=== PATIENT | female | born 1945 | race Caucasian/White ===

== ENCOUNTER → 2018-02-06 14:24 | Outpatient (CLI) | payer MEDICARE, OTHER, SELFPAY ==
[2018-02-06 15:19] LABS: Free T4, Direct Thyroxine 1.22 ng/dL (0.78-2.19)
[2018-02-06 15:33] LABS: Thyroid Stimulating Hormone 1.15 uIU/mL (0.47-4.68)
== END ==
PROVIDERS: Family Provider Family Medicine; PCP Family Medicine; Visit Provider Nurse Practitioner
DX: E03.8 Other specified hypothyroidism (principal); E06.3 Autoimmune thyroiditis
CPT/HCPCS: 36415; 84439; 84443

== ENCOUNTER 2018-03-21 10:25 | Inpatient (IN) | payer MEDICARE, OTHER, SELFPAY ==
[2018-03-21] VITALS (12 sets, daily range): BP systolic 121–146; BP diastolic 63–79; PULSE 63–72; RESP 12–17; TEMP 36.1–36.7; O2SAT 69–98; BMI 27.7
--- NOTE | 2018-03-21 10:39 | DI.RAD.S_ITS ---
PROCEDURE: XR ANKLE RT MIN 3V INDICATIONS: injury TECHNIQUE: 3 views of the ankle were acquired. COMPARISON: None. FINDINGS: Bones: Comminuted and impacted intra-articular fractures of the distal tibia and fibula. Medial malleolar fracture. Plantar and posterior calcaneal spurring. Soft tissues: No tibiotalar joint effusion. Achilles tendon appears normal. IMPRESSION: Comminuted intra-articular fractures of the distal tibia and fibula as well as the medial malleolus. Chronic plantar and posterior calcaneal spurring. Dictated by: Maurisio Wylie M.D. on 03/21/2018 at 11:20 Approved by: Maurisio Wylie M.D. on 03/21/2018 at 11:22
--- NOTE | 2018-03-21 11:13 | ED_ITS ---
HPI - Extremity Injury (Lower) General Chief Complaint: Extremity Injury, Lower Stated Complaint: TWISTED RIGHT ANKLE Time Seen by Provider: 03/21/18 10:44 Source: patient Mode of arrival: wheelchair Limitations: no limitations History of Present Illness HPI Narrative: Patient is a 72-year-old female here for evaluation of right ankle injury. Patient states that prior to arrival she was walking outside in her yard in some wet grass when she slipped and fell. Patient states that she had immediate pain and right ankle. Has deformity. Is unable to ambulate. Did not hit her head. No loss consciousness. No other injuries reported from the event Related Data Home Medications Medication Instructions Recorded Confirmed [CoQ10] 300 mg #0 05/03/16 cholecalciferol (vitamin D3) 5,000 unit PO #0 05/03/16 [Vitamin D3] [krill oil] 1,000 mg PO QDAY #0 03/04/17 cyanocobalamin (vitamin B-12) 5,000 mcg PO #0 03/04/17 magnesium oxide 400 mg PO PRN #0 04/14/17 [SPIROLINA] 1,000 mg PO DAILY #0 05/26/17 [calcium citrate] 1,000 mg PO QDAY #0 11/21/17 levothyroxine 50 mcg PO QAM #0 11/21/17 Previous Rx's Medication Instructions Recorded estradiol 0 PO SEE INSTRUCTIONS #45 tab 09/11/17 progesterone micronized 0 PO SEE INSTRUCTIONS 90 Days #45 09/11/17 [Prometrium] tab hydrocodone-acetaminophen 1 tab PO Q4H PRN #20 tab 03/21/18 Allergies Allergy/AdvReac Type Severity Reaction Status Date / Time No Known Drug Allergies Allergy Verified 03/21/18 11:36 Review of Systems Constitutional Denies fatigue and Denies fever(s) ENT Ears, Nose, Mouth, and Throat: Denies vertigo and Denies dizziness Cardiovascular Denies chest pain, Denies syncope, Denies palpitations and Denies dyspnea Respiratory Denies dyspnea Gastrointestinal Gastrointestinal: Denies abdominal pain, Denies diarrhea, Denies nausea and Denies vomiting Genitourinary Denies dysuria Musculoskeletal Comments: Right ankle pain and deformity Integumentary/Breasts Denies lesions and Denies rash Neurologic Denies confusion, Denies vertigo, Denies dizziness and Denies syncope Comments: No numbness or tingling right lower extremity Psychiatric Denies confusion Endocrine Denies fatigue and Denies palpitations Hematologic/Lymphatic Denies easy bleeding and Denies easy bruising PFSH Family History Father Diabetes mellitus Heart disease Hypertension Grandmother Throat cancer Mother Cancer Mental health problem Grandfather Diabetes mellitus Heart disease Hypertension Social History household members: none Smoking Status: Never smoker Exam Initial Vital Signs Initial Vital Signs: Vital Signs Temperature 96.9 F L 03/21/18 10:35 Pulse Rate 67 03/21/18 10:35 Respiratory Rate 12 03/21/18 10:35 Blood Pressure 132/77 H 03/21/18 10:35 Pulse Oximetry 98 03/21/18 10:35 Const General: cooperative, healthy appearing, well developed and well groomed Orientation: alert, awake and oriented x3 HENMT Head: normal to inspection, normocephalic and atraumatic Ears: hearing grossly normal bilaterally Nose: external nose normal Face and sinus: normal facial exam Resp Effort & Inspection: normal respiratory effort Auscultation: clear to auscultation bilaterally Cardio Rate: regular rate Rhythm: regular rhythm Pulses: radial pulses present bilaterally and dorsalis pedis present on the right GI Inspection: non-distended Palpation: soft and No firm Skin Lesions: no lesions Rashes: no rashes Other: Skin intact around the right ankle Neuro General: alert, awake and oriented x3 Cognition: normal cognition Speech: speech normal Other: Sensation intact to light touch right lower extremity Extrem General: capillary refill normal Other: Right knee unremarkable Patient with obvious deformity and tenderness to palpation about the right ankle. Psych Appearance: grossly normal, well kempt and not disheveled Procedures Orthopedic Splinting/Casting Injury #1: Lower Extremity Injury Location: ankle Lower Extremity Immobilizer: posterior splint and stirrup splint Other Orthopedic Equipment: crutches Course Orders Ordered: ED Orders 03/21/18 10:39 XR ankle RT min 3V Stat 03/21/18 13:53 CT LE RT wo con Stat 03/21/18 15:54 XR ankle RT min 3V Stat 03/21/18 16:54 Consult to Orthopedic Surgery Routine 03/21/18 16:55 Consult to [place] Stat Diazepam (Valium) 5 mg PO Q4HR PRN PRN Reason: spasms Hydromorphone HCl (Dilaudid) 0.5 mg IV Q1H PRN PRN Reason: Pain, Severe (7-10) Morphine Sulfate (Morphine) 2 mg IV Q4HR PRN PRN Reason: Pain, Moderate (4-6) Ondansetron HCl (Zofran) 4 mg IV Q4HR PRN PRN Reason: Nausea And Vomiting Oxycodone HCl (Percolone) 5 mg PO Q3HR PRN PRN Reason: Pain, Moderate (4-6) Discontinued Medications Hydrocodone Bitart/Acetaminophen ([place] 5/325) 1 tab PO NOW ONE Stop: 03/21/18 12:06 Last Admin: 03/21/18 12:18 Dose: 1 tab Diazepam (Valium) 5 mg PO NOW ONE Stop: 03/21/18 15:20 Last Admin: 03/21/18 15:26 Dose: 5 mg Diazepam (Valium) 5 mg PO Q4HR LORENZO Hydromorphone HCl (Dilaudid) 0.5 mg IM NOW ONE Stop: 03/21/18 11:30 Last Admin: 03/21/18 11:36 Dose: 0.5 mg Hydromorphone HCl (Dilaudid) 1 mg IV NOW ONE Stop: 03/21/18 15:20 Last Admin: 03/21/18 15:58 Dose: 1 mg Oxycodone HCl (Oxycodone) 5 mg PO Q3HR PRN PRN Reason: Pain, Moderate (4-6) Vital Signs - 8 hr 03/21/18 11:33 03/21/18 12:19 03/21/18 12:53 Temperature Pulse Rate 72 68 Respiratory Rate 16 Blood Pressure Blood Pressure [Right Arm] 136/63 H 142/76 H 137/64 H Pulse Oximetry 96 98 03/21/18 13:16 03/21/18 14:14 03/21/18 15:24 Temperature Pulse Rate 70 72 Respiratory Rate 16 14 Blood Pressure Blood Pressure [Right Arm] 146/73 H 140/63 H 124/72 H Pulse Oximetry 98 69 L 03/21/18 16:15 03/21/18 17:20 03/21/18 17:30 Temperature 97.5 F L Pulse Rate 68 70 Respiratory Rate 16 17 Blood Pressure 131/69 H Blood Pressure [Right Arm] 121/67 H 127/69 H Pulse Oximetry 97 97 93 MDM - Extremity Injury (Lower) Imaging Data Ankle x-ray: Radiologist's impression: PROCEDURE: XR ANKLE RT MIN 3V INDICATIONS: injury TECHNIQUE: 3 views of the ankle were acquired. COMPARISON: None. FINDINGS: Bones: Comminuted and impacted intra-articular fractures of the distal tibia and fibula. Medial malleolar fracture. Plantar and posterior calcaneal spurring. Soft tissues: No tibiotalar joint effusion. Achilles tendon appears normal. IMPRESSION: Comminuted intra-articular fractures of the distal tibia and fibula as well as the medial malleolus. Chronic plantar and posterior calcaneal spurring. Dictated by: Maurisio Wylie M.D. on 03/21/2018 at 11:20 CT scan ankle: Radiologist's impression: PROCEDURE: CT LE RT WO CON INDICATIONS: Right distal tibia fracture requested by Orthopedics TECHNIQUE: Noncontrast 1-1.5 mm axial sections acquired from above the tibiotalar joint to the bottom of the calcaneus, with coronal and sagittal reformats. COMPARISON: [facility], , XR ANKLE RT MIN 3V, 03/21/2018, 10:24. FINDINGS: Image quality: Excellent. Bones: Severely displaced medial and posterior malleolar fracture. There are punctate loose bodies seen within the tibiotalar joint space. Comminuted displaced fracture of the lateral malleolus at above the level of the tibiofibular syndesmosis there is gross distal tibial articular surface irregularity. The talus appears intact. There is anterior subluxation of the distal tibia relative to the talus Soft tissues: Associated, diffuse circumferential subcutaneous edema IMPRESSION: Comminuted complex trimalleolar fracture subluxation as above. Dictated by: Maurisio Wylie M.D. on 03/21/2018 at 14:47 Approved by: Maurisio Wylie M.D. on 03/21/2018 at 14:50 [facility] Narrative Medical decision making narrative: Patient is neurovascularly intact. Does have a distal tibia/right ankle fracture. I discussed the case with Dr. Franco with Orthopedics who stated that the patient could be placed in a posterior splint and a stirrup and sent home with pain medication and crutches. Splint was placed as above. Just prior to the patient being discharged doctor Franco called back and stated that after he evaluated the x-rays he recommended a CT scan of the ankle. This was obtained. He evaluated the CT scan along with the foot and ankle specialist who recommended further reduction of the ankle. He did come into the emergency department to perform this and removed the splint that I placed and placed a new splint. Afterwards the patient expressed concerns about being able to take care for self at home. She lives alone at home. Dr. Franco will admit for pain control. I discussed the course with the patient. She expressed understanding and agreement. Discharge Plan Departure Patient Disposition: Admitted as Observation Clinical Impression: Closed right ankle fracture Discharge Date/Time: 03/21/18 17:39 Interventions: ED Discharge Assessment Last Done: 03/21/18 17:32 Admit Date/Time: 03/21/18 17:14 Admit Provider: Prieto Franco
[2018-03-21] MEDS: HYDROMORPHONE 2 MG INJ 0.5 MG IM (11:36)
[2018-03-21] MEDS: HYDROCODONE/ACET 5/325 TABLET 1 TAB PO (12:18)
--- NOTE | 2018-03-21 13:53 | DI.CT.S_ITS ---
PROCEDURE: CT LE RT WO CON INDICATIONS: Right distal tibia fracture requested by Orthopedics TECHNIQUE: Noncontrast 1-1.5 mm axial sections acquired from above the tibiotalar joint to the bottom of the calcaneus, with coronal and sagittal reformats. COMPARISON: [facility], CR, XR ANKLE RT MIN 3V, 03/21/2018, 10:24. FINDINGS: Image quality: Excellent. Bones: Severely displaced medial and posterior malleolar fracture. There are punctate loose bodies seen within the tibiotalar joint space. Comminuted displaced fracture of the lateral malleolus at above the level of the tibiofibular syndesmosis there is gross distal tibial articular surface irregularity. The talus appears intact. There is anterior subluxation of the distal tibia relative to the talus Soft tissues: Associated, diffuse circumferential subcutaneous edema IMPRESSION: Comminuted complex trimalleolar fracture subluxation as above. Dictated by: Maurisio Wylie M.D. on 03/21/2018 at 14:47 Approved by: Maurisio Wylie M.D. on 03/21/2018 at 14:50
[2018-03-21] MEDS: diazePAM 5 MG TABLET PO ×2 (15:26→20:53)
--- NOTE | 2018-03-21 15:54 | DI.RAD.S_ITS ---
PROCEDURE: XR ANKLE RT MIN 3V INDICATIONS: repeat post splint right ankle TECHNIQUE: 3 views of the ankle were acquired. COMPARISON: [facility], CR, XR ANKLE RT MIN 3V, 03/21/2018, 10:24. FINDINGS: Bones: There is slightly improved alignment of the medial, posterior and lateral malleolar fractures, status post reduction and placement of cast. IMPRESSION: Improved alignment as above, status post reduction and placement of cast. Dictated by: Maurisio Wylie M.D. on 03/21/2018 at 16:35 Approved by: Maurisio Wylie M.D. on 03/21/2018 at 16:37
[2018-03-21] MEDS: HYDROMORPHONE 1 MG INJ IV (15:58)
--- NOTE | 2018-03-21 16:25 | P.CONS_ITS ---
History of Present Illness Date Patient Seen: 03/21/18 Time Patient Seen: 15:14 Chief complaint: TWISTED RIGHT ANKLE Reason for consult: Right ankle fracture subluxation Requesting provider: Singh Fox Narrative: Ms. Willis is a 72 yo F with a fall from standing and sustained a closed fracture today. She has a trimalleolar fracture with subluxation. She was splinted by Dr. Fox and a CT was ordered under my instruction. CT shows lateral and posterior subluxation of her ankle joint with large posterior malleolus fracture piece. Orthopaedic service was consulted for additional evaluation and treatment. [facility] Family History Father Diabetes mellitus Heart disease Hypertension Grandmother Throat cancer Mother Cancer Mental health problem Grandfather Diabetes mellitus Heart disease Hypertension Social History Smoking Status: Never smoker Meds Home Medications Medication Instructions Recorded Confirmed Type [CoQ10] 300 mg #0 05/03/16 History cholecalciferol (vitamin D3) 5,000 unit PO #0 05/03/16 History [Vitamin D3] [krill oil] 1,000 mg PO QDAY #0 03/04/17 History cyanocobalamin (vitamin B-12) 5,000 mcg PO #0 03/04/17 History magnesium oxide 400 mg PO PRN #0 04/14/17 History [SPIROLINA] 1,000 mg PO DAILY #0 05/26/17 History estradiol 0 PO SEE INSTRUCTIONS #45 tab 09/11/17 Rx progesterone micronized 0 PO SEE INSTRUCTIONS 90 Days #45 09/11/17 Rx [Prometrium] tab [calcium citrate] 1,000 mg PO QDAY #0 11/21/17 History levothyroxine 50 mcg PO QAM #0 11/21/17 History hydrocodone-acetaminophen 1 tab PO Q4H PRN #20 tab 03/21/18 Rx Allergies Allergy/AdvReac Type Severity Reaction Status Date / Time No Known Drug Allergies Allergy Verified 03/21/18 11:36 Review of Systems Review of Systems All systems reviewed & are unremarkable except as noted in HPI and below Exam Vital Signs (past 8 hours): - 03/21/18 10:35 03/21/18 11:33 03/21/18 12:19 Temperature 96.9 F L Pulse Rate 67 72 68 Respiratory Rate 12 16 Blood Pressure 132/77 H Blood Pressure [Right Arm] 136/63 H 142/76 H Pulse Oximetry 98 96 98 03/21/18 12:53 03/21/18 13:16 03/21/18 14:14 Temperature Pulse Rate 70 Respiratory Rate 16 Blood Pressure Blood Pressure [Right Arm] 137/64 H 146/73 H 140/63 H Pulse Oximetry 98 03/21/18 15:24 Temperature Pulse Rate 72 Respiratory Rate 14 Blood Pressure Blood Pressure [Right Arm] 124/72 H Pulse Oximetry 69 L Oxygen Delivery Method Room Air Extrem Other: Right LE: well perfused, compartments soft, able to move toes and normal sensation. Significant welling over ankle region. No skin lesions. Objective Imaging x-ray ankle:: My impression: Right ankle with trimalleolar fx and lateral and posterior subluxation. Assessment & Plan Plan: Assessment/Plan Narrative: 72 yo F with closed right ankle fracture and subluxation. I removed her splint in the ED. I performed close reduction manuver in the ED with IV pain medicine and oral muscle relaxant. Verbal consent was obtained. Patient tolerated the procedure well. A new splint with stirup was applied. Repeat x-ray was evaluated and found to have improved but still mildly posteriorly subluxed ankle, most likely due to gross instability. I discussed the case and my findings with Dr. Ortiz, a foot and ankle orthopedic surgeon. She will plan to perform ORIF of right ankle fx after strict ice and elevation to decrease soft tissue swelling Patient knows Dr. Ortiz and requested her to resume future care of her ankle. I discussed patient's care plan with Dr. Fox. My office will arrange surgery for Ms. Willis for next week once her soft tissue is less swollen. Risk for wound dehiscience for performing surgery in a significant swollen ankle was discussed with the patient. She understands and will perform strict ice and elevation until surgery time. Time Spent With Patient Time with patient: Greater than 35 minutes
--- NOTE | 2018-03-21 18:02 | PC.NURSE ---
Patient arrived via stretcher from ED. Patient was able to move self off of gerny and to room bed w/ minimal assistance of supporting affected RT LE. Cast was placed in ED by provider, see Dr. Franco's note for details. CMS intact, PP in Left foot is ++ unable to obtain from affected ext due to cast placement. Brisk cap refill to bilat. LE. Amnanet reports pain is 3-4/10 and is comfortable at this time. Patient does reports freq. muscle spasms to affected LE
[2018-03-21] MEDS: OXYCODONE IR 5 MG TABLET PO (20:53)
[2018-03-21] MEDS: SODIUM CHLORIDE 0.9% FLUSH 10 ML IV (21:47)
[2018-03-21] MEDS: MORPHINE 2 MG/ML INJ IV (23:02)
[2018-03-22] MEDS: OXYCODONE IR 5 MG TABLET PO ×4 (00:33→16:19)
[2018-03-22 04:22] VITALS: BP 111/71; PULSE 63; RESP 16; TEMP 36.6; O2SAT 96
[2018-03-22] MEDS: diazePAM 5 MG TABLET PO ×4 (06:36→21:02)
[2018-03-22 07:40] VITALS: BP 125/57; PULSE 61; RESP 16; TEMP 36.8; O2SAT 94
[2018-03-22] MEDS: SODIUM CHLORIDE 0.9% FLUSH 10 ML IV ×2 (09:06→20:58)
--- NOTE | 2018-03-22 10:10 | CM.DANOTE ---
Addendum entered by JAYASHREE Engle 03/22/18 13:33: ADD: Per MD, pt medically stable to d/c home today pending PT. Per PT, pt was able to get up and shower but currently refusing PT due to pain and pt has concerns about going home today. PT will try to work with pt this afternoon to determine if she is safe for d/c home yet today. Plan: SW to follow closely after PT to determine if pt can safely d/c home today or tomorrow. JAYASHREE Engle Original Note: Patient is a 72 year old female who was admitted on 03/21/18 for Twisted Right Ankle. Pt has [employer] insurance and her PCP is Dr. Johnson. EMR was reviewed. Per , likely plan of surgical procedure as outpt after discharge. SW met bedside with pt and 2 supportive friends and explained role and pt confirmed that she lives in [place] alone but her 2 next door neighbors are her good supportive friends. Pt is typically Independent at baseline and she drives and denies any hx of HH or SNF. Pt's DPOA is her son who lives in [place] but is flying in this evening to stay with the pt for assist. Pt preference is to d/c home with her son to stay and friends to assist as well if needed. Pt does not anticipate any SW needs. Plan: SW to follow for likely pt d/c home with son to stay and friends to assist when medically stable, possibly even today. 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 Is this patient on Medicare? Yes Is the admit diagnosis the same? No Comment fracture Prior Living Arrangements House Household Members none Type of transporation used prior to Drives own vehicle admit Independent with ADL's Yes Is patient alert and oriented? Yes Caregiver for Another No Comment I at baseline and no other supportive services at baseline. Referrals Initiated None needed Comment Pt has very supportive 2 neighbor/friends bedside who can assist at d/c Discharge Plan Home Transportation Arrangement Friends can provide transport Additional Comment Son flying in today and will stay with pt annika. Review Status In Process Next Review Type Discharge Review
--- NOTE | 2018-03-22 11:00 | PT.IPTN ---
Physical Therapy Treatment Note M3 PT-IP Subjective Start: 03/22/18 12:57 Freq: Status: Active Protocol: Document 03/22/18 11:00 [facility] (Rec: 03/22/18 12:59 [facility] [id number]) Subjective Physical Therapy Visit Type Type Patient Refusal Notes Pt refused to get OOB at this time. 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 Her son will not be here until tonight, she does not think she can go home today. She has 3 SE without rails. Crutch training ordered , but due to pt's age may not be able to use crutches. She may require use of FWW and likely at least 2-3 assist to get into home. Will confirm once pt agreeable to PT.
--- NOTE | 2018-03-22 11:00 | PM.PN.1 ---
Exam Vital Signs (past 8 hours): - 03/22/18 04:22 03/22/18 07:40 Temperature 97.8 F 98.2 F Pulse Rate 63 61 Respiratory Rate 16 16 Blood Pressure 111/71 125/57 H Pulse Oximetry 96 94 Oxygen Delivery Method Room Air Oxygen Flow Rate 0 Assessment & Plan Plan: Assessment/Plan Narrative: Ms. Willis was admitted for pain control and mobility training after a trimalleolar fracture. Her pain is well controlled with oral medication. On exam, her right ankle is neurovascularly intact with no s/s of compartment syndrome or DVT. Will discharge to home today. Instructions given for strict ice and elevate once home. Quality VTE Deep Vein Thrombosis/Pulmonary Embolism Present on Admission: No
--- NOTE | 2018-03-22 11:02 | PM.PN.1 ---
Exam Vital Signs (past 8 hours): - 03/22/18 04:22 03/22/18 07:40 Temperature 97.8 F 98.2 F Pulse Rate 63 61 Respiratory Rate 16 16 Blood Pressure 111/71 125/57 H Pulse Oximetry 96 94 Oxygen Delivery Method Room Air Oxygen Flow Rate 0 Quality VTE Deep Vein Thrombosis/Pulmonary Embolism Present on Admission: No
[2018-03-22 11:25] LABS: Hemoglobin 14.4 g/dL (12.0-16.0); Mean Corpuscular HGB Conc 34.2 % (30-36); Mean Corpuscular Hemoglobin 30.6 PG (26-34); Mean Corpuscular Volume 89.6 fL (80-100); Platelet Count 204 X10^3/uL (150-400); Red Blood Cell Count 4.69 X10^6/uL (4.0-5.2); Red Cell Distribution Width 13.1 % (11.6-14.8); White Blood Cell Count 4.9 X10^3/uL (4.5-11.0)
[2018-03-22] MEDS: MORPHINE 2 MG/ML INJ IV (11:33)
[2018-03-22 11:46] LABS: BUN Creatinine Ratio 17.5 (6-22); Blood Urea Nitrogen 14 mg/dL (7-17); Calcium 9.4 mg/dL (8.4-10.2); Carbon Dioxide 29 mmol/L (22-32); Chloride 102 mmol/L (98-107); Estimated Glomerular Filt Rate > 60.0 mL/min (>60); Glucose 93 mg/dL (80-110); HEMOLYSIS < 15 (0-50); Potassium 4.2 mmol/L (3.4-5.1); Sodium 139 mmol/L (137-145)
[2018-03-22 12:35] VITALS: BP 120/69; PULSE 65; RESP 16; TEMP 36.5; O2SAT 97
[2018-03-22] MEDS: HYDROMORPHONE 0.5 MG INJ IV ×2 (12:43→19:50)
--- NOTE | 2018-03-22 14:00 | PT.IPTN ---
Physical Therapy Treatment Note M3 PT-IP Subjective Start: 03/22/18 12:57 Freq: Status: Active Protocol: Document 03/22/18 14:00 [facility] (Rec: 03/22/18 15:01 [facility] [id number]) Subjective Physical Therapy Visit Type Type Patient Refusal Notes Pt again refusing physical therapy after multiple attempts. She does not think she can go home today, her pain is too high and she is fearful of making it worse. Pt alerted of the importance of mobility, extensive discussion about pre and post surgery which she participated in conversation, but adament about not getting up.
--- NOTE | 2018-03-22 14:26 | PC.NURSE ---
Day shift: Called Dr Franco to let him know that Pt will be staying at hospital tonight. She has been unwilling and unable to get OOB w/ PT. She also has no help at home currently. Son arriving this late brinda from out of state. Pt aware of this at this time.
[2018-03-22 15:15] VITALS: BP 121/66; PULSE 59; RESP 17; TEMP 37.1; O2SAT 98
--- NOTE | 2018-03-22 15:26 | PC.NURSE ---
Patient is A&O x3, pleasant and cooperative w/ staff and is able to make needs known when nec. Patient is resting in bed at this time. Cast to RT LE intact, PP unable to palpate under cast, but CMS intact, toes wiggle, brisk cap refill to all toes and foot feels cool to the touch. Patient states pain in manageable at this time and reports comfort. Plan for surg. w/ Josy this coming week. Patient states she is eager to get into surg. and on the way to recovery. VSS. Call light w/ in reach, bed in low pos. alarm active. Patient states understanding to use call light w/ needs.
[2018-03-22 19:30] VITALS: BP 120/62; PULSE 64; RESP 16; TEMP 36.8; O2SAT 95
[2018-03-23 01:14] VITALS: BP 114/71; PULSE 64; RESP 18; TEMP 37.2; O2SAT 96
[2018-03-23] MEDS: OXYCODONE IR 5 MG TABLET PO ×3 (01:36→10:35)
[2018-03-23] MEDS: diazePAM 5 MG TABLET PO ×4 (01:36→20:12)
--- NOTE | 2018-03-23 07:22 | PM.DS.1 ---
History of Present Illness Date Patient Seen: 03/23/18 Time Patient Seen: 07:22 Chief complaint: TWISTED RIGHT ANKLE Narrative: Patient seen at bedside with a right trimalleolar fracture. Patient states that the ankle is painful and would like it fixed soon. She denies any systemic symptoms such as fever chills shortness of breath. Discharge Providers Date of admission: 03/21/18 17:14 Primary care physician: Savanah Johnson DO Consults: 03/21/18 16:54 Consult to Orthopedic Surgery Routine Comment: Consulting Provider: Prieto Franco Reason for consultation: Admission Has provider been notified: Yes 03/21/18 16:55 Consult to Material Damage Appraiser Stat Comment: Right distal tibia fracture 03/22/18 10:43 Consult to Physical Therapy Evaluate & Treat Comment: crutches training Physician Instructions: Evaluate and Treat Discharge provider: Isa Syed PA-C Summary Discharge Diagnosis: Right trimalleolar ankle fracture Hospital Course: Patient was admitted from the ED with a right trimalleolar ankle fracture over the weekend. Dr. Franco was the on-call physician. Patient was admitted for pain control and physical therapy. Dr. Ferris was consulted and plans on taking the patient to the OR on 03/24/2018. The patient was stable and ready for discharge on 03/23/18. Status at Discharge Functional status at discharge: uses cane/walker (crutches) Overall status at discharge: patient is progressing back to baseline Time Spent with Patient Less than 30 minutes Exam Vital Signs (past 8 hours): - 03/23/18 01:14 Temperature 98.9 F Pulse Rate 64 Respiratory Rate 18 Blood Pressure 114/71 Pulse Oximetry 96 Oxygen Delivery Method Room Air Oxygen Flow Rate 0 Narrative Exam Narrative: Patient is well-developed well-nourished in no acute distress. Patient alert and oriented x3. On examination posterior splint is clean dry and intact on the right ankle. She is neurovascularly intact in this extremity. No signs of compartment syndrome. Objective Labs Result Diagrams: 03/22/18 11:15 03/22/18 11:15 Labs: Laboratory Results - last 24 hr 03/22/18 03/22/18 11:15 11:15 WBC 4.9 RBC 4.69 Hgb 14.4 Hct 42.0 MCV 89.6 MCH 30.6 MCHC 34.2 RDW 13.1 Plt Count 204 Sodium 139 Potassium 4.2 Chloride 102 Carbon Dioxide 29 BUN 14 Creatinine 0.80 Estimated GFR > 60.0 BUN/Creatinine Ratio 17.5 Glucose 93 Calcium 9.4 Discharge Plan Discharge Plan Patient Disposition: Home, Self-Care Provider Discharge Instructions Diet: Regular Activity: NWB to RLE in splint Strict ice and elevate continuously once home Cold/Heat Therapy: Ice to affected area every hour except when sleeping Wound Care Report to your healthcare provider any signs of infection, such as:: chills, fever, night sweats, increased pain and unusual drainage Discharge Data Primary Care Provider: Savanah Johnson Attending Provider: Prieto Franco Admit Date/Time: 03/21/18 17:14 Quality VTE Deep Vein Thrombosis/Pulmonary Embolism Present on Admission: No
[2018-03-23 07:45] VITALS: BP 108/56; PULSE 75; RESP 16; TEMP 36.6; O2SAT 99
[2018-03-23] MEDS: SODIUM CHLORIDE 0.9% FLUSH 10 ML IV ×2 (08:31→22:09)
[2018-03-23] MEDS: HYDROMORPHONE 0.5 MG INJ IV (09:14)
--- NOTE | 2018-03-23 10:24 | PT.IIE ---
Physical Therapy Inpatient Evaluation/Re-Eval Medical Review Prior Functional Status Medical History Reviewed Yes Diet/Fluid Consistency Regular Communication no known deficits Mobility and Gait ind without AD Activities of Daily Living and IADL's reports no issues, is ind Social History Household Members none Living Arrangements House Number of Floors (Floors) Two Floors Number of Stairs To Enter/Railing? 3STE, full flight inside Employment Status Retired Physical Therapy Current Condition Current Condition Evaluation Date 03/23/18 Treatment Diagnosis R trimalleolar fx - impaired mobility Onset Date 03/21/18 Weight Bearing Status Weight Bearing Status Non-Weight Bearing Subjective Physical Therapy Visit Type Type Initial Evaluation Visit Start Time 09:25 Visit Stop Time 09:49 Total Visit Minutes 24 Physical Therapy Visit Comments Patient Comments Pt reports significant pain at rest and even more with activity. Pt reports only getting up OOB when absolutely necessary due to how much pain she's having. Pt is very concerned about going home today, doesn't feel like she can mobilize safely even with the help of her son. Therapy Pain Assessment Pain When Pain Assessed During Mobility Pain Present Pain Present Pain Reported Location Right Ankle Intensity 10 Scale Used Numeric (1 - 10) Description Cramping Sharp Spasm Stabbing Throbbing With Movement Pain Behaviors Crying Facial Grimacing Wincing Pain Management Techniques Apply Cold Modification of Treatment Re-positioning Timing of Activity with Medications PT-Bed Mobility Assessment Supine to Sit Supine to Sit Moderate Assistance Bedrails Sit to Supine Sit to Supine Moderate Assistance Bedrails Scooting Scooting to Edge of Bed Contact Guard Assistance Scooting Up and Down in Bed Dependent PT-Transfer Assessment Sit to and From Stand Sit to and from Stand Moderate Assistance Use of Upper Extremities Equipment Transfer Assistive Device Front Wheeled Walker Transfers Transfer Destination Bed Bedside Commode Transfer Technique Stand Pivot Transfer Ability Level of Assist Minimal Assistance Comments Mobility Comments Pt with heavy reliance on BUE on FWW, needs assist to get up to standing, is having signifiacnt increase in pain with all movement but especially in standing, needs steadying assist once upright and while pivoting. Gait Assessment Comments Gait Comments unable to perform, not appropriate to assess Stair Climbing Assessment Comments Stair Climbing Comments unable to perform, not appropriate to assess PT-Balance Assessment Sitting Balance and Reactions Static Sitting Balance Ability Normal Dynamic Sitting Balance Ability Good Standing Balance and Reactions Static Standing Balance Ability Poor Dynamic Standing Balance Ability Poor Device Used FWW Orientation Orientation/Cognition Level of Alertness Alert Orientation Name Age Birthday Month Date Year Day of Week Place Situation Language Function Ability No Deficits Noted Safety Awareness Understands Safety Issues Memory Description No Deficits Noted Gross Range of Motion Upper Extremity ROM Assessment Within Functional Limits Lower Extremity ROM Assessment Within Functional Limits Impairments except for RLE limited by R ankle splint Strength Comments Strength Comments not formally assessed, BUE are functionally intact but fatiguing quickly Physical Therapy Treatment Education Education Provided Precautions Weight Bearing Status Safety PT Summary Assessment and Plan Potential Rehabilitation Potential Poor Status of Condition at Evaluation Evolving Summary Impairments Pain Strength Balance Bed Mobility Transfers Gait Activity Tolerance Progress Towards Goals Slow Progress due to Pain Assessment Summary Pt is s/p R trimalleolar fx and is significantly limited by pain at this point. Pt is able to perform bed mobility and transfers only but with mod A and 10/10 during the process and residually. Pt is not safe to mobilize in any way on her own especially with such poor pain control. Even with assist from her son, discharging home is not recommended at this time. Patient needs better pain control and would then benefit from daily skilled therapy at a SNF. However, pt is scheduled to have the trimalleolar fracture surgically repaired tomorrow. From a pain control and mobility perspective, it would be much more beneficial for the patient to stay put in one facility rather than transfer back and forth within a 24 hr period. Goals Bed Mobility Goal Standby Assistance Transfer Goal Standby Assistance Front Wheeled Walker Gait Goal Standby Assistance Front Wheel Walker Other Goals up/down 3 steps, method TBD Frequency of Treatment Frequency Of Treatment Twice a Day Treatment Plan Physical Therapy Treatment Plan Transfer Training Gait Training Balance Retraining Discharge Planning Other Recommendations and Next Treatment if going home prior to surgery Focus , son needs extensive training Recommendations To Nursing Amount of Assist Needed 2 Person Assist Discharge Recommendations PT Discharge Recommendations SNF Rehab Other Discharge Recommendations would be better for the patient to stay in the hospital until surgery tomorrow Equipment Needed for Home Before if going home, pt needs FWW Discharge and wheelchair
[2018-03-23] MEDS: OXYCODONE IR 10 MG TABLET PO ×2 (15:45→20:07)
[2018-03-23 16:00] VITALS: BP 133/74; PULSE 72; RESP 18; TEMP 36.5; O2SAT 96
--- NOTE | 2018-03-23 16:20 | CM.DPC ---
DCP/continued: Reviewed chart. Per previous DCP notes current d/c plan is for patient to d/c home with support from her son/Blas whom is currently visiting. Received verbal notification from therapy this AM that SNF recommended because patient requiring much assistance with ADL's. Per staff patient anticipated to have right ankle fx repair tomorrow 7-17? CARTOGRAPHIC TECHNICIAN met with patient explained CM/SW role. At time of visit patient moaning in pain with any movement to her right leg. Patient confirms that she thought initially that she would be able to d/c home today but now feels that until her pain is controlled or surgery performed she does not feel comfortable leaving. Updated patient's white board in room. Left VM with CARMELO/Michael re: the above. Patient does not have insurance benefit to go to SNF prior to surgery. Patient reports that she does not feel like her pain is controlled and plans on surgery tomorrow. Patient not in agreement to pay privately for SNF until surgery. RN updated. P: Pending. Possible home with supportive family when pain controlled or after surgery. Patient may benefit from pending disposition. JAYASHREE Mcclelland
--- NOTE | 2018-03-23 18:10 | PC.NURSE ---
Addendum entered by Qi Morfin R.N. 03/23/18 21:25: Relatively uneventful evening. Pt med at 2000 for discomfort w/good relief. Will be NPO at MO. HL intact/patent. Right leg splint intact, CMS intact Call light w/in reach. Continue w/plan of care. Original Note: Pt watching TV. Med at 1540 w/oxycodone for discomfort w/fair relief. Right lower leg in soft cast. CMS ++. Pt will be NPO after MO for surgery in tomorrow. Call light w/in reach.
--- NOTE | 2018-03-23 19:39 | PM.HP.1 ---
History of Present Illness Date Patient Seen: 03/23/18 Time Patient Seen: 19:39 Chief complaint: TWISTED RIGHT ANKLE Narrative: Ms Willis is a 72-year-old female with a past medical history significant for hypothyroidism and hyperlipidemia who had a ground level fall and twisted her right ankle over the weekend. She was able to crawl across her yard back into her house for assistance. She presented to the emergency department and was evaluated by the ER and 1 of my orthopedic partners. She was found to have a closed right trimalleolar ankle fracture. Closed reduction was attempted with sedation in the ER by the orthopedic surgeon ceramic tile installation helper, with slight improvement. The patient was admitted to the hospital for pain control and I was consulted regarding definitive management. Patient complains of pain in her right ankle including swelling and throbbing aching. This is been ongoing since the injury and is improved with pain medication. She denies any fevers chills nausea or vomiting or recent illnesses. Note the patient currently lives alone in a 2 story home she does note that her sons are coming up to help her and she has loss of community support. Patient History Family & Social History Family History: Reviewed 03/23/18 by Therese Ferris MD Social History: household members none Prior Living Arrangements House Safety & Behavioral: Feels Safe in Current Yes Environment Been Physically Hurt or No Threatened By a Person Suicidal Ideation Description None Suicide Plan Description No Plan Tobacco & Substance use: Smoking Status Never smoker alcohol intake frequency 3 or more drinks per day Substance Use Type does not use Meds Home Medications Medication Instructions Recorded Confirmed Type cholecalciferol (vitamin D3) 5,000 unit PO DAILY #0 05/03/16 03/21/18 History [Vitamin D3] coenzyme Q10 [CoQ-10] 300 mg PO DAILY #0 05/03/16 03/23/18 History cyanocobalamin (vitamin B-12) 5,000 mcg PO DAILY #0 03/04/17 03/21/18 History aaljh-rr-2-dzf-ovp-lpkxrvc-ast 1 cap PO DAILY #0 03/04/17 03/23/18 History [krill oil] magnesium oxide 400 mg PO DAILY #0 04/14/17 03/21/18 History [SPIROLINA] 1,000 mg PO DAILY #0 05/26/17 03/21/18 History [calcium citrate] 1,000 mg PO QDAY #0 11/21/17 03/21/18 History estradiol 0.5 mg PO SEE INSTRUCTIONS 03/21/18 03/21/18 History hydrocodone-acetaminophen 1 tab PO Q4H PRN #20 tab 03/21/18 Rx diazepam 5 mg PO Q4HR PRN #30 tab 03/22/18 Rx hydrocodone-acetaminophen [[place]] 1 tab PO Q4-6H PRN #30 tab 03/22/18 Rx levothyroxine 25 mcg PO DAILY 03/22/18 03/23/18 History progesterone micronized 1 cap PO Q3D 03/23/18 03/23/18 History [Prometrium] Allergies Allergy/AdvReac Type Severity Reaction Status Date / Time No Known Drug Allergies Allergy Verified 03/21/18 11:36 Review of Systems Review of Systems All systems reviewed & are unremarkable except as noted in HPI and below Exam Vital Signs (past 8 hours): - 03/23/18 16:00 Temperature 97.7 F Pulse Rate 72 Respiratory Rate 18 Blood Pressure 133/74 H Pulse Oximetry 96 Oxygen Delivery Method Room Air Oxygen Flow Rate 0 Objective Imaging ankle x ray: My impression: Displaced trimalleolar ankle fracture, right. Posterior talar subluxation. Large posterior malleolar fragment Radiologist's impression: IMPRESSION: Comminuted intra-articular fractures of the distal tibia and fibula as well as the medial malleolus. Chronic plantar and posterior calcaneal spurring. Dictated by: Maurisio Wylie M.D. on 03/21/2018 at 11:20 Approved by: Maurisio Wylie M.D. on 03/21/2018 at 11:22 ECG: Sinus bradycardia [address] right lower extremity: My impression: CT right ankle: Comminuted trimalleolar ankle fracture with large posterior malleolar/posterior pilon fragment encompassing approximately 50% of the joint and extending from lateral to medial. Displaced oblique fracture of the fibula at the level of the syndesmosis extending proximally. Displaced medial malleolus fracture with comminution. Posterior subluxation of the talus at the tibiotalar joint. Radiologist's impression: IMPRESSION: Comminuted complex trimalleolar fracture subluxation as above. Dictated by: Maurisio Wylie M.D. on 03/21/2018 at 14:47 Approved by: Maurisio Wylie M.D. on 03/21/2018 at 14:50 Labs Result Diagrams: 03/22/18 11:15 03/22/18 11:15 Assessment & Plan Plan: Assessment/Plan Narrative: Ms Willis is a 72-year-old female with a past medical history significant for hypothyroidism and hyperlipidemia who had a ground level fall and twisted her right ankle over the weekend. She was able to crawl across her yard back into her house for assistance. She presented to the emergency department and was evaluated by the ER and 1 of my orthopedic partners. She was found to have a closed right trimalleolar ankle fracture. Closed reduction was attempted with sedation in the ER by the orthopedic surgeon ceramic tile installation helper, with slight improvement. The patient was admitted to the hospital for pain control and I was consulted regarding definitive management. The patient has a displaced trimalleolar hyperplantar flexion variant ankle fracture with a very large posterior malleolus piece encompassing approximately 50% of the joint surface. The fracture pattern is unstable and the talus is subluxed posteriorly. I discussed with the patient, the nature of the fracture and treatment options. She has been indicated for surgery to restore the tibiotalar articulation, prevent posttraumatic arthritis, improved function and alignment. She has been continuously elevating above heart level however I do have concerns regarding her soft tissues and explained that she may require a staged procedure with external fixation followed by definitive open reduction internal fixation in a week or 2. We have been able to obtain a spanning fixator as well as the appropriate trays for open reduction internal fixation, the plan will be to evaluate the patient's tissues outside of her splint intraoperatively and the decision will be made for definitive ORIF versus placement of spanning external fixator at that time. The patient understands and agrees with the plan. She understands if the external fixators placed that she will have a staged procedure return to the operating room when her soft tissues are appropriate for open reduction internal fixation and removal of the spanning external fixator. The risks and benefits of the procedure have been discussed with the patient even opportunity to ask questions. The risks of surgery include but are not limited to infection, malunion, nonunion, persistence of pain, damage to nerves and blood vessels, posttraumatic arthritis, inability to return to previous level of activity, DVT, PE, cardiopulmonary complications and . The patient expressed a thorough understanding of the risks and benefits of surgery and has elected to proceed. Consent was signed today. Additionally the patient is currently on hormone replacement therapy. We discussed that this increases her risk for thrombus formation. The patient states she should be able to stop her hormonal replacement therapy, additionally we discussed DVT prophylaxis with Lovenox injections if a stage procedure is necessary, versus possible Xarelto in a 1 stage setting. She does not have a history of osteoporosis she does have a DEXA scan with previous osteopenia and she takes 5000 IU of vitamin-D daily as well as calcium. We discussed calcium and vitamin D in regards to bone healing. We also discussed that postoperative recovery will include 6 weeks nonweightbearing after definitive surgery. The patient states she should have sufficient help at home to avoid snf placement. I discussed anticipate 1 night in the hospital after surgery for pain control and possible discharge home on postop day 1 if she does well with physical therapy. The patient has no allergies to antibiotics and the plan will be 2 g of Ancef preop. Time Spent With Patient Time with patient: 25 - 35 minutes Quality VTE Deep Vein Thrombosis/Pulmonary Embolism Present on Admission: No
[2018-03-23 20:05] VITALS: BP 102/67; PULSE 76; RESP 20; TEMP 36.5; O2SAT 94
[2018-03-23] MEDS: HYDROMORPHONE 2 MG INJ 1 MG IV (22:56)
[2018-03-24] VITALS (26 sets, daily range): BP systolic 89–130; BP diastolic 35–73; PULSE 65–88; RESP 10–24; TEMP 35.7–37.1; O2SAT 69–99; BMI 27.7
--- NOTE | 2018-03-24 | DI.RAD.S_ITS ---
PROCEDURE: XR TIBIA FUBULA RT 2V INDICATIONS: postop external fixation right leg/ankle TECHNIQUE: 2 views of the tibia and fibula were acquired. COMPARISON: [facility], CT, CT LE RT WO CON, 03/21/2018, 14:00. [facility], CR, XR TIBIA FIBULA RT 2V, 03/24/2018, 15:03. FINDINGS: Bones: External fixators within the hindfoot and tibia are present. Distal fibular and tibial fractures are present, as before. Soft tissues: No suspicious soft tissue calcifications or masses. IMPRESSION: Postsurgical sequelae. Dictated by: Daksha Stover M.D. on 03/24/2018 at 17:47 Approved by: Daksha Stover M.D. on 03/24/2018 at 17:48
[2018-03-24] MEDS: diazePAM 5 MG TABLET PO ×4 (07:28→23:46)
[2018-03-24] MEDS: OXYCODONE IR 10 MG TABLET PO ×2 (07:29→11:27)
--- NOTE | 2018-03-24 08:41 | PT.IPTN ---
Surgery Performed Operation Date: 03/24/18 13:30 <No data on this case meets the specified criteria> Physical Therapy Treatment Note M2 PT-IP Current Condition Start: 03/22/18 12:57 Freq: Status: Active Protocol: Document 03/23/18 09:49 RS (Rec: 03/23/18 10:24 RS [id number]) Physical Therapy Current Condition Current Condition Evaluation Date 03/23/18 Treatment Diagnosis R trimalleolar fx - impaired mobility Onset Date 03/21/18 Weight Bearing Status Weight Bearing Status Non-Weight Bearing M3 PT-IP Subjective Start: 03/22/18 12:57 Freq: Status: Active Protocol: Document 03/24/18 08:54 MDD (Rec: 03/24/18 08:59 MDD [id number]) Subjective Physical Therapy Visit Type Type Treatment Note Visit Start Time 08:18 Visit Stop Time 08:41 Total Visit Minutes 23 Physical Therapy Visit Comments Patient Comments Pt agreeable to getting out of bed to commode, but reports that pain meds have not had much effect so far. Last pain meds given around 7:30am. Short Term Goals Transfer to commode Therapy Pain Assessment Pain When Pain Assessed At Rest Pain Present Pain Present Pain Reported Location Right Ankle Intensity 7 Scale Used Numeric (1 - 10) Description Aching M4 PT-IP Mobility and Gait Start: 03/22/18 12:57 Freq: Status: Active Protocol: Document 03/23/18 09:49 RS (Rec: 03/23/18 10:24 RS [id number]) PT-Bed Mobility Assessment Supine to Sit Supine to Sit Moderate Assistance Bedrails Sit to Supine Sit to Supine Moderate Assistance Bedrails Scooting Scooting to Edge of Bed Contact Guard Assistance Scooting Up and Down in Bed Dependent PT-Transfer Assessment Sit to and From Stand Sit to and from Stand Moderate Assistance Use of Upper Extremities Equipment Transfer Assistive Device Front Wheeled Walker Transfers Transfer Destination Bed Bedside Commode Transfer Technique Stand Pivot Transfer Ability Level of Assist Minimal Assistance Comments Mobility Comments Pt with heavy reliance on BUE on FWW, needs assist to get up to standing, is having signifiacnt increase in pain with all movement but especially in standing, needs steadying assist once upright and while pivoting. Gait Assessment Comments Gait Comments unable to perform, not appropriate to assess Stair Climbing Assessment Comments Stair Climbing Comments unable to perform, not appropriate to assess PT-Balance Assessment Sitting Balance and Reactions Static Sitting Balance Ability Normal Dynamic Sitting Balance Ability Good Standing Balance and Reactions Static Standing Balance Ability Poor Dynamic Standing Balance Ability Poor Device Used FWW M5 PT-IP Objective Assessments Start: 03/22/18 12:57 Freq: Status: Active Protocol: Document 03/23/18 09:49 RS (Rec: 03/23/18 10:24 RS [id number]) Orientation Orientation/Cognition Level of Alertness Alert Orientation Name Age Birthday Month Date Year Day of Week Place Situation Language Function Ability No Deficits Noted Safety Awareness Understands Safety Issues Memory Description No Deficits Noted Gross Range of Motion Upper Extremity ROM Assessment Within Functional Limits Lower Extremity ROM Assessment Within Functional Limits Impairments except for RLE limited by R ankle splint Strength Comments Strength Comments not formally assessed, BUE are functionally intact but fatiguing quickly M6 PT-IP Treatment Start: 03/22/18 12:57 Freq: Status: Active Protocol: Document 03/24/18 08:54 MDD (Rec: 03/24/18 08:59 MDD [id number]) Physical Therapy Treatment Exercises Exercises Ankle Pumps Gluteal Sets Quad Sets Heel Slides Straight Leg Raises Supine Hip Abduction Education Education Provided Precautions Weight Bearing Status Safety Other Treatments Other Treatment Performed SBA for supine to sit. CGA for sit to stand, cues for hand placement on bed rather than walker. Hop pivot transfer to commode and back. Pt able to don/doff briefs with CGA. min A for offweighting R LE during bed mobility. M7 PT-IP Assessment and Plan Start: 03/22/18 12:57 Freq: Status: Active Protocol: Document 03/24/18 08:54 MDD (Rec: 03/24/18 08:59 MDD [id number]) PT Summary Assessment and Plan Potential Rehabilitation Potential Good Status of Condition at Evaluation Stable Summary Impairments Pain ROM Transfers Gait Progress Towards Goals Progressing Toward Goals Assessment Summary Pt limited by pain, but demonstrating ability to transfer bed <>commode with CGA and maintaining WB precautions. Goals Bed Mobility Goal Standby Assistance Transfer Goal Standby Assistance Front Wheeled Walker Gait Goal Standby Assistance Front Wheel Walker Other Goals up/down 3 steps, method TBD Frequency of Treatment Frequency Of Treatment Once a Day Treatment Plan Physical Therapy Treatment Plan Transfer Training Gait Training Balance Retraining Discharge Planning Other Recommendations and Next Treatment if going home prior to surgery Focus , son needs extensive training Recommendations To Nursing Amount of Assist Needed 2 Person Assist Discharge Recommendations PT Discharge Recommendations SNF Rehab Equipment Needed for Home Before if going home, pt needs FWW Discharge and wheelchair
[2018-03-24] MEDS: SODIUM CHLORIDE 0.9% FLUSH 10 ML IV ×2 (09:43→22:59)
[2018-03-24] MEDS: CEFAZOLIN 2 GM/100 ML FROZ.PIGGY IV ×2 (09:53→14:48)
--- NOTE | 2018-03-24 11:38 | PC.NURSE ---
Day shift: Gave Pt pain meds and after 10 minutes she called for RN and expresses chest pain. Called RT for EKG and notified the battery recharger. Will continue to monitor.
--- NOTE | 2018-03-24 11:51 | PC.NURSE ---
Day shift: CARMELO Lyons aware of chest pain and came to see the Pt just now. She said to call if abnormal.
--- NOTE | 2018-03-24 11:53 | PC.NURSE ---
Day shift: EKG done and normal.
--- NOTE | 2018-03-24 13:03 | PC.NURSE ---
Day shift: Pt off unit with PACU staff at 1300. She went down with her purse. Door to room 204 dose not close all the way. She had 1 dose of the Cefazolin. Pt appeared to be nervous about the surgery as she was wheeled off unit. 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
[2018-03-24] MEDS: LACTATED RINGERS 1,000 ML 42 ML IV ×3 (13:55→23:39)
--- NOTE | 2018-03-24 13:55 | PM.PREOP ---
Pre-operative Note Interval Note Pre-op Check: Yes History & Physical Reviewed by Physician and Yes Exam Performed Changes: No
--- NOTE | 2018-03-24 15:00 | SUR.HOLD ---
Assumed care at 1345. Requested to start new IV by Dr. Purdy. Then patient readied for transfer to block room for Popliteal nblock by Dr Purdy. Patient tolerated all the activity well. During blocks sedation and pain meds given by Dr Purdy from her stock.
--- NOTE | 2018-03-24 15:50 | SUR.OPER ---
Supine on padded OR bed, head on pillow, arms secured on padded arm boards at <90 degrees abduction, legs uncrossed, safety belt at thigh, tape over blanket over left lower leg, right leg draped free on a stack of bath blankets.
[2018-03-24] MEDS: MEPERIDINE 50 MG/ML IV (16:41)
--- NOTE | 2018-03-24 16:42 | SUR.PHASEI ---
Demerol given for shivering. Has hx of anxiety but feeling this more anaesthesia related. Quickly asleep after with slight dip in sats and BP.
--- NOTE | 2018-03-24 17:07 | P.OP_ITS ---
Operative Date/Time/Diagnoses Date of procedure: 03/24/18 Time of procedure: 15:00 Pre-op diagnosis: Displaced right trimalleolar ankle fracture closed S82.851 a Post-op diagnosis: same Procedure & Clinicians Procedure: Application external fixator, spanning multiplanar. Right trimalleolar ankle fracture CPT code 65747 Same procedure as scheduled: Yes Indications: The patient is a 72-year-old female that sustained a closed right trimalleolar ankle fracture with a large posterior malleolus, posterior pilon on variant with posterior subluxation of the tibiotalar joint. She was initially evaluated by the orthopedic surgeon rectification printer over the weekend and had a closed reduction with minimal improvement she has been referred to me for definitive treatment. She has been diagnosed with an unstable ankle fracture and indicated for surgery to restore joint congruity, minimize the risks of posttraumatic arthritis and restore function. The patient was indicated for open reduction internal fixation versus placement of spanning external fixator depending on soft tissue integrity. The risks and benefits of the procedure have been discussed with the patient even opportunity to ask questions. The risks of surgery include but are not limited to infection, malunion, nonunion, persistence of pain, damage to nerves and blood vessels, posttraumatic arthritis , DVT, PE, cardiopulmonary complications and . Specifically a single stage versus staged protocol with external fixation, staged removal of external fixation and internal fixation were discussed with the patient thoroughly. The patient expressed a thorough understanding of the risks and benefits of surgery and has elected to proceed. Consent was signed on the hospital [facility]. Surgeon: Therese [facility] Manager: Isa Syed Anesthesia Type: General and Peripheral nerve block Operative Notes Findings: The patient's soft tissues were evaluated in the preoperative area. She was found have significant soft tissue swelling not amenable to an open procedure. She did not have any blisters but she did not have skin wrinkles. She did have an area of concern anterior medially in the area of her medial malleolus fracture there was a small pink area of tissue and prominent bone spike could be felt however there was no tenting, or blanching of the skin. Intraoperatively, there was an unstable trimalleolar right ankle fracture with a very large posterior malleolus component, comprising approximately 50% of the articular surface. A multiplanar spanning external fixator was placed utilizing the [place] [employer] jet X set. A 5 mm calcaneus pin was placed followed by (2 ) 5 mm tibial bicortical pins, thread length 30 mm hydroxyapatite coated. Next the same assembly was completed with clamps and bars. A reduction maneuver was carried out under fluoroscopic guidance which included traction and inversion to reduce the talus into the plafond. Following final tightening and confirmation of reduction a kickstand was placed to aid in leg elevation and avoid heel pressure. Closure Type: not applicable Specimen(s): none sent Implants & Drains: [place] [employer] jet X spanning external fixator Estimated Blood Loss (mL): 5 Blood products transfused: none Tourniquet time (min): 0 Procedure in detail: In the preoperative holding area, the appropriate limb and sites were marked, consent was again reviewed with the patient and all questions answered. The splint was removed and the soft tissues were evaluated. Patient was noted to have significant soft tissue swelling, ecchymosis and edema. She did not have any blisters however skin wrinkles were not present. The decision was made to proceed with a staged fixation with spanning external fixation of the right ankle fracture. This was communicated in detail with the patient, who again expressed understanding that the procedure would be a two-stage surgery 1st consisting of placement of external fixation and then later after the soft tissues have resolved a formal open reduction internal fixation with ex fix removal. The patient was brought to the operating room, placed on the operating table and given anesthetic. Following successful levels of anesthesia, the patient was appropriately padded , position secured to the table. An SCD was placed on the contralateral leg. All bony prominences were well padded. A well-padded thigh tourniquet was placed. The surgical leg was then prepped and draped in the usual sterile fashion. A formal time-out procedure was completed confirming the patient, site and side of surgery and administration of appropriate preoperative antibiotics, 2 g Ancef. All were in agreement. The fluoroscopy unit was brought in and the starting point for the calcaneal pin was determined this was centered in the tuberosity of the calcaneus in a medial to lateral direction, in the safe zone. A small skin incision was made with a 15 blade and a hemostat was used to open the wound. 5 mm calcaneal pin was then placed into the wound against the bone and drilled from medial to lateral through the safe zone directly across the calcaneus. Calcaneal pin placement was confirmed on fluoroscopy. Next attention turned to the tibia. Fluoroscopy unit was brought in and scanned from the ankle to the knee to confirm no additional proximal fractures were present. Next the region of the tibial shaft well clear of the operative zone was marked over the skin under fluoroscopic guidance. Incision was made over the skin over the medial face of the tibia just medial to the crest. Hemostat was used to blunt dissect down to bone. Then a protection sleeve and trocar were placed into the wound firm against bone. Placement was confirmed under fluoroscopy to allow a bicortical pin. Next the drill was used to pre drill bicortically. The tourniquet was not elevated during this procedure to allow cooling and prevent thermal injury. A 30 mm pin was measured off the drill then a 5 mm pin with 30 mm hydroxyapatite coated threads was placed into the tibia. The central clamp unit was placed around the 1st pin and the guide used to brianne the location of the 2nd pin the end of the clamp. This location was marked on the skin and the same procedure was repeated with a sharp incision through the skin, hemostat dissection to the bone, drill sleeve and trocar placement, pre-drilling bicortically, measuring and again a 5 mm pin with 30 mm threads was placed. The central clamp assembly was then tightened on the pins and a bar pin construct frame was assembled. Clamps were left loose and fluoroscopy unit was brought over the ankle and a reduction maneuver was performed utilizing axial traction to decompress the joint, elevation with a bump under the heel to reduce the posterior subluxation and inversion to reduce the talus into the mortise. Once adequate reduction was obtained on fluoroscopy all clamps were tightened and then final tightened by hand. Final fluoro shots were obtained confirming appropriate alignment. Finally, the kickstand was constructed out of 3 more bars to allow for loading of the heel and elevation. Pin sites were cleaned and dressed appropriately with Xeroform gauze and Kerlix. An Angel wrap was placed over the ex fix. Patient was then awoken from anesthesia and taken to the recovery room in good condition. There were no known the immediate complications from this procedure. Complications: none Condition: stable Disposition: PACU Plan for aftercare: The patient will be returned to the [facility]. She will remain nonweightbearing on the right lower extremity. She will be strict elevation of the right lower extremity with anticipated staged external fixation removal and open reduction internal fixation in 7-14 days based on the resolution of her soft tissues. She will have 24 hr of antibiotics while in the hospital and likely be discharged home after working with physical therapy tomorrow. I had a thorough discussion with the patient regarding DVT prophylaxis while she is immobilized. He has no personal history of blood clot or pulmonary embolism however she is on hormone replacement therapy. Patient states she should be able to stop this medication and we will try this, but I will also keep her on Lovenox daily for prophylaxis between external fixation and her open reduction internal fixation. If she has successfully able to remain off her hormone replacement therapy then we may consider conversion to aspirin following the final fixation versus continuing with Lovenox or Xarelto until she is able to initiate weight-bearing 6-10 weeks after definitive surgery based on postoperative radiographs/healing.
--- NOTE | 2018-03-24 17:26 | P.PN_ITS ---
Subjective Date Patient Seen: 03/24/18 Time Patient Seen: 17:21 Interval history: Right ankle trimalleolar fracture, displaced, closed status post placement spanning external fixator. Exam Vital Signs (past 8 hours): - 03/24/18 10:29 03/24/18 13:10 03/24/18 14:12 Temperature 98.5 F 97.4 F L Pulse Rate 73 85 80 Respiratory Rate 15 15 12 Blood Pressure 106/61 105/64 103/61 Pulse Oximetry 92 94 96 03/24/18 14:22 03/24/18 14:24 03/24/18 14:27 Temperature Pulse Rate 80 84 82 Respiratory Rate 24 12 12 Blood Pressure 107/64 94/59 L 107/67 Pulse Oximetry 97 96 98 03/24/18 14:32 03/24/18 16:15 03/24/18 16:21 Temperature 97.6 F Pulse Rate 88 76 76 Respiratory Rate 12 12 10 L Blood Pressure 102/68 129/68 H 107/57 L Pulse Oximetry 97 99 97 03/24/18 16:26 03/24/18 16:31 03/24/18 16:36 Temperature Pulse Rate 86 78 76 Respiratory Rate 14 12 16 Blood Pressure 115/61 119/67 130/61 H Pulse Oximetry 95 94 95 03/24/18 16:40 03/24/18 16:46 03/24/18 16:51 Temperature 98.5 F Pulse Rate 72 70 76 Respiratory Rate 12 10 L 14 Blood Pressure 99/51 L 100/46 L 90/35 L Pulse Oximetry 92 94 95 03/24/18 16:55 03/24/18 17:01 Temperature 98.0 F Pulse Rate 70 75 Respiratory Rate 14 14 Blood Pressure 111/52 L 95/43 L Pulse Oximetry 93 92 Oxygen Delivery Method Room Air Oxygen Flow Rate 2 Narrative Exam Narrative: Alert oriented recover from anesthesia. Vital signs stable No acute distress. Right lower extremity ex fix in place with kickstand, heel floating. Pin sites well bolstered. Brisk capillary refill. Edema no blisters present. Soft calf Objective Labs Result Diagrams: 03/22/18 11:15 03/22/18 11:15 Assessment & Plan Post-op Postoperative Procedures Operation Date: 03/24/18 13:30 Actual Procedures Side Surgeon p External Fixation Fracture Right Therese Ferris MD Postop day 0 status post placement spanning external fixator right ankle, displaced trimalleolar fracture Plan: 1. Nonweightbearing right lower extremity, keep dressing dry and in place. 2. Work with Physical therapy occupational therapy plan discharge home postoperative day 1, will remain nonweightbearing and elevation over the next 1- 2 weeks before definitive fixation. 3. Will have Lovenox 40 mg subcutaneous daily for DVT prophylaxis 4. Will complete 2 doses Ancef postop. 5. Follow up in office with Dr. Josy BALDWIN Ortho in 7-10 days for wound check (next week) Time Spent With Patient less than 15 minutes Quality VTE Deep Vein Thrombosis/Pulmonary Embolism Present on Admission: No
[2018-03-24] MEDS: DOCUSATE 100 MG CAPSULE PO (19:43)
--- NOTE | 2018-03-24 19:48 | PC.NURSE ---
Addendum entered by Qi Morfin R.N. 03/24/18 23:00: Pt had uneventful evening. Continues to deny discomfort. Foot remains numb. HL in LAC D/C'd intact due to irritation. Satisfactory post op course. Call light w/in reach, bed alarm on for pt safety. Continue w/plan of care. Original Note: Pt arrived back to at 1725. Alert/drowsy. Right leg in appliance hardware. CMS + w/ 1+ Edema. Pt tearful when seeing oit for the first time. MD in to see. Denies discomfort at this time. HL LAC intact/patent. Med w/valium at 1945 for anxiety. Stable post op course. Call light w/in reach, bed alarm on for pt safety.
[2018-03-25] MEDS: diazePAM 5 MG TABLET PO ×3 (04:23→17:14)
[2018-03-25 04:37] VITALS: BP 109/65; PULSE 66; RESP 15; TEMP 36.4; O2SAT 94
[2018-03-25] MEDS: LEVOTHYROXINE 25 MCG TABLET PO (06:09)
[2018-03-25 08:00] VITALS: BP 109/52; PULSE 75; RESP 16; TEMP 36.4; O2SAT 95
--- NOTE | 2018-03-25 09:10 | P.PN_ITS ---
Subjective Date Patient Seen: 03/25/18 Time Patient Seen: 09:03 Interval history: Hospital day 5, PD 1. S/P placement of external fixator for right ankle fracture by Dr. Ferris. Patient states that she has no feeling in her right foot or toes this am. Has not been up with PT. Exam Vital Signs (past 8 hours): - 03/25/18 04:37 03/25/18 08:00 Temperature 97.5 F L 97.5 F L Pulse Rate 66 75 Respiratory Rate 15 16 Blood Pressure 109/65 109/52 L Pulse Oximetry 94 95 Oxygen Delivery Method Room Air Oxygen Flow Rate 0 Narrative Exam Narrative: Patient in bed. Alert and orient x3. Right lower leg with external fixator on. Skin condition looks good. No sensation in right foot or toes. Cannot move toes. Cap refill good in toes. Left calf soft and nontender. Objective Labs Result Diagrams: 03/22/18 11:15 03/22/18 11:15 Assessment & Plan Post-op Postoperative Procedures Operation Date: 03/24/18 13:30 Actual Procedures Side Surgeon p External Fixation Fracture Right Therese Ferris MD PD 1 placement of external fixator on right ankle. Plan for d/c home tomorrow since block has not worn off yet. Lovenox injection teaching. Dr. Ferris's plan: 1. (ok to rest frame on floor for balance)-- practice bed to chair/restroom with PT. 2. DC with 1) Lovenox x 14 days. 2) oxycodone 5-10 mg q4 hrs prn pain, 3) colace 100mg bid, 4) valium 5mg PO Q 6hrs prn spasms. -5) may take tylenol prn ( no more than 3000mg in 24 hour period) 3. elevate extremity 4. Keep dressing c/d/i 5. Has follow up appt with Dr. Ferris 04/02/18---Plan will be to eval soft tissues in clinic on 04/02. If swelling down enough, likely will be, then plan 2nd surgery on 04/03. Will go ahead and schedule patient for this --but may need to adjust based on swelling. Time Spent With Patient less than 15 minutes Quality VTE Deep Vein Thrombosis/Pulmonary Embolism Present on Admission: No
[2018-03-25] MEDS: DOCUSATE 100 MG CAPSULE PO ×2 (09:20→20:49)
[2018-03-25] MEDS: ENOXAPARIN 40 MG/0.4 ML SYRINGE SUBCUT (09:20)
[2018-03-25] MEDS: SODIUM CHLORIDE 0.9% FLUSH 10 ML IV ×2 (09:20→20:49)
[2018-03-25 09:34] VITALS: O2SAT 95
[2018-03-25] MEDS: OXYCODONE IR 10 MG TABLET PO ×2 (09:46→19:26)
--- NOTE | 2018-03-25 10:00 | PT.IPRE ---
Surgery Performed Operation Date: 03/24/18 13:30 Actual Procedures p External Fixation Fracture(Right) - Therese Ferris MD Physical Therapy Inpatient Evaluation/Re-Eval M1 PT/OT-IP Prior Functional Status Start: 03/22/18 12:57 Freq: Status: Active Protocol: Document 03/25/18 11:59 MDD (Rec: 03/25/18 12:04 MDD [email or web address]) Medical Review Prior Functional Status Medical History Reviewed Yes Diet/Fluid Consistency Regular Communication no known deficits Mobility and Gait ind without AD Activities of Daily Living and IADL's reports no issues, is ind Social History Household Members none Living Arrangements House Number of Floors (Floors) Two Floors Number of Stairs To Enter/Railing? 3 steps with no railing to enter. 12 stairs with R hand railing to shower on second floor. Bedroom and 1/2 bath on 1st floor. 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 One son in town from [place], other son coming in [facility]. Someone will be home M2 PT-IP Current Condition Start: 03/22/18 12:57 Freq: Status: Active Protocol: Document 03/25/18 11:59 MDD (Rec: 03/25/18 12:04 MDD [email or web address]) Physical Therapy Current Condition Current Condition Evaluation Date 03/23/18 Treatment Diagnosis R trimalleolar fx - impaired mobility Onset Date 03/21/18 Weight Bearing Status Weight Bearing Status Non-Weight Bearing M3 PT-IP Subjective Start: 03/22/18 12:57 Freq: Status: Active Protocol: Document 03/25/18 10:00 MDD (Rec: 03/25/18 12:49 MDD [email or web address]) Subjective Physical Therapy Visit Type Type Re-Evaluation Visit Start Time 09:25 Visit Stop Time 10:00 Total Visit Minutes 35 Number of RETAIL ROUTE SUPERVISOR Visits 0 Therapy Pain Assessment Pain When Pain Assessed During Mobility Pain Present Pain Present Pain Reported Location Right Ankle Intensity 5 Scale Used Numeric (1 - 10) Description Aching Pain Management Techniques Timing of Activity with Medications M4 PT-IP Mobility and Gait Start: 03/22/18 12:57 Freq: Status: Active Protocol: Document 03/25/18 10:00 MDD (Rec: 03/25/18 12:49 MDD [email or web address]) PT-Bed Mobility Assessment Rolling Type of Rolling Bilateral Level of Assist Independent Supine to Sit Supine to Sit Independent Sit to Supine Sit to Supine Minimal Assistance Scooting Scooting to Edge of Bed Independent Scooting Up and Down in Bed Independent PT-Transfer Assessment Sit to and From Stand Sit to and from Stand Contact Guard Assistance Equipment Transfer Assistive Device Gait Belt Front Wheeled Walker Orthotic/Prosthetic Devices or Brace: No Transfers Transfer Destination Toilet Transfer Ability Level of Assist Contact Guard Assistance Comments Mobility Comments Able to perform sit to stand with CGA when using FWW, when using crutches requires min A. Gait Assessment Gait Distance (Feet) (feet) 20 Able to Maintain Weight Bearing Status No During Gait Assistive Devices Assistive Device Gait Belt Front Wheeled Walker Orthotic/Prosthetic Devices or Brace: No Comments Gait Comments unable to trial gait this am with crutches. Fatigued after 10 feet x 2 (to and from commode) hopping with FWW. PT-Balance Assessment Sitting Balance and Reactions Static Sitting Balance Ability Normal Dynamic Sitting Balance Ability Normal Standing Balance and Reactions Static Standing Balance Ability Good Dynamic Standing Balance Ability Fair Device Used good balance with FWW, fair with crutches M5 PT-IP Objective Assessments Start: 03/22/18 12:57 Freq: Status: Active Protocol: Document 03/25/18 10:00 MDD (Rec: 03/25/18 12:49 MDD [email or web address]) Orientation Orientation/Cognition Level of Alertness Alert Orientation Name Age Birthday Month Date Year Day of Week Place Situation Language Function Ability No Deficits Noted Safety Awareness Understands Safety Issues Memory Description No Deficits Noted Gross Range of Motion Lower Extremity ROM Assessment Within Functional Limits Strength Lower Extremity Strength Assessment Within Functional Limits Sensation Assessment Comments Sensation Comments continues to report some n/t in R LE with returning sensation to toes. M6 PT-IP Treatment Start: 03/22/18 12:57 Freq: Status: Active Protocol: Document 03/25/18 10:00 MDD (Rec: 03/25/18 12:49 MDD [email or web address]) Physical Therapy Treatment Education Education Provided Precautions Weight Bearing Status Safety Other Treatments Other Treatment Performed Per orthopedics: pt may rest external fixation on ground, but not to bear weight. M7 PT-IP Assessment and Plan Start: 03/22/18 12:57 Freq: Status: Active Protocol: Document 03/25/18 11:59 MDD (Rec: 03/25/18 12:04 MDD [email or web address]) PT Summary Assessment and Plan Recommendations To Nursing Amount of Assist Needed 2 Person Assist Discharge Recommendations PT Discharge Recommendations SNF Rehab
--- NOTE | 2018-03-25 11:55 | PC.NURSE ---
~0800: Pt A&O, anxious re: overall health situation and plans at discharge. RT External fixation device in place with two pins that are CDI. Pt without movement or sensation. RT foot is warm, faint palpable pedal pulse. ~0940 pt able to move toes and c/o pain prior to P.T. Pain tolerable at time of this note, expresses more anxiety and feeling uneasy than pain. Per pt, son is going through divorce which is causing patient's anxiety. Medicated per EMAR w/valium. Will continue to monitor.
[2018-03-25 12:00] VITALS: BP 121/69; PULSE 80; RESP 16; TEMP 36.5; O2SAT 93
--- NOTE | 2018-03-25 12:34 | P.PN_ITS ---
Subjective Date Patient Seen: 03/25/18 Time Patient Seen: 12:27 Interval history: POD 1 spanning exfx R trimal ankle fracture/ posterior pilon variant. Feeling ok today. block wearing off. worked with PT today Had been adamant about dc home, but seems to be thinking about SNF now. eating lunch, tolerating meds. Exam Vital Signs (past 8 hours): - 03/25/18 04:37 03/25/18 08:00 03/25/18 09:34 Temperature 97.5 F L 97.5 F L Pulse Rate 66 75 Respiratory Rate 15 16 Blood Pressure 109/65 109/52 L Pulse Oximetry 94 95 95 03/25/18 12:00 Temperature 97.7 F Pulse Rate 80 Respiratory Rate 16 Blood Pressure 121/69 H Pulse Oximetry 93 Fraction of Inspired Oxygen 21 Oxygen Delivery Method Room Air Oxygen Flow Rate 0 Narrative Exam Narrative: GEN A&O x 3 NCAT breathing unlabored on RA RRR RLE: in exfx, with sling for toes. dressing intact. wiggles toes, sensation returning well. palp DP. appropriate positioning. calf soft. moderate swelling no blisters. no threatened skin Objective Labs Result Diagrams: 03/22/18 11:15 03/22/18 11:15 Assessment & Plan Post-op Postoperative Procedures Operation Date: 03/24/18 13:30 Actual Procedures Side Surgeon p External Fixation Fracture Right Therese Ferris MD PD 1 placement of external fixator on right ankle. Plan for d/c home tomorrow vs snf per PT recs. Lovenox injection teaching. PLAN: 1. (ok to rest frame on floor for balance)-- practice bed to chair/restroom with PT. 2. DC with 1) Lovenox x 14 days. 2) oxycodone 5-10 mg q4 hrs prn pain, 3) colace 100mg bid, 4) valium 5mg PO Q 6hrs prn spasms. -5) may take tylenol prn ( no more than 3000mg in 24 hour period) 3. elevate extremity/ ice 4. Keep dressing c/d/i 5. Has follow up appt with Dr. Ferris 04/02/18---Plan will be to eval soft tissues in clinic on 04/02. If swelling down enough, likely will be, then plan 2nd surgery on 04/03. Will go ahead and schedule patient for this --but may need to adjust based on swelling. PLand discussed with patient in detail. Time Spent With Patient less than 15 minutes Quality VTE Deep Vein Thrombosis/Pulmonary Embolism Present on Admission: No
[2018-03-25] MEDS: HYDROMORPHONE 0.5 MG INJ IV ×2 (12:50→20:49)
[2018-03-25 15:35] VITALS: BP 105/62; PULSE 77; RESP 18; TEMP 36.1; O2SAT 94
--- NOTE | 2018-03-25 16:31 | OT.IPNOTE ---
Pt refuses PT treatment this afternoon due to feeling foggy from medication. PT will f/u again tomorrow am.
[2018-03-25 20:00] VITALS: BP 120/74; PULSE 75; RESP 17; TEMP 36.2; O2SAT 96
[2018-03-26] VITALS (8 sets, daily range): BP systolic 97–125; BP diastolic 56–73; PULSE 61–98; RESP 14–17; TEMP 36.2–36.7; O2SAT 94–100
[2018-03-26] MEDS: LEVOTHYROXINE 25 MCG TABLET PO (06:15)
[2018-03-26] MEDS: OXYCODONE IR 10 MG TABLET PO (07:06)
[2018-03-26] MEDS: diazePAM 5 MG TABLET PO ×3 (07:47→22:08)
[2018-03-26] MEDS: SODIUM CHLORIDE 0.9% FLUSH 10 ML IV ×2 (08:04→20:31)
[2018-03-26] MEDS: ENOXAPARIN 40 MG/0.4 ML SYRINGE SUBCUT (08:04)
[2018-03-26] MEDS: DOCUSATE 100 MG CAPSULE PO ×2 (08:04→20:31)
--- NOTE | 2018-03-26 10:39 | PM.PNPO.1 ---
Subjective Date Patient Seen: 03/26/18 Time Patient Seen: 10:40 Interval history: Hospital day 6, postop day 2 following external fixator placement to right lower leg for displaced right trimalleolar fracture by Dr. Ferris on 03/24/2018. Patient is nonweightbearing to the right leg and needing elevation. Has been getting oxycodone 10 mg for pain which is not lasting. She has received hydromorphone IV which worked well. The patient states she does have an appointment for follow-up with Dr. Ferris on 04/02/2018 and is scheduled for ORIF surgery on 04/03/[address] Ferris discussion has been done regarding need for SNF and patient is scheduled for [facility] at this time. Exam Vital Signs (past 8 hours): - 03/26/18 06:23 03/26/18 08:54 Temperature 97.7 F 97.7 F Pulse Rate 67 61 Respiratory Rate 16 14 Blood Pressure 123/60 H 101/57 L Pulse Oximetry 97 100 Fraction of Inspired Oxygen 21 Oxygen Delivery Method Room Air Oxygen Flow Rate 0 Narrative Exam Narrative: Alert, oriented no acute distress resting in bed. Right leg. Ex fixator in place. Good blanching and sensation to foot. Patient able to move toes. No signs of infection or inflammation around the pin sites. Objective Labs Result Diagrams: 03/22/18 11:15 03/22/18 11:15 Assessment & Plan Post-op Postoperative Procedures Operation Date: 03/24/18 13:30 Actual Procedures Side Surgeon p External Fixation Fracture Right Therese Ferris MD Patient will continue with her current care. I did changed to Dilaudid 2 mg for pain control. I anticipate discharge to [facility] on 03/28/2018 of for further care because of the ex fixator and nonweightbearing status. Time Spent With Patient less than 15 minutes Quality VTE Deep Vein Thrombosis/Pulmonary Embolism Present on Admission: No
--- NOTE | 2018-03-26 10:43 | PT.IPTN ---
Surgery Performed Operation Date: 03/24/18 13:30 Actual Procedures p External Fixation Fracture(Right) - Therese Ferris MD Physical Therapy Treatment Note M2 PT-IP Current Condition Start: 03/22/18 12:57 Freq: Status: Active Protocol: Document 03/25/18 11:59 MDD (Rec: 03/25/18 12:04 MDD [email or web address]) Physical Therapy Current Condition Current Condition Evaluation Date 03/23/18 Treatment Diagnosis R trimalleolar fx - impaired mobility Onset Date 03/21/18 Weight Bearing Status Weight Bearing Status Non-Weight Bearing M3 PT-IP Subjective Start: 03/22/18 12:57 Freq: Status: Active Protocol: Document 03/26/18 10:43 MDD (Rec: 03/26/18 11:20 MDD [id number]) Subjective Physical Therapy Visit Type Type Treatment Note Visit Start Time 10:04 Visit Stop Time 10:43 Total Visit Minutes 39 Number of BEHAVIORAL PSYCHOLOGIST Visits 0 Physical Therapy Visit Comments Patient Comments Feels much better than she did yesterday. Agreeable to working with PT this am. Short Term Goals Get up and to the commode. Therapy Pain Assessment Pain When Pain Assessed At Rest Pain Present Pain Present Pain Reported Location Right Ankle Intensity 7 Scale Used Numeric (1 - 10) Pain Management Techniques Timing of Activity with Medications M4 PT-IP Mobility and Gait Start: 03/22/18 12:57 Freq: Status: Active Protocol: Document 03/25/18 10:00 MDD (Rec: 03/25/18 12:49 MDD [email or web address]) PT-Bed Mobility Assessment Rolling Type of Rolling Bilateral Level of Assist Independent Supine to Sit Supine to Sit Independent Sit to Supine Sit to Supine Minimal Assistance Scooting Scooting to Edge of Bed Independent Scooting Up and Down in Bed Independent PT-Transfer Assessment Sit to and From Stand Sit to and from Stand Contact Guard Assistance Equipment Transfer Assistive Device Gait Belt Front Wheeled Walker Orthotic/Prosthetic Devices or Brace: No Transfers Transfer Destination Toilet Transfer Ability Level of Assist Contact Guard Assistance Comments Mobility Comments Able to perform sit to stand with CGA when using FWW, when using crutches requires min A. Gait Assessment Gait Distance (Feet) (feet) 20 Able to Maintain Weight Bearing Status No During Gait Assistive Devices Assistive Device Gait Belt Front Wheeled Walker Orthotic/Prosthetic Devices or Brace: No Comments Gait Comments unable to trial gait this am with crutches. Fatigued after 10 feet x 2 (to and from commode) hopping with FWW. PT-Balance Assessment Sitting Balance and Reactions Static Sitting Balance Ability Normal Dynamic Sitting Balance Ability Normal Standing Balance and Reactions Static Standing Balance Ability Good Dynamic Standing Balance Ability Fair Device Used good balance with FWW, fair with crutches M5 PT-IP Objective Assessments Start: 03/22/18 12:57 Freq: Status: Active Protocol: Document 03/25/18 10:00 MDD (Rec: 03/25/18 12:49 MDD [email or web address]) Orientation Orientation/Cognition Level of Alertness Alert Orientation Name Age Birthday Month Date Year Day of Week Place Situation Language Function Ability No Deficits Noted Safety Awareness Understands Safety Issues Memory Description No Deficits Noted Gross Range of Motion Lower Extremity ROM Assessment Within Functional Limits Strength Lower Extremity Strength Assessment Within Functional Limits Sensation Assessment Comments Sensation Comments continues to report some n/t in R LE with returning sensation to toes. M6 PT-IP Treatment Start: 03/22/18 12:57 Freq: Status: Active Protocol: Document 03/26/18 10:43 MDD (Rec: 03/26/18 11:20 MDD [id number]) Physical Therapy Treatment Education Education Provided Precautions Weight Bearing Status Safety Other Treatments Other Treatment Performed CGA for sit to stand - cues for pushing from bed rather than FWW. Gait with FWW <> commode (~20 feet), CGA with hand on walker for stability. Cues for proper rhythm/ proximity to walker. Additional 20 feet to recliner and stand pivot transfer from recliner to bed CGA with FWW. Performed seated therex: R LE- LAQ, hip flexion. L LE ( supine) - ankle pumps, heelslides and SLR. M7 PT-IP Assessment and Plan Start: 03/22/18 12:57 Freq: Status: Active Protocol: Document 03/26/18 10:43 MDD (Rec: 03/26/18 11:20 MDD [id number]) PT Summary Assessment and Plan Potential Rehabilitation Potential Good Status of Condition at Evaluation Evolving Summary Impairments Pain Bed Mobility Transfers Gait Activity Tolerance Progress Towards Goals Progressing Toward Goals Assessment Summary Pt demonstrates improved endurance with gait using FWW while maintaining NWB R LE. Still too unsteady in standing to trial crutch training. Continues to be most limited by pain. Goals Bed Mobility Goal Independent Transfer Goal Independent Gait Distance 50 feet with least resistive assistive device TBD. Other Goals Ascend/descend 12 steps with L hand railing while maintaining WB precautions. Days to Meet Goals 2 Frequency of Treatment Frequency Of Treatment Twice a Day Treatment Plan Physical Therapy Treatment Plan Transfer Training Gait Training Therapeutic Exercise Post Op Education Discharge Planning Other Recommendations and Next Treatment Continue with crutch training, Focus family education. Recommendations To Nursing Amount of Assist Needed 1 Person Assist Discharge Recommendations PT Discharge Recommendations SNF Rehab Other Discharge Recommendations Pt agreeable to rehab at [facility] d/c
--- NOTE | 2018-03-26 10:45 | P.PN_ITS ---
Subjective Date Patient Seen: 03/26/18 Time Patient Seen: 10:40 Interval history: Hospital day 6, postop day 2 following external fixator placement to right lower leg for displaced right trimalleolar fracture by Dr. Ferris on 03/24/2018. Patient is nonweightbearing to the right leg and needing elevation. Has been getting oxycodone 10 mg for pain which is not lasting. She has received hydromorphone IV which worked well. The patient states she does have an appointment for follow-up with Dr. Ferris on 2017 and is scheduled for ORIF surgery on 04/03/[address] Ferris discussion has been done regarding need for SNF and patient is scheduled for [facility] at this time. Exam Vital Signs (past 8 hours): - 03/26/18 06:23 03/26/18 08:54 Temperature 97.7 F 97.7 F Pulse Rate 67 61 Respiratory Rate 16 14 Blood Pressure 123/60 H 101/57 L Pulse Oximetry 97 100 Fraction of Inspired Oxygen 21 Oxygen Delivery Method Room Air Oxygen Flow Rate 0 Narrative Exam Narrative: Alert, oriented no acute distress resting in bed. Right leg. Ex fixator in place. Good blanching and sensation to foot. Patient able to move toes. No signs of infection or inflammation around the pin sites. Objective Labs Result Diagrams: 03/22/18 11:15 03/22/18 11:15 Assessment & Plan Post-op Postoperative Procedures Operation Date: 03/24/18 13:30 Actual Procedures Side Surgeon p External Fixation Fracture Right Therese Ferris MD Patient will continue with her current care. I did changed to Dilaudid 2 mg for pain control. I anticipate discharge to [facility] on 03/28/2018 of for further care because of the ex fixator and nonweightbearing status. Time Spent With Patient less than 15 minutes Quality VTE Deep Vein Thrombosis/Pulmonary Embolism Present on Admission: No
[2018-03-26] MEDS: HYDROMORPHONE 2 MG TABLET PO ×3 (10:50→22:29)
--- NOTE | 2018-03-26 11:30 | CM.DPC ---
DCP/Continued: Reviewed chart. Continued d/c recommendation is SNF for right ankle fx recovery. Spoke with UR/RN Griffin and he confirms that patient changed to inpatient status on 03-25-18. In addition, spoke with Ortho/Biju Beaver re: planning. Biju reports that current plan is for patient to be seen next in local orthopedic office by Dr. Ferris. Surgery to repair ankle (ORIF) is tentatively scheduled for next Friday at [facility] Met with patient to discuss d/c options. Patient continues to report that she does not have assistance at home at home and continues to have off/on issues with pain control. Patient aware and agreeable to SNF stay prior to possibly returning at the end of next week of surgery. Provided patient with contracted Medicare SNF list. Patient's first choice is [facility]. JAYASHREE placed call to Anna with admit at [facility] requesting that she review for admit. Patient anticipated to be ready to d/c on Friday03-28-18. Orthopedic team aware and agreeable to the above. P: [facility] reviewing for potential admit on 03-28-18. Per Anna, do not anticipate any issue with acceptance. Anna aware that if patient returns next week for surgery she does not need to be hospitalized to return to [facility]. Patient meeting 3 midnight rule this admit. JAYASHREE Mcclelland
--- NOTE | 2018-03-26 13:55 | PC.NURSE ---
Pt A&O. Pain medication changed to po dilaudid for better management of pain. External fixation in place to rt LE, 2 pins CDI. Weak palpable pedal pulse, extrem. warm and able to wiggle toes. She reports sensation present but may have some tingling-unable to adequately describe. Pt able to pivot to commode with FWW. Pt continues with P.T and pain management.
--- NOTE | 2018-03-26 15:30 | PT.IPTN ---
Surgery Performed Operation Date: 03/24/18 13:30 Actual Procedures p External Fixation Fracture(Right) - Therese Ferris MD Physical Therapy Treatment Note M2 PT-IP Current Condition Start: 03/22/18 12:57 Freq: Status: Active Protocol: Document 03/25/18 11:59 MDD (Rec: 03/25/18 12:04 MDD [email or web address]) Physical Therapy Current Condition Current Condition Evaluation Date 03/23/18 Treatment Diagnosis R trimalleolar fx - impaired mobility Onset Date 03/21/18 Weight Bearing Status Weight Bearing Status Non-Weight Bearing M3 PT-IP Subjective Start: 03/22/18 12:57 Freq: Status: Active Protocol: Document 03/26/18 15:30 MDD (Rec: 03/26/18 15:46 MDD [id number]) Subjective Physical Therapy Visit Type Type Treatment Note Visit Start Time 15:14 Visit Stop Time 15:30 Total Visit Minutes 16 Number of RESIDENTIAL FINISH CARPENTER Visits 0 Physical Therapy Visit Comments Patient Comments Pt states that she slept a lot after getting pain medication after her PT session this am. Agreeable to second PT session this afternoon. Therapy Pain Assessment Pain When Pain Assessed At Rest Pain Present Pain Present Pain Reported Location Right Ankle Intensity 7 Scale Used Numeric (1 - 10) Description Aching M4 PT-IP Mobility and Gait Start: 03/22/18 12:57 Freq: Status: Active Protocol: Document 03/25/18 10:00 MDD (Rec: 03/25/18 12:49 MDD [email or web address]) PT-Bed Mobility Assessment Rolling Type of Rolling Bilateral Level of Assist Independent Supine to Sit Supine to Sit Independent Sit to Supine Sit to Supine Minimal Assistance Scooting Scooting to Edge of Bed Independent Scooting Up and Down in Bed Independent PT-Transfer Assessment Sit to and From Stand Sit to and from Stand Contact Guard Assistance Equipment Transfer Assistive Device Gait Belt Front Wheeled Walker Orthotic/Prosthetic Devices or Brace: No Transfers Transfer Destination Toilet Transfer Ability Level of Assist Contact Guard Assistance Comments Mobility Comments Able to perform sit to stand with CGA when using FWW, when using crutches requires min A. Gait Assessment Gait Distance (Feet) (feet) 20 Able to Maintain Weight Bearing Status No During Gait Assistive Devices Assistive Device Gait Belt Front Wheeled Walker Orthotic/Prosthetic Devices or Brace: No Comments Gait Comments unable to trial gait this am with crutches. Fatigued after 10 feet x 2 (to and from commode) hopping with FWW. PT-Balance Assessment Sitting Balance and Reactions Static Sitting Balance Ability Normal Dynamic Sitting Balance Ability Normal Standing Balance and Reactions Static Standing Balance Ability Good Dynamic Standing Balance Ability Fair Device Used good balance with FWW, fair with crutches M5 PT-IP Objective Assessments Start: 03/22/18 12:57 Freq: Status: Active Protocol: Document 03/25/18 10:00 MDD (Rec: 03/25/18 12:49 MDD [email or web address]) Orientation Orientation/Cognition Level of Alertness Alert Orientation Name Age Birthday Month Date Year Day of Week Place Situation Language Function Ability No Deficits Noted Safety Awareness Understands Safety Issues Memory Description No Deficits Noted Gross Range of Motion Lower Extremity ROM Assessment Within Functional Limits Strength Lower Extremity Strength Assessment Within Functional Limits Sensation Assessment Comments Sensation Comments continues to report some n/t in R LE with returning sensation to toes. M6 PT-IP Treatment Start: 03/22/18 12:57 Freq: Status: Active Protocol: Document 03/26/18 15:30 MDD (Rec: 03/26/18 15:46 MDD [id number]) Physical Therapy Treatment Education Education Provided Precautions Safety Other Treatments Other Treatment Performed SBA for supine to sit at EOB. CGA for ambulation w/ FWW 20 feet to and from commode. Improving with sequencing for safety with sit <> stand. Pt reports significant fatigue at end of session. M7 PT-IP Assessment and Plan Start: 03/22/18 12:57 Freq: Status: Active Protocol: Document 03/26/18 15:30 MDD (Rec: 03/26/18 15:46 MDD [id number]) PT Summary Assessment and Plan Potential Rehabilitation Potential Excellent Status of Condition at Evaluation Evolving Summary Impairments Pain Transfers Gait Activity Tolerance Progress Towards Goals Progressing Toward Goals Assessment Summary Pt continuing to demonstrate improvements in gait. FWW continues to be the most appropriate device. Goals Bed Mobility Goal Independent Transfer Goal Independent Gait Distance 50 feet with least resistive assistive device TBD. Other Goals Ascend/descend 12 steps with L hand railing while maintaining WB precautions. Days to Meet Goals 2 Frequency of Treatment Frequency Of Treatment Twice a Day Treatment Plan Physical Therapy Treatment Plan Transfer Training Gait Training Therapeutic Exercise Post Op Education Discharge Planning Other Recommendations and Next Treatment Continue with transfer and Focus gait training. Recommendations To Nursing Amount of Assist Needed 1 Person Assist Discharge Recommendations PT Discharge Recommendations SNF Rehab Other Discharge Recommendations Pt agreeable to rehab at [facility] d/c
--- NOTE | 2018-03-26 16:24 | OT.IP.TRT ---
Surgery Performed Operation Date: 03/24/18 13:30 Actual Procedures p External Fixation Fracture(Right) - Therese Ferris MD Occupational Therapy Treatment Note M3 OT- IP Subjective and Pain Start: 03/26/18 16:24 Freq: Status: Active Protocol: Document 03/26/18 16:24 [facility] (Rec: 03/26/18 16:24 [facility] [email or web address]) OT- Subjective Occupational Therapy Visit Type Type Patient Refusal Notes Pt too tired and just had pain medications and wanting to rest, therefore to see pt for OT eval tomorrow.
[2018-03-26] MEDS: MAGNESIUM HYDROXIDE 30 ML UDC PO (20:31)
[2018-03-27] VITALS (7 sets, daily range): BP systolic 104–122; BP diastolic 59–72; PULSE 74–90; RESP 13–16; TEMP 36.2–36.9; O2SAT 91–97
[2018-03-27] MEDS: LEVOTHYROXINE 25 MCG TABLET PO (06:02)
[2018-03-27] MEDS: HYDROMORPHONE 2 MG TABLET PO ×4 (06:40→21:31)
[2018-03-27] MEDS: diazePAM 5 MG TABLET PO ×4 (06:40→21:31)
--- NOTE | 2018-03-27 09:19 | P.PN_ITS ---
Subjective Date Patient Seen: 03/27/18 Time Patient Seen: 09:10 Interval history: Hospital day 6, postop day 3 status post placement of right external fixator for right ankle fracture by Dr. Ferris. Patient is nonweightbearing on the right lower leg. Pain is tolerable today with Dilaudid 2 mg. Complaining of constipation. Milk of magnesium and stool softeners have been ordered for patient. Patient also states she takes magnesium at home as needed for constipation. Plan is for the patient to be DC SNF, [facility] tomorrow for further therapy and rehab. Has a scheduled follow-up appointment with Dr. Ferris on 04/02/2018 and possible surgery on 04/03/2018. Exam Vital Signs (past 8 hours): - 03/27/18 02:14 03/27/18 06:10 Temperature 98.1 F 98.0 F Pulse Rate 74 77 Respiratory Rate 16 16 Blood Pressure 106/64 119/71 Pulse Oximetry 93 97 Fraction of Inspired Oxygen 21 Oxygen Delivery Method Room Air Oxygen Flow Rate 0 Narrative Exam Narrative: Patient in bed. Right lower extremity with external fixator on and elevated with pillows. Full sensation and movement and toes. Good capillary refill in toes. Patient appears comfortable. Alert and orient x3. Objective Labs Result Diagrams: 03/22/18 11:15 03/22/18 11:15 Assessment & Plan Post-op Postoperative Procedures Operation Date: 03/24/18 13:30 Actual Procedures Side Surgeon p External Fixation Fracture Right Therese Ferris MD Status post placement of external fixator for right ankle fracture. Postop day 3. Continue nonweightbearing on right lower extremity. Magnesium and suppository ordered for constipation. Continue Dilaudid as needed for pain. A continue Lovenox for DVT prophylaxis. Anticipate discharge to [facility] tomorrow. Follow up with Dr. Ferris on 04/02/2018. Will need a prescription for Dilaudid for pain at discharge. Dr. Ferris's plan: 1. (ok to rest frame on floor for balance)-- practice bed to chair/restroom with PT. 2. DC with 1) Lovenox x 14 days. 2) colace 100mg bid, 3) valium 5mg PO Q 6hrs prn spasms. 4) may take tylenol prn (no more than 3000mg in 24 hour period) 3. elevate extremity/ ice 4. Keep dressing c/d/i 5. Has follow up appt with Dr. Ferris 04/02/18---Plan will be to eval soft tissues in clinic on 04/02. If swelling down enough, likely will be, then plan 2nd surgery on 04/03. Will go ahead and schedule patient for this --but may need to adjust based on swelling. Time Spent With Patient less than 15 minutes Quality VTE Deep Vein Thrombosis/Pulmonary Embolism Present on Admission: No
--- NOTE | 2018-03-27 10:21 | PT.IPTN ---
Current Diagnoses Other fracture of right lower leg, initial encounter for closed fracture (03/25/18) Surgery Performed Operation Date: 03/24/18 13:30 Actual Procedures p External Fixation Fracture(Right) - Therese Ferris MD Physical Therapy Treatment Note M2 PT-IP Current Condition Start: 03/22/18 12:57 Freq: Status: Active Protocol: Document 03/25/18 11:59 MDD (Rec: 03/25/18 12:04 MDD [email or web address]) Physical Therapy Current Condition Current Condition Evaluation Date 03/23/18 Treatment Diagnosis R trimalleolar fx - impaired mobility Onset Date 03/21/18 Weight Bearing Status Weight Bearing Status Non-Weight Bearing M3 PT-IP Subjective Start: 03/22/18 12:57 Freq: Status: Active Protocol: Document 03/27/18 10:21 MDD (Rec: 03/27/18 12:00 MDD [id number]) Subjective Physical Therapy Visit Type Type Treatment Note Visit Start Time 10:03 Visit Stop Time 10:21 Total Visit Minutes 18 Number of MANAGER LANGUAGE Visits 0 Physical Therapy Visit Comments Patient Comments Pt initially refuses PT treatment at 9:24, but agreeable to short session at 10:00 after getting to commode with OT. Therapy Pain Assessment Pain When Pain Assessed At Rest Pain Present Pain Present Pain Reported Location Right Ankle Intensity 8 Scale Used Numeric (1 - 10) Description Aching Pressure Pulling M4 PT-IP Mobility and Gait Start: 03/22/18 12:57 Freq: Status: Active Protocol: Document 03/25/18 10:00 MDD (Rec: 03/25/18 12:49 MDD [email or web address]) PT-Bed Mobility Assessment Rolling Type of Rolling Bilateral Level of Assist Independent Supine to Sit Supine to Sit Independent Sit to Supine Sit to Supine Minimal Assistance Scooting Scooting to Edge of Bed Independent Scooting Up and Down in Bed Independent PT-Transfer Assessment Sit to and From Stand Sit to and from Stand Contact Guard Assistance Equipment Transfer Assistive Device Gait Belt Front Wheeled Walker Orthotic/Prosthetic Devices or Brace: No Transfers Transfer Destination Toilet Transfer Ability Level of Assist Contact Guard Assistance Comments Mobility Comments Able to perform sit to stand with CGA when using FWW, when using crutches requires min A. Gait Assessment Gait Distance (Feet) (feet) 20 Able to Maintain Weight Bearing Status No During Gait Assistive Devices Assistive Device Gait Belt Front Wheeled Walker Orthotic/Prosthetic Devices or Brace: No Comments Gait Comments unable to trial gait this am with crutches. Fatigued after 10 feet x 2 (to and from commode) hopping with FWW. PT-Balance Assessment Sitting Balance and Reactions Static Sitting Balance Ability Normal Dynamic Sitting Balance Ability Normal Standing Balance and Reactions Static Standing Balance Ability Good Dynamic Standing Balance Ability Fair Device Used good balance with FWW, fair with crutches M5 PT-IP Objective Assessments Start: 03/22/18 12:57 Freq: Status: Active Protocol: Document 03/25/18 10:00 MDD (Rec: 03/25/18 12:49 MDD [email or web address]) Orientation Orientation/Cognition Level of Alertness Alert Orientation Name Age Birthday Month Date Year Day of Week Place Situation Language Function Ability No Deficits Noted Safety Awareness Understands Safety Issues Memory Description No Deficits Noted Gross Range of Motion Lower Extremity ROM Assessment Within Functional Limits Strength Lower Extremity Strength Assessment Within Functional Limits Sensation Assessment Comments Sensation Comments continues to report some n/t in R LE with returning sensation to toes. M6 PT-IP Treatment Start: 03/22/18 12:57 Freq: Status: Active Protocol: Document 03/27/18 10:21 MDD (Rec: 03/27/18 12:00 [facility] [id number]) Physical Therapy Treatment Education Education Provided Precautions Weight Bearing Status Safety Other Treatments Other Treatment Performed Assist with commode to bed transfer with CGA and cues. Requires min A for moving LE back into bed and supporting weight of external fixation. Practice scooting up in bed. Review of LE exercises in supine including quad sets, glute sets, L heelsides, SLR and hip abduction. M7 PT-IP Assessment and Plan Start: 03/22/18 12:57 Freq: Status: Active Protocol: Document 03/27/18 10:21 MDD (Rec: 03/27/18 12:00 [facility] [id number]) PT Summary Assessment and Plan Potential Rehabilitation Potential Good Status of Condition at Evaluation Stable Summary Impairments Pain Bed Mobility Transfers Gait Activity Tolerance Progress Towards Goals Slow Progress due to Pain Assessment Summary Pt continues to be most limited by pain and decreased activity tolerance. Goals Bed Mobility Goal Independent Transfer Goal Independent Gait Distance 50 feet with least resistive assistive device TBD. Other Goals Ascend/descend 12 steps with L hand railing while maintaining WB precautions. Days to Meet Goals 2 Frequency of Treatment Frequency Of Treatment Twice a Day Treatment Plan Physical Therapy Treatment Plan Transfer Training Gait Training Therapeutic Exercise Post Op Education Discharge Planning Other Recommendations and Next Treatment Continue with transfer and Focus gait training. Recommendations To Nursing Amount of Assist Needed 1 Person Assist Discharge Recommendations PT Discharge Recommendations SNF Rehab Other Discharge Recommendations Pt agreeable to rehab at [facility] d/c
[2018-03-27] MEDS: DOCUSATE 100 MG CAPSULE PO ×2 (10:27→21:32)
[2018-03-27] MEDS: ENOXAPARIN 40 MG/0.4 ML SYRINGE SUBCUT (10:27)
[2018-03-27] MEDS: POLYETHYLENE GLYCOL 3350 17 GM POWD.PACK PO (10:28)
[2018-03-27] MEDS: SODIUM CHLORIDE 0.9% FLUSH 10 ML IV ×2 (10:29→21:32)
--- NOTE | 2018-03-27 10:53 | OT.IP.EVAL ---
Surgery Performed Operation Date: 03/24/18 13:30 Actual Procedures p External Fixation Fracture(Right) - Therese Ferris MD Occupational Therapy Inpatient Evaluation/Re-Eval M1 PT/OT-IP Prior Functional Status Start: 03/22/18 12:57 Freq: Status: Active Protocol: Document 03/25/18 11:59 MDD (Rec: 03/25/18 12:04 MDD [email or web address]) Medical Review Prior Functional Status Medical History Reviewed Yes Diet/Fluid Consistency Regular Communication no known deficits Mobility and Gait ind without AD Activities of Daily Living and IADL's reports no issues, is ind Social History Household Members none Living Arrangements House Number of Floors (Floors) Two Floors Number of Stairs To Enter/Railing? 3 steps with no railing to enter. 12 stairs with R hand railing to shower on second floor. Bedroom and 1/2 bath on 1st floor. Home Environment Standard Height Toilet Tub/Shower Employment Status User Acceptance Tester Employed Additional Social History Comment Pt lives alone. One son in town from [place], other son coming in [facility]. Someone will be home M1 PT/OT-IP Prior Functional Status Start: 03/26/18 16:24 Freq: NEEDED Status: Active Protocol: Document 03/27/18 10:37 [facility] (Rec: 03/27/18 10:52 [facility] [email or web address]) Medical Review Prior Functional Status Medical History Reviewed Yes Diet/Fluid Consistency Regular Communication no known deficits Mobility and Gait ind without AD Activities of Daily Living and IADL's reports no issues, is ind Social History Household Members none Living Arrangements House Number of Floors (Floors) Two Floors Number of Stairs To Enter/Railing? 3 steps with no railing to enter. 12 stairs with R hand railing to shower on second floor. Bedroom and 1/2 bath on 1st floor. Home Environment Standard Height Toilet Tub/Shower Employment Status User Acceptance Tester Employed Additional Social History Comment Pt lives alone. One son in [facility] [employer] from [place], other son coming in [facility]. Someone will be home M2 OT-IP Current Condition Start: 03/26/18 16:24 Freq: Status: Active Protocol: Document 03/27/18 10:37 [facility] (Rec: 03/27/18 10:52 [facility] [email or web address]) Occupational Therapy Current Condition Current Condition Evaluation Date 03/27/18 Treatment Diagnosis Right Trimalleolar FX Diagnosis Onset Date 03/21/18 Weight Bearing Status Weight Bearing Status Non-Weight Bearing M3 OT- IP Subjective and Pain Start: 03/26/18 16:24 Freq: Status: Active Protocol: Document 03/27/18 10:37 [facility] (Rec: 03/27/18 10:52 [facility] [email or web address]) OT- Subjective Occupational Therapy Visit Type Type Initial Evaluation Visit Start Time 09:45 Visit Stop Time 10:30 Total Visit Minutes 45 Notes Pt wanting to use BSC. OT Pain Assessment Pain When Pain Assessed During Mobility Pain Present Pain Present Pain Reported M4 OT- IP ADL's Start: 03/26/18 16:24 Freq: Status: Active Protocol: Document 03/27/18 10:37 [facility] (Rec: 03/27/18 10:52 [facility] [email or web address]) OT ADL-Grooming General Evaluation Grooming Ability Independent Areas Needing Assistance Retrieving/Set-up of Grooming Items Comments OT Grooming Comments Pt able to do from sitting up in bed. OT ADL-Oral Care General Eval Oral Care Ability Independent OT ADL-Dressing General Eval Lower Body Dressing Ability Total Assistance Areas Needing Assistance Underpants/Brief Comments OT Dressing Comments Total assist for brief especailly to get over external fixator on RLE. OT ADL-Toileting General Evaluation Toileting Ability Moderate Assistance Areas Needing Assistance Perform Perineal Hygiene Devices Toileting Assistive Devices Commode Comments OT Toileting Comments Assist for completeness for pericare needs. OT ADL-Bathing Comments OT Bathing Comments Not at this time, therefore sponge bath more appropriate. M6 OT- IP Functional Cognition Start: 03/26/18 16:24 Freq: Status: Active Protocol: Document 03/27/18 10:37 [facility] (Rec: 03/27/18 10:52 [facility] [email or web address]) Cognitive Factors Limiting Selfcare Function Cognitive Ability Level of Alertness Alert Patient Orientation Name Age Birthday Month Date Year Day of Week Place Situation Attention Span Ability Capable of Focused Attention Capable of Sustained Attention Ability to Follow Commands Able to Follow Multi-Step Commands Memory Description No Deficits Noted Safety Awareness No Deficits Noted OT- Vision and Hearing OT- Hearing Assessment OT- Hearing Assessment WFL M7 OT- IP Mobility and Balance Start: 03/26/18 16:24 Freq: Status: Active Protocol: Document 03/27/18 10:37 [facility] (Rec: 03/27/18 10:52 [facility] [email or web address]) OT- Bed Mobility Assessment Rolling Type of Rolling Roll to Right Level of Assistance Standby Assistance Supine to Sit Supine to Sit Assist Standby Assistance Sit to Supine Sit to Supine Assist Minimal Assistance Scooting Scooting to Edge of Bed Standby Assistance OT-Transfer Assessment Sit to and From Stand Sit to and from Stand Minimal Assistance Moderate Assistance Transfers Transfer Ability Minimal Assistance Technique Transfer Destination Bed Bedside Commode Transfer Technique Stand Step Pivot Devices Transfer Assistive Devices Gait Belt Front Wheeled Walker Comments Mobility Comments Pt needing assist to stand and assist for guidance during transfer. VC to push up from the bed or at least use one hand from the bed. OT- Balance Assessment Sitting Balance and Reactions Static Sitting Balance Ability Normal Dynamic Sitting Balance Ability Normal Standing Balance and Reactions Static Standing Balance Ability Fair Dynamic Standing Balance Ability Poor M8 OT- IP Objective Assessments Start: 03/26/18 16:24 Freq: Status: Active Protocol: Document 03/27/18 10:37 [facility] (Rec: 03/27/18 10:52 [facility] [email or web address]) OT Gross Range of Motion Upper Extremity Range of Motion Assessment Within Functional Limits OT Strength Upper Extremity Strength Assessment Within Functional Limits OT-Muscle Tone Assessment Muscle Tone WNL Yes Comments Muscle Tone Comments Pt independently doing BUE excercises that PT showed her. M9 OT- IP Assessment and Plan Start: 03/26/18 16:24 Freq: Status: Active Protocol: Document 03/27/18 10:37 [facility] (Rec: 03/27/18 10:52 [facility] [email or web address]) OT Summary Assessment and Plan Potential Rehabilitation Potential Excellent Analytic Complexity at Evaluation Low Summary OT Impairments Pain Strength Balance Functional Mobility Grooming Dressing Toileting Bathing Toilet Transfers Shower Transfers Progress Towards Goals Slow Progress due to Pain Slow Progress due to Activity Tolerance Assessment Summary Pt main barrier is steps at home, needing extensive assist for toileting/dressing/ and bathing needing and just doing transfers at this time. Pt looking to do skilled rehab at discharge. Goals Dressing Goal Moderate Assistance Toileting Goal Contact Guard Assistance Bathing Goal Moderate Assistance Toilet Transfer Goal Standby Assistance Shower Transfer Goal Moderate Assistance Patient/Caregiver Education Goal Demonstrate Energy Conservation and Pacing Caregiver Independent Assisting Patient Days to Meet Goals 7 Frequency of Treatment Frequency Of Treatment Once a Day Treatment Plan OT Treatment Plan ADL Training Functional Mobility Patient/Family Education Discharge Planning Other Treatment Recommendations and Next Increasing independence with Treatment Focus toileting needs to BSC, sit to stand safety and consistency. Discharge Recommendations OT Discharge Recommendations SNF Rehab Home Equipment Needs Hospital bed
--- NOTE | 2018-03-27 15:56 | PT.IPTN ---
Current Diagnoses Other fracture of right lower leg, initial encounter for closed fracture (03/25/18) Surgery Performed Operation Date: 03/24/18 13:30 Actual Procedures p External Fixation Fracture(Right) - Therese Ferris MD Physical Therapy Treatment Note M2 PT-IP Current Condition Start: 03/22/18 12:57 Freq: Status: Active Protocol: Document 03/25/18 11:59 MDD (Rec: 03/25/18 12:04 MDD [email or web address]) Physical Therapy Current Condition Current Condition Evaluation Date 03/23/18 Treatment Diagnosis R trimalleolar fx - impaired mobility Onset Date 03/21/18 Weight Bearing Status Weight Bearing Status Non-Weight Bearing M3 PT-IP Subjective Start: 03/22/18 12:57 Freq: Status: Active Protocol: Document 03/27/18 15:56 MDD (Rec: 03/27/18 16:06 MDD [id number]) Subjective Physical Therapy Visit Type Type Treatment Note Visit Start Time 15:44 Visit Stop Time 15:56 Total Visit Minutes 12 Number of ASSOCIATE PROFESSOR PHYSICIAN Visits 0 Physical Therapy Visit Comments Patient Comments Pt initially refuses second session of therapy today, but agreeable with discussion. Had just been up to the commode and had a bowel movement. Therapy Pain Assessment Pain When Pain Assessed At Rest Pain Present Pain Present Pain Reported Location Right Ankle Intensity 7 Scale Used Numeric (1 - 10) Description Aching Cramping Pulling M4 PT-IP Mobility and Gait Start: 03/22/18 12:57 Freq: Status: Active Protocol: Document 03/25/18 10:00 MDD (Rec: 03/25/18 12:49 MDD [email or web address]) PT-Bed Mobility Assessment Rolling Type of Rolling Bilateral Level of Assist Independent Supine to Sit Supine to Sit Independent Sit to Supine Sit to Supine Minimal Assistance Scooting Scooting to Edge of Bed Independent Scooting Up and Down in Bed Independent PT-Transfer Assessment Sit to and From Stand Sit to and from Stand Contact Guard Assistance Equipment Transfer Assistive Device Gait Belt Front Wheeled Walker Orthotic/Prosthetic Devices or Brace: No Transfers Transfer Destination Toilet Transfer Ability Level of Assist Contact Guard Assistance Comments Mobility Comments Able to perform sit to stand with CGA when using FWW, when using crutches requires min A. Gait Assessment Gait Distance (Feet) (feet) 20 Able to Maintain Weight Bearing Status No During Gait Assistive Devices Assistive Device Gait Belt Front Wheeled Walker Orthotic/Prosthetic Devices or Brace: No Comments Gait Comments unable to trial gait this am with crutches. Fatigued after 10 feet x 2 (to and from commode) hopping with FWW. PT-Balance Assessment Sitting Balance and Reactions Static Sitting Balance Ability Normal Dynamic Sitting Balance Ability Normal Standing Balance and Reactions Static Standing Balance Ability Good Dynamic Standing Balance Ability Fair Device Used good balance with FWW, fair with crutches M5 PT-IP Objective Assessments Start: 03/22/18 12:57 Freq: Status: Active Protocol: Document 03/25/18 10:00 MDD (Rec: 03/25/18 12:49 MDD [email or web address]) Orientation Orientation/Cognition Level of Alertness Alert Orientation Name Age Birthday Month Date Year Day of Week Place Situation Language Function Ability No Deficits Noted Safety Awareness Understands Safety Issues Memory Description No Deficits Noted Gross Range of Motion Lower Extremity ROM Assessment Within Functional Limits Strength Lower Extremity Strength Assessment Within Functional Limits Sensation Assessment Comments Sensation Comments continues to report some n/t in R LE with returning sensation to toes. M6 PT-IP Treatment Start: 03/22/18 12:57 Freq: Status: Active Protocol: Document 03/27/18 15:56 MDD (Rec: 03/27/18 16:06 [facility] [id number]) Physical Therapy Treatment Education Education Provided Precautions Weight Bearing Status Safety Other Treatments Other Treatment Performed Cues for pushing from bed for sit to stand transfer. Gait training with emphasis on proper pattern (ie forward propulsion of walker followed by hop with L LE. Pt ambulated 15 feet around her room w/ FWW and CGA before requesting to rest. M7 PT-IP Assessment and Plan Start: 03/22/18 12:57 Freq: Status: Active Protocol: Document 03/27/18 15:56 MDD (Rec: 03/27/18 16:06 [facility] [id number]) PT Summary Assessment and Plan Potential Rehabilitation Potential Good Status of Condition at Evaluation Stable Summary Impairments Pain ROM Gait Activity Tolerance Progress Towards Goals Progressing Toward Goals Assessment Summary Pt requires min A for bed mobility (support R LE) and CGA for gait with FWW. Continues to fatigue quickly. Goals Bed Mobility Goal Independent Transfer Goal Independent Gait Distance 50 feet with least resistive assistive device TBD. Other Goals Ascend/descend 12 steps with L hand railing while maintaining WB precautions. Days to Meet Goals 2 Frequency of Treatment Frequency Of Treatment Twice a Day Treatment Plan Physical Therapy Treatment Plan Transfer Training Gait Training Therapeutic Exercise Post Op Education Discharge Planning Other Recommendations and Next Treatment Continue with transfer and Focus gait training. Recommendations To Nursing Amount of Assist Needed 1 Person Assist Discharge Recommendations PT Discharge Recommendations SNF Rehab Other Discharge Recommendations Pt agreeable to rehab at [facility] d/c
[2018-03-27] MEDS: MAGNESIUM OXIDE 400 MG TABLET PO (21:32)
[2018-03-28 04:15] VITALS: BP 112/72; PULSE 80; RESP 16; TEMP 36.2; O2SAT 94
[2018-03-28] MEDS: LEVOTHYROXINE 25 MCG TABLET PO (06:09)
[2018-03-28] MEDS: diazePAM 5 MG TABLET PO ×2 (07:47→12:52)
[2018-03-28] MEDS: HYDROMORPHONE 2 MG TABLET PO ×2 (07:47→12:51)
[2018-03-28 08:24] VITALS: BP 104/71; PULSE 77; RESP 16; TEMP 37.4; O2SAT 96
--- NOTE | 2018-03-28 08:49 | PM.DS.1 ---
History of Present Illness Date Patient Seen: 03/28/18 Time Patient Seen: 07:49 Chief complaint: TWISTED RIGHT ANKLE Narrative: The patient is a 72-year-old female that sustained a closed right trimalleolar ankle fracture with a large posterior malleolus, posterior pilon on variant with posterior subluxation of the tibiotalar joint. She was initially evaluated by the orthopedic surgeon simulation educator over the weekend and had a closed reduction with minimal improvement she has been referred to me for definitive treatment. She has been diagnosed with an unstable ankle fracture and indicated for surgery to restore joint congruity, minimize the risks of posttraumatic arthritis and restore function. The patient was indicated for open reduction internal fixation versus placement of spanning external fixator depending on soft tissue integrity. The risks and benefits of the procedure have been discussed with the patient even opportunity to ask questions. The risks of surgery include but are not limited to infection, malunion, nonunion, persistence of pain, damage to nerves and blood vessels, posttraumatic arthritis, DVT, PE, cardiopulmonary complications and . Specifically a single stage versus staged protocol with external fixation, staged removal of external fixation and internal fixation were discussed with the patient thoroughly. The patient expressed a thorough understanding of the risks and benefits of surgery and has elected to proceed. Consent was signed on the hospital [facility]. Discharge Providers Date of admission: 03/25/18 15:40 Primary care physician: Savanah Johnson DO Consults: 03/21/18 16:54 Consult to Orthopedic Surgery Routine Comment: Consulting Provider: Prieto Franco Reason for consultation: Admission Has provider been notified: Yes 03/21/18 16:55 Consult to [employer] Stat Comment: Right distal tibia fracture 03/22/18 10:43 Consult to Physical Therapy Evaluate & Treat Comment: crutches training Physician Instructions: Evaluate and Treat 03/24/18 18:08 Consult to Discharge Planning Routine Comment: should plan dc home POD 1 --NWB RLE Consult to Physical Therapy Evaluate & Treat Comment: NWB RLE Physician Instructions: Evaluate and Treat Consult to Respiratory Therapy Evaluate & Treat Comment: Physician Instructions: Evaluate and treat 03/26/18 08:43 Consult to Occupational Therapy Evaluate & Treat Comment: Physician Instructions: Evaluate and treat Discharge provider: Helen Luis PA-C Summary Discharge Diagnosis: s/p orif ankle hypothyroidism hyperlipidemia mixed stress and urge urinary incontinence prediabetes Hospital Course: Krystal consented to ORIF with Dr. Ferris. Hospital course was remarkable for slow ambulation and recovery. She is nonweightbearing on the right. On postop day 4. She was ready for discharge to [facility]. Calves were soft, compressible, nontender bilaterally. She is able to actively wiggle her toes and sensation was intact to light touch. PLAN 1. (ok to rest frame on floor for balance)-- practice bed to chair/restroom with PT. 2. DC with 1) Lovenox x 14 days. 2) oxycodone 5-10 mg q4 hrs prn pain, 3) colace 100mg bid, 4) valium 5mg PO Q 6hrs prn spasms. -5) may take tylenol prn (no more than 3000mg in 24 hour period) 3. elevate extremity/ ice 4. Keep dressing c/d/i 5. Has follow up appt with Dr. Ferris 04/02/18---Plan will be to eval soft tissues in clinic on 04/02. If swelling down enough, likely will be, then plan 2nd surgery on 04/03. Will go ahead and schedule patient for this --but may need to adjust based on swelling. PLand discussed with patient in detail. Status at Discharge Functional status at discharge: uses cane/walker Exam Vital Signs (past 8 hours): - 03/28/18 04:15 03/28/18 08:24 Temperature 97.2 F L 99.3 F Pulse Rate 80 77 Respiratory Rate 16 16 Blood Pressure 112/72 104/71 Pulse Oximetry 94 96 Fraction of Inspired Oxygen 21 Oxygen Delivery Method Room Air Oxygen Flow Rate 0 Narrative Exam Narrative: Patient lying in bed in no acute distress. She is alert and oriented x3. Splint in place with external fixators, and is well fitting. Her pain is well controlled. She is taking Lovenox for DVT prophylaxis. Denies any chest pain, nausea, vomiting, or shortness of breath. Objective Labs Result Diagrams: 03/22/18 11:15 03/22/18 11:15 Discharge Plan Discharge Plan Patient Disposition: SNF Transfer to: [facility] Under care of provider: Facility Transportation: Private vehicle Consult as needed: Dental, Hearing, Mental health, Podiatry and Vision Discharge comment: DC for continued rehab after ankle fracture I certify the postop hospital fpc care is medically necessary on a continuing basis for any conditions for which he/ she received care during this hospitalization.: Yes The receiving facility has agreed to accept transfer and provide medical treatment.: Yes Discharge Health Status Brief summary of current health status: Patient will need further rehab following ankle ORIF, will be nonweightbearing on the right important elevate right lower extremity. Provider Discharge Instructions Diet: Regular Liquid consistency: Normal/Thin Activity: NWB to RLE in splint Strict ice and elevate continuously once home Cold/Heat Therapy: Ice to affected area every hour except when sleeping Wound Care Report to your healthcare provider any signs of infection, such as:: chills, fever, night sweats, increased pain and unusual drainage Dressing: Please leave splint in place [facility] Reason for rehabilitation: Post-operative therapy Rehab type: Physical therapy and Occupational therapy Discharge Data Primary Care Provider: Savanah Johnson Attending Provider: Prieto Franco Admit Date/Time: 03/25/18 15:40 Quality VTE Deep Vein Thrombosis/Pulmonary Embolism Present on Admission: No
[2018-03-28] MEDS: ENOXAPARIN 40 MG/0.4 ML SYRINGE SUBCUT (08:54)
[2018-03-28] MEDS: DOCUSATE 100 MG CAPSULE PO (08:54)
[2018-03-28] MEDS: SODIUM CHLORIDE 0.9% FLUSH 10 ML IV (08:55)
--- NOTE | 2018-03-28 10:55 | PT.IPTN ---
Current Diagnoses Other fracture of right lower leg, initial encounter for closed fracture (03/25/18) Surgery Performed Operation Date: 03/24/18 13:30 Actual Procedures p External Fixation Fracture(Right) - Therese Ferris MD Physical Therapy Treatment Note M2 PT-IP Current Condition Start: 03/22/18 12:57 Freq: Status: Active Protocol: Document 03/25/18 11:59 MDD (Rec: 03/25/18 12:04 MDD [id number]) Physical Therapy Current Condition Current Condition Evaluation Date 03/23/18 Treatment Diagnosis R trimalleolar fx - impaired mobility Onset Date 03/21/18 Weight Bearing Status Weight Bearing Status Non-Weight Bearing M3 PT-IP Subjective Start: 03/22/18 12:57 Freq: Status: Active Protocol: Document 03/28/18 10:55 RCC (Rec: 03/28/18 12:22 RCC [id number]) Subjective Physical Therapy Visit Type Type Patient Refusal Physical Therapy Visit Comments Patient Comments Pt reports she was just up, not wanting to get OOB for activity at this time. M7 PT-IP Assessment and Plan Start: 03/22/18 12:57 Freq: Status: Active Protocol: Document 03/27/18 15:56 MDD (Rec: 03/27/18 16:06 MDD [id number]) PT Summary Assessment and Plan Potential Rehabilitation Potential Good Status of Condition at Evaluation Stable Summary Impairments Pain ROM Gait Activity Tolerance Progress Towards Goals Progressing Toward Goals Assessment Summary Pt requires min A for bed mobility (support R LE) and CGA for gait with FWW. Continues to fatigue quickly. Goals Bed Mobility Goal Independent Transfer Goal Independent Gait Distance 50 feet with least resistive assistive device TBD. Other Goals Ascend/descend 12 steps with L hand railing while maintaining WB precautions. Days to Meet Goals 2 Frequency of Treatment Frequency Of Treatment Twice a Day Treatment Plan Physical Therapy Treatment Plan Transfer Training Gait Training Therapeutic Exercise Post Op Education Discharge Planning Other Recommendations and Next Treatment Continue with transfer and Focus gait training. Recommendations To Nursing Amount of Assist Needed 1 Person Assist Discharge Recommendations PT Discharge Recommendations SNF Rehab Other Discharge Recommendations Pt agreeable to rehab at [facility] d/c
--- NOTE | 2018-03-28 13:47 | CM.DPC ---
DC Note: Coordinated final details of pt's DC to [facility] today; pt aware and agreeable. Dotty collins/[facility] assisted in arranging w/c p/u for 1430. Will fax the completed and signed med list once Dr Swanson updates one medication error (Per RN Anastasiya). PASSR faxed. JW Discharge Planning/Care Management CM Discharge Assessment Start: 03/22/18 10:04 Freq: Status: Active Protocol: Document 03/22/18 10:04 BF (Rec: 03/22/18 10:10 BF [id number]) Discharge Planning Assessment Assigned Insurance Office Supervisor [employer] History Provided By Patient Friend Has Patient been admitted in last 30 No days? Is this patient on Medicare? Yes Is the admit diagnosis the same? No Comment fracture Prior Living Arrangements House Household Members none Type of transporation used prior to Drives own vehicle admit Independent with ADL's Yes Is patient alert and oriented? Yes Caregiver for Another No Comment I at baseline and no other supportive services at baseline. Referrals Initiated None needed Comment Pt has very supportive 2 neighbor/friends bedside who can assist at d/c Discharge Plan Home Transportation Arrangement Friends can provide transport Additional Comment Son flying in today and will stay with pt tonight. 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 Is this patient on Medicare? Yes Is the admit diagnosis the same? No Comment fracture Prior Living Arrangements House Household Members none Type of transporation used prior to Drives own vehicle admit Independent with ADL's Yes Is patient alert and oriented? Yes Caregiver for Another No Comment I at baseline and no other supportive services at baseline. Referrals Initiated None needed Comment Pt has very supportive 2 neighbor/friends bedside who can assist at d/c Discharge Plan Home Transportation Arrangement Friends can provide transport Additional Comment Son flying in today and will stay with pt tonight. Review Status In Process Next Review Type Discharge Review 03/23/18 16:20 CM Disc. Plan Continued by Janine France DCP/continued: Reviewed chart. Per previous DCP notes current d/c plan is for patient to d/c home with support from her son/Blas whom is currently visiting. Received verbal notification from therapy this AM that SNF recommended because patient requiring much assistance with ADL's. Per staff patient anticipated to have right ankle fx repair tomorrow 7-17? [employer] met with patient explained CM/SW role. At time of visit patient moaning in pain with any movement to her right leg. Patient confirms that she thought initially that she would be able to d/c home today but now feels that until her pain is controlled or surgery performed she does not feel comfortable leaving. Updated patient's white board in room. Left VM with CARMELO/Michael re: the above. Patient does not have insurance benefit to go to SNF prior to surgery. Patient reports that she does not feel like her pain is controlled and plans on surgery tomorrow. Patient not in agreement to pay privately for SNF until surgery. RN updated. P: Pending. Possible home with supportive family when pain controlled or after surgery. Patient may benefit from pending disposition. JAYASHREE Mcclelland Initialized on 03/23/18 16:20 - END OF NOTE
--- NOTE | 2018-03-28 15:16 | PC.NURSE ---
discharge pt states she took all belongings with her. report called to [facility]. pain controlled with PO dilaudid and valium. d/c instructions provided in packet to [facility] staff member during transport.
== END 2018-03-28 14:40 | DRG 494 ==
LOC: ED 16:54 → AC 17:15
PROVIDERS: Orthopaedic Surgery Foot and Ankle Surgery; Admitting Provider Orthopaedic Surgery Orthopaedic Surgery of the Spine; Emergency Provider Emergency Medicine; Family Provider Family Medicine; PCP Family Medicine; Visit Provider Orthopaedic Surgery Orthopaedic Surgery of the Spine
PROC: 0QSJ34Z Reposition Right Fibula with Internal Fixation Device, Percutaneous Approach (ICD-10-PCS; principal; 2018-03-24 13:30)
DX: S82.851A Displaced trimalleolar fracture of right lower leg, initial encounter for closed fracture (principal); W01.0XXA Fall on same level from slipping, tripping and stumbling without subsequent striking against object, initial encounter; Y92.007 Garden or yard of unspecified non-institutional (private) residence as the place of occurrence of the external cause; E03.9 Hypothyroidism, unspecified; E78.5 Hyperlipidemia, unspecified
CPT/HCPCS: 29515; 29705; 36415; 64450; 73590; 73610; 73700; 76000; 80048; 85027; 93005; 94760; 96372; 96374; 96375; 97110; 97116; 97162; 97164; 97165; 97530; 97535; 99285; G0378; J0690; J1100; J1170; J1650; J2175; J2250; J2270; J2405; J2704; J2795; J3010

== ENCOUNTER 2018-04-03 12:01 | Day surgery (SDC) | payer MEDICARE, OTHER, SELFPAY ==
[2018-03-21 17:54] VITALS: BMI 27.7
[2018-03-31 13:41] VITALS: BMI 27.7
[2018-04-03] VITALS (13 sets, daily range): BP systolic 95–117; BP diastolic 49–74; PULSE 69–82; RESP 10–16; TEMP 36.2–37.6; O2SAT 92–97; BMI 27.7
--- NOTE | 2018-04-03 | DI.RAD.S_ITS ---
PROCEDURE: XR ANKLE RT MIN 3V INDICATIONS: FX REPAIR OPEN TECHNIQUE: 2 views of the ankle were acquired. COMPARISON: [facility], CR, XR TIBIA FIBULA RT 2V, 03/24/2018, 17:19. [facility], CR, XR TIBIA FIBULA RT 2V, 03/24/2018, 15:03. [facility], CR, XR ANKLE RT MIN 3V, 03/21/2018, 15:59. FINDINGS: Bones: Intraoperative images demonstrate ORIF of triplane ankle fracture dislocatio.. There is anatomic alignment of the fracture fragments following placement of orthopedic fixation hardware. Soft tissues: No tibiotalar joint effusion. Achilles tendon appears normal. IMPRESSION: Expected postsurgical change for ORIF of ankle fracture-dislocation. Dictated by: Celina Hutchinson MD, PhD on 04/03/2018 at 20:12 Approved by: Celina Hutchinson MD, PhD on 04/03/2018 at 20:14
--- NOTE | 2018-04-03 11:39 | PM.PROC.1 ---
Procedures Date/Time Date of procedure: 04/03/18 Time of procedure: 10:00 General Procedure description: Ultrasound guided popliteal sciatic nerve block for post op pain control after Right big toe surgery by Dr. Ferris. Risk and benefits of procedure discussed with patient. ASA monitoring applied to patient. Oxygen given via nasal cannula. 2 mg Versed and 100 mcg fentanyl given for procedural sedation. Skin site was prepped with chlorhexidine and allowed to fully dry. Sterile gloves, mask, hat and probe cover were used to maintain sterility. 2% lidocaine and 30ga needle was used to make a small skin wheal at needle insertion site. Under ultrasound guidance, a 21ga 100mm Pajunk needle was directed near the division of the sciatic nerve into tibial and peroneal nerve in the popliteal fossa (lateral approach). Patient reported no parasthesias. After negative aspiration, 20 mL 0.5% ropivicaine and 10mg dexamethasone were injected around sciatic nerve. Patient tolerated procedure well.
[2018-04-03] MEDS: LACTATED RINGERS 1,000 ML 42 ML IV ×2 (13:38→17:05)
--- NOTE | 2018-04-03 13:54 | PM.PREOP ---
Pre-operative Note Interval Note Pre-op Check: Yes History & Physical Reviewed by Physician and Yes Exam Performed Changes: No
--- NOTE | 2018-04-03 14:12 | SUR.PREOP ---
Addendum entered by Melinda Lake R.N. 04/03/18 14:36: Original Note: Block start time [1419] . Monitoring initiated and maintained throughout procedure. Oxygen and medications given per anesthesiologist instructions. Patient remained stable throughout procedure, no adverse reactions noted. Block end time [1429].
[2018-04-03] MEDS: CEFAZOLIN 2 GM/100 ML FROZ.PIGGY IV ×2 (14:55→19:11)
--- NOTE | 2018-04-03 14:55 | PM.PROC.1 ---
Procedures Date/Time Date of procedure: 04/03/18 Time of procedure: 14:20 General Procedure description: Ultrasound guided sciatic and adductor canal nerve block for post op pain control after right ankle ORIF by Dr. Ferris. Risk and benefits of procedure discussed with patient. ASA monitoring applied to patient. O2 given via nasal cannula. 2 mg Versed and 50 mcg fentanyl given for procedural sedation. For Adductor canal block, skin site was prepped with chlorhexidine and allowed to fully dry. Sterile gloves, mask, hat and probe cover were used to maintain sterility. 2% lidocaine and 30ga needle was used to make a small skin wheal at needle insertion site. Under ultrasound guidance, a 21ga 100mm Pajunk needle was directed into the adductor canal near femoral artery and saphenous nerve at the level of mid thigh. Patient reported no parasthesias. After negative aspiration, 10 mL 0.5% ropivicaine and 3 mg dexamethasone were injected around saphenous nerve. For Sciatic nerve block, skin was prepped with chlorhexidine and allowed to fully dry. Using 100mm 21ga Pajunk needle under US guidance, needle tip was guided to the division of the sciatic nerve into tibial and peroneal components in the popliteal fossa. After negative aspiration, 20mL 0.5% ropivicaine and 7mg dexamethasone were injected without parasthesias. Patient tolerated the procedure well.
--- NOTE | 2018-04-03 15:43 | SUR.OPER ---
Prone on padded OR bed, head in foam head support, gel chest rolls, folded blankets under legs, arms secured on padded arm boards at <90 degrees abduction. Safety belt at back.
[2018-04-03] MEDS: THROMBIN (BOVINE) 5,000 UNIT VIAL 5000 UNIT TOP (17:44)
[2018-04-03] MEDS: BUPIVACAINE 0.25% (PF) VIAL 30 ML INJ (19:30)
--- NOTE | 2018-04-03 20:33 | PM.OP.1 ---
Operative Date/Time/Diagnoses Date of procedure: 04/03/18 Time of procedure: 20:34 Pre-op diagnosis: 1. Closed trimalleolar ankle fracture, right S82.851A 2. Posterior pilon fracture right ankle, displaced S82.871 Post-op diagnosis: same Procedure & Clinicians Procedure: 1. Open reduction internal fixation right pilon fracture distal tibia and fibula cpt 99744 2. ORIF medial malleolus right cpt 52290-45 3. Staged removal external fixator device, right ankle CPT 05277--72 4. mircofracture talus acute traumatic cartilage defect cpt 79072-02 Modifier #22 for complexity of the case requiring a fellowship trained foot and ankle surgeon, prone positioning, requiring staged removal of external fixator requiring, intraoperative repositioning to supine positioning for anterior fixation. Modifier #58 for staged procedure, removal of exfx and definitive ORIF Same procedure as scheduled: Yes Indications: The patient is a 72-year-old female that sustained a right closed trimalleolar ankle fracture with a posterior pilon variant encompassing approximately 50% of the joint. This was initially displaced and subluxed posteriorly. She was unable to be reduced and maintained in a closed fashion and was therefore placed an external fixator device due to her instability and her soft tissue swelling that was not amenable to definitive fixation at that time. Patient was then discharged from the hospital to a intermediate facility and has been nonweightbearing allowing her soft tissues to improve. She presents today for staged definitive fixation and removal of the external fixator. Risks benefits and alternatives to the procedure were discussed with the patient in detail including but not limited to infection, nonunion, malunion, symptomatic hardware, posttraumatic arthritis, need for additional surgeries, damage to nerves and vessels, DVT, PE, cardiopulmonary complications associated with general anesthesia, . The patient expressed her understanding and elected to proceed with surgery. Consent was signed in the hospital. Patient has been on Lovenox injections for DVT prophylaxis, and takes calcium and vitamin D for bone health. Surgeon: Therese Ferris Revenue Stamp Clerk: Sejal Mayers Anesthesia Type: General, Peripheral nerve block and Local Operative Notes Findings: Posterior pilon/malleolus fragment encompassing 50% of the joint extending lateral to medial was stabilized with 2 independent 4-0 cannulated lag screws and washers and a 1/3 tubular plate nonlocking plate from the [employer] small frag was used in antiglide fashion. Oblique distal fibula fracture was reduced utilizing a 2.7 interfragmentary lag screw and a 7 hole 1/3 locking tubular plate from the [place] [employer] set with a cancellous and a locking screw distally and bicortical nonlocking screws proximally. The medial malleolus was displaced rotated and highly comminuted there was noted comminution at the medial shoulder of the distal tibia as well as an impaction injury visualized at the anterior talus. This articular lesion was micro fractured using the K-wire and drill. Medial malleolus was reduced and held with 2 4-0 cannulated screws from the [place] [employer] set. Closure Type: primary Specimen(s): none sent Implants & Drains: [place] [employer] stas lock VLP--7 hole 1/3 tubular locking plate and screws. 4-0 cannulated screws and washers [employer] small fra hole 1/3 tubular plate nonlocking Applied: implant(s) Estimated Blood Loss (mL): 50 Blood products transfused: none Tourniquet time (min): 120 Procedure in detail: The patient was seen in the preoperative area the site and side of surgery and consent were confirmed. Final questions were answered. The patient was then taken to the block room and had a preoperative block placed by the anesthesia team to help with intraop and postop pain control. Patient was then brought to the operating room. General anesthesia was administered while still on the stretcher. A formal time-out procedure was performed confirming the patient's side and site of surgery and administration preoperative antibiotics and presence of informed consent. The patient's leg was then prepped with Betadine. External fixator was then removed except for the calcaneal pin which was prepped left to use for traction during the case. Patient was then positioned prone on the operative table with all bony prominences padded. A well-padded thigh tourniquet was placed. SCD was placed on the contralateral leg. The operative extremity was prepped and draped in the standard sterile fashion. Repeat time-out procedure was performed and all were in agreement. An Esmarch bandage was used for exsanguination and the tourniquet was elevated to 300 mm mercury and stayed there for 120 min. Attention was turned to the right lower extremity. The soft tissues had resolved sufficiently for the surgery and wrinkles were present. The posterior lateral approach incision was marked out on the leg assisted between the Achilles and the fibula. This was taken down through the skin and subcutaneous tissues. The sural nerve was kept with the flap medial. The deep fascia was incised and the FHL tendon was mobilized off the fibula and retracted medially throughout the case to protect the neurovascular bundle. The posterior malleolus/tibial plafond fracture was exposed. This is a very large triangular fragment encompassing approximately 50% of the joint line, and coming to a sharp spike at the distal metaphysis. It took quite some effort to mobilize this fragment and get it back out to length and reduced. This was attempted several times from the lateral approach as however it was still not moving well enough to fully reduce therefore the decision was made to do a dual a posterior lateral and posterior medial approach. The posterior medial approach was then drawn out on the leg just posterior to the distal tibia and medial malleolus was taken down through the skin and subcutaneous tissues. Fascia over the posterior tibialis was incised and the FDL and the neurovascular bundle was retracted laterally while the posterior tibialis tendon was reflected anteriorly. This exposed the medial aspect of the pilon fracture a curette and blade were used to mobilize the medial portion of the fracture and this allowed reduction of the fragment and anatomic reduction of the joint line. The fracture was reduced and pinned. Intraoperative fluoroscopy confirmed reduction then 2 independent 4 0 cannulated lag screws and washers were placed posterior to anterior confirmed on intraoperative imaging to be clear of the joint into provide excellent reduction of the posterior pilon fracture. Next given the large size of the fragment a 4 hole 1/3 tubular plate was placed in a antiglide fashion to secure the proximal aspect of the fragment. Next attention was turned to fixation of fibula fracture. The same posterior lateral approach was used. The peroneal tendons were retracted medially exposing the posterior lateral aspect of the the fibula. There was a long oblique fracture of the fibula from proximal posterior to anterior and distal. Additionally there was a small posterior butterfly fragment that was displaced but had some soft tissue attachments. The fracture was pulled out to length and reduced with a pointed reduction clamp and then held with a K-wire. A 2.7 inter frag lag screw was placed. A 7 hole 1/3 tubular locking plate from the [place] [employer] set was selected was placed in a posterior lateral position with angulation more lateral distally to be able to reach more distal but avoid the groove for the peroneal tendons. This was secured with cortical screws proximally and a cancellous screw distally and a locking screw distally. Intraoperative fluoroscopy was inspected the initial lag screw was noted to be too long was exchanged for shorter 2.7 lag screw. We were very pleased with this reduction. The tourniquet was released after 120 min and hemostasis was achieved. Thrombin and Gelfoam were utilized. Next attention was turned to fixation of medial malleolus fracture. This was attempted to be done from the posterior medial approach with flexing the knee up and working in an upside-down fashion. This was attempted several times but the fragment was noted to be highly comminuted and rotated and it was very difficult to appreciate the anterior part of the joint from this position therefore the decision was made to close the posterior lateral incision packed the medial incision and flipped the patient into a supine position. Lateral wound was irrigated thoroughly and closed in a layered fashion with 2 O Vicryl deep 4 0 Monocryl and 3 O nylon. Patient was then re-prepped and draped in the supine position. Again all bony prominences were well padded. The thigh tourniquet was placed but was not elevated. Again a brief time-out that the same procedure was continuing was confirmed. Antibiotics were redosed as appropriate. Attention was turned to the medial malleolus. The same posterior medial incision was extended slightly anterior index section was carried around the anterior medial malleolus to expose the anterior joint line. This did allow us to get an excellent look at the joint surface of the talus. Notably we were able to observe impaction injury in the anterior central talus a presumably from the fracture dislocation event. This left a small but full-thickness cartilage lesion in this area. A 062 K wire was used to microfracture full-thickness lesion and a small loose fragments were removed the joint was thoroughly irrigated. Additionally at the posterior medial shoulder of the distal tibia with the medial malleolus fracture began there was an area of cartilage loss and impaction. Even with the medial malleolus anatomically reduced there is a small area just medial to this of missing cartilage and bone. The medial malleolus was reduced under direct visualization and held with 2 K-wires. Intraoperative fluoroscopy was used to confirm reduction then 2 4-0 cannulated screws were placed over the K-wires. Final fluoroscopic images were obtained confirming anatomic reduction of the complex ankle/pilon fracture. Wounds were thoroughly irrigated with sterile saline and closed in a layered fashion with care taken to make sure that the posterior tibialis tendon was reduced within its groove and the fascial layers were appropriately closed. This was completed with 2 O Vicryl suture. 2-0 Vicryl suture and 4-0 Monocryl were also used subcutaneously followed by 3-0 nylon suture in the skin. Sterile dressings were applied with Xeroform gauze sterile gauze Webril. Ex fix pin sites were also curetted and dressed with sterile dressings. A well-padded bulky splint was placed with a posterior slab and U slab. The patient was awakened from anesthesia and taken to the PACU in good condition. There were no immediate complications from this procedure all counts were correct. Complications: none Condition: stable Disposition: PACU Plan for aftercare: Patient will be nonweightbearing on the right lower extremity. She will keep this elevated for at least 2 weeks after surgery. She will follow up in the clinic for evaluation. She will anticipate 6 weeks of nonweightbearing followed by partial weight-bearing. She will be maintained on Xarelto for DVT prophylaxis started postop day 1 for minimum of 2 weeks with possible transition to aspirin if she is able to stay off her hormone replacement otherwise will continue DVT prophylaxis with Xarelto or equivalent Lovenox.
--- NOTE | 2018-04-03 20:52 | P.OP_ITS ---
Operative Date/Time/Diagnoses Date of procedure: 04/03/18 Time of procedure: 20:34 Pre-op diagnosis: 1. Closed trimalleolar ankle fracture, right S82.851A 2. Posterior pilon fracture right ankle, displaced S82.871 Post-op diagnosis: same Procedure & Clinicians Procedure: 1. Open reduction internal fixation right pilon fracture distal tibia and fibula cpt 61089 2. ORIF medial malleolus right cpt 77586-01 3. Staged removal external fixator device, right ankle CPT 63652--29 4. mircofracture talus acute traumatic cartilage defect cpt 73729-51 Modifier #22 for complexity of the case requiring a fellowship trained foot and ankle surgeon, prone positioning, requiring staged removal of external fixator requiring, intraoperative repositioning to supine positioning for anterior fixation. Modifier #58 for staged procedure, removal of exfx and definitive ORIF Same procedure as scheduled: Yes Indications: The patient is a 72-year-old female that sustained a right closed trimalleolar ankle fracture with a posterior pilon variant encompassing approximately 50% of the joint. This was initially displaced and subluxed posteriorly. She was unable to be reduced and maintained in a closed fashion and was therefore placed an external fixator device due to her instability and her soft tissue swelling that was not amenable to definitive fixation at that time. Patient was then [facility] the [facility] and has been nonweightbearing allowing her soft tissues to improve. She presents today for staged definitive fixation and removal of the external fixator. Risks benefits and alternatives to the procedure were discussed with the patient in detail including but not limited to infection, nonunion, malunion , symptomatic hardware, posttraumatic arthritis, need for additional surgeries, damage to nerves and vessels, DVT, PE, cardiopulmonary complications associated with general anesthesia, . The patient expressed her understanding and elected to proceed with surgery. Consent was signed in the hospital. Patient has been on Lovenox injections for DVT prophylaxis, and takes calcium and vitamin D for bone health. Surgeon: Therese Ferris Train Control Electronic Technician: Sejal Mayers Anesthesia Type: General, Peripheral nerve block and Local Operative Notes Findings: Posterior pilon/malleolus fragment encompassing 50% of the joint extending lateral to medial was stabilized with 2 independent 4-0 cannulated lag screws and washers and a 1/3 tubular plate nonlocking plate from the [employer] small frag was used in antiglide fashion. Oblique distal fibula fracture was reduced utilizing a 2.7 interfragmentary lag screw and a 7 hole 1/3 locking tubular plate from the [place] [employer] set with a cancellous and a locking screw distally and bicortical nonlocking screws proximally. The medial malleolus was displaced rotated and highly comminuted there was noted comminution at the medial shoulder of the distal tibia as well as an impaction injury visualized at the anterior talus. This articular lesion was micro fractured using the K-wire and drill. Medial malleolus was reduced and held with 2 4-0 cannulated screws from the [place] [employer] set. Closure Type: primary Specimen(s): none sent Implants & Drains: [place] [employer] stas lock VLP--7 hole 1/3 tubular locking plate and screws. 4-0 cannulated screws and washers [employer] small fra hole 1/3 tubular plate nonlocking Applied: implant(s) Estimated Blood Loss (mL): 50 Blood products transfused: none Tourniquet time (min): 120 Procedure in detail: The patient was seen in the preoperative area the site and side of surgery and consent were confirmed. Final questions were answered. The patient was then taken to the block room and had a preoperative block placed by the anesthesia team to help with intraop and postop pain control. Patient was then brought to the operating room. General anesthesia was administered while still on the stretcher. A formal time -out procedure was performed confirming the patient's side and site of surgery and administration preoperative antibiotics and presence of informed consent. The patient's leg was then prepped with Betadine. External fixator was then removed except for the calcaneal pin which was prepped left to use for traction during the case. Patient was then positioned prone on the operative table with all bony prominences padded. A well-padded thigh tourniquet was placed. SCD was placed on the contralateral leg. The operative extremity was prepped and draped in the standard sterile fashion. Repeat time-out procedure was performed and all were in agreement. An Esmarch bandage was used for exsanguination and the tourniquet was elevated to 300 mm mercury and stayed there for 120 min. Attention was turned to the right lower extremity. The soft tissues had resolved sufficiently for the surgery and wrinkles were present. The posterior lateral approach incision was marked out on the leg usp between the Achilles and the fibula. This was taken down through the skin and subcutaneous tissues. The sural nerve was kept with the flap medial. The deep fascia was incised and the FHL tendon was mobilized off the fibula and retracted medially throughout the case to protect the neurovascular bundle. The posterior malleolus/tibial plafond fracture was exposed. This is a very large triangular fragment encompassing approximately 50 % of the joint line, and coming to a sharp spike at the distal metaphysis. It took quite some effort to mobilize this fragment and get it back out to length and reduced. This was attempted several times from the lateral approach as however it was still not moving well enough to fully reduce therefore the decision was made to do a dual a posterior lateral and posterior medial approach. The posterior medial approach was then drawn out on the leg just posterior to the distal tibia and medial malleolus was taken down through the skin and subcutaneous tissues. Fascia over the posterior tibialis was incised and the FDL and the neurovascular bundle was retracted laterally while the posterior tibialis tendon was reflected anteriorly. This exposed the medial aspect of the pilon fracture a curette and blade were used to mobilize the medial portion of the fracture and this allowed reduction of the fragment and anatomic reduction of the joint line. The fracture was reduced and pinned. Intraoperative fluoroscopy confirmed reduction then 2 independent 4 0 cannulated lag screws and washers were placed posterior to anterior confirmed on intraoperative imaging to be clear of the joint into provide excellent reduction of the posterior pilon fracture. Next given the large size of the fragment a 4 hole 1/3 tubular plate was placed in a antiglide fashion to secure the proximal aspect of the fragment. Next attention was turned to fixation of fibula fracture. The same posterior lateral approach was used. The peroneal tendons were retracted medially exposing the posterior lateral aspect of the the fibula. There was a long oblique fracture of the fibula from proximal posterior to anterior and distal. Additionally there was a small posterior butterfly fragment that was displaced but had some soft tissue attachments. The fracture was pulled out to length and reduced with a pointed reduction clamp and then held with a K-wire. A 2.7 inter frag lag screw was placed. A 7 hole 1/3 tubular locking plate from the [place] [employer] set was selected was placed in a posterior lateral position with angulation more lateral distally to be able to reach more distal but avoid the groove for the peroneal tendons. This was secured with cortical screws proximally and a cancellous screw distally and a locking screw distally. Intraoperative fluoroscopy was inspected the initial lag screw was noted to be too long was exchanged for shorter 2.7 lag screw. We were very pleased with this reduction. The tourniquet was released after 120 min and hemostasis was achieved. Thrombin and Gelfoam were utilized. Next attention was turned to fixation of medial malleolus fracture. This was attempted to be done from the posterior medial approach with flexing the knee up and working in an upside-down fashion. This was attempted several times but the fragment was noted to be highly comminuted and rotated and it was very difficult to appreciate the anterior part of the joint from this position therefore the decision was made to close the posterior lateral incision packed the medial incision and flipped the patient into a supine position. Lateral wound was irrigated thoroughly and closed in a layered fashion with 2 O Vicryl deep 4 0 Monocryl and 3 O nylon. Patient was then re-prepped and draped in the supine position. Again all bony prominences were well padded. The thigh tourniquet was placed but was not elevated. Again a brief time-out that the same procedure was continuing was confirmed. Antibiotics were redosed as appropriate. Attention was turned to the medial malleolus. The same posterior medial incision was extended slightly anterior index section was carried around the anterior medial malleolus to expose the anterior joint line. This did allow us to get an excellent look at the joint surface of the talus. Notably we were able to observe impaction injury in the anterior central talus a presumably from the fracture dislocation event. This left a small but full-thickness cartilage lesion in this area. A 062 K wire was used to microfracture full- thickness lesion and a small loose fragments were removed the joint was thoroughly irrigated. Additionally at the posterior medial shoulder of the distal tibia with the medial malleolus fracture began there was an area of cartilage loss and impaction. Even with the medial malleolus anatomically reduced there is a small area just medial to this of missing cartilage and bone. The medial malleolus was reduced under direct visualization and held with 2 K-wires. Intraoperative fluoroscopy was used to confirm reduction then 2 4-0 cannulated screws were placed over the K-wires. Final fluoroscopic images were obtained confirming anatomic reduction of the complex ankle/pilon fracture. Wounds were thoroughly irrigated with sterile saline and closed in a layered fashion with care taken to make sure that the posterior tibialis tendon was reduced within its groove and the fascial layers were appropriately closed. This was completed with 2 O Vicryl suture. 2-0 Vicryl suture and 4-0 Monocryl were also used subcutaneously followed by 3-0 nylon suture in the skin. Sterile dressings were applied with Xeroform gauze sterile gauze Webril. Ex fix pin sites were also curetted and dressed with sterile dressings. A well-padded bulky splint was placed with a posterior slab and U slab. The patient was awakened from anesthesia and taken to the PACU in good condition. There were no immediate complications from this procedure all counts were correct. Complications: none Condition: stable Disposition: PACU Plan for aftercare: Patient will be nonweightbearing on the right lower extremity. She will keep this elevated for at least 2 weeks after surgery. She will follow up in the clinic for evaluation. She will anticipate 6 weeks of nonweightbearing followed by partial weight-bearing. She will be maintained on Xarelto for DVT prophylaxis started postop day 1 for minimum of 2 weeks with possible transition to aspirin if she is able to stay off her hormone replacement otherwise will continue DVT prophylaxis with Xarelto or equivalent Lovenox.
--- NOTE | 2018-04-03 21:09 | SUR.PHASEI ---
REPORT CALLED TO JUNIOR OZUNA ON ACUTE CARE FLOOR AT 2039. PT IN STABLE CONDITION. IV SITE CLEAR. OPERATIVE EXTREMITY DRSG C/D/I. +STRENGTH, DULL SENSTATION RELATED TO BLOCK, CAP REFILL WNL, WARM TO TOUCH AND PINK IN COLOR. PT TOLERATING ORAL INTAKE WITHOUT ANY DIFFICULTLY. PT DENIES ANY NAUSEA OR PAIN/DISCOMFORT. PT TRANSFERED TO FLOOR. DURING TRANSPORT, PT TALKING WITH RN. BEDSIDE REPORT GIVEN TO JUNIOR SCHUMACHER UPON ARRIVAL TO ACUTE CARE FLOOR. TRANSFERED CARE OF PT AT THAT TIME.
--- NOTE | 2018-04-03 21:09 | PM.PN.1 ---
Subjective Date Patient Seen: 04/03/18 Time Patient Seen: 21:09 Interval history: Postop day 0 right ankle ORIF. Complex trimalleolar ankle fracture posterior pilon variant--status post staged removal external fixator and ORIF Exam Vital Signs (past 8 hours): - 04/03/18 13:13 04/03/18 20:13 04/03/18 20:18 Temperature 99.6 F 98.0 F Pulse Rate 82 79 73 Respiratory Rate 16 10 L 12 Blood Pressure 109/61 117/58 L 109/61 Pulse Oximetry 95 93 92 04/03/18 20:23 04/03/18 20:28 04/03/18 20:33 Temperature 97.1 F L Pulse Rate 75 72 75 Respiratory Rate 11 L 12 12 Blood Pressure 106/64 109/66 110/49 L Pulse Oximetry 95 95 95 04/03/18 20:43 04/03/18 21:06 Temperature 97.9 F Pulse Rate 69 Respiratory Rate 11 L Blood Pressure 103/55 L Pulse Oximetry 97 96 Oxygen Delivery Method Room Air Assessment & Plan Plan: Assessment/Plan Narrative: 1. Patient will be nonweightbearing on the right lower extremity, strict elevation above the heart level 2. Work with physical therapy likely discharge back to the senior care facility that she was staying at preoperatively 3. We will start Xarelto 10 mg 24 hr after surgery on 04/04/2018 (order in the computer) she be discharged with 2 weeks of Xarelto. SCDs on the left lower extremity 4. Pain has been well controlled with Dilaudid 2 mg p.o. will have this in the hospital and at discharge, as well as Valium 5. Will follow up with Dr. Therese Ferris follow-up appointments are April 16 at 2:[address] 6. We will complete 24 hr postoperative antibiotics Time Spent With Patient Time with patient: less than 15 minutes
--- NOTE | 2018-04-03 21:12 | P.PN_ITS ---
Subjective Date Patient Seen: 04/03/18 Time Patient Seen: 21:09 Interval history: Postop day 0 right ankle ORIF. Complex trimalleolar ankle fracture posterior pilon variant--status post staged removal external fixator and ORIF Exam Vital Signs (past 8 hours): - 04/03/18 13:13 04/03/18 20:13 04/03/18 20:18 Temperature 99.6 F 98.0 F Pulse Rate 82 79 73 Respiratory Rate 16 10 L 12 Blood Pressure 109/61 117/58 L 109/61 Pulse Oximetry 95 93 92 04/03/18 20:23 04/03/18 20:28 04/03/18 20:33 Temperature 97.1 F L Pulse Rate 75 72 75 Respiratory Rate 11 L 12 12 Blood Pressure 106/64 109/66 110/49 L Pulse Oximetry 95 95 95 04/03/18 20:43 04/03/18 21:06 Temperature 97.9 F Pulse Rate 69 Respiratory Rate 11 L Blood Pressure 103/55 L Pulse Oximetry 97 96 Oxygen Delivery Method Room Air Assessment & Plan Plan: Assessment/Plan Narrative: 1. Patient will be nonweightbearing on the right lower extremity, strict elevation above the heart level 2. Work with physical therapy likely discharge back to the shelter facility that she was staying at preoperatively 3. We will start Xarelto 10 mg 24 hr after surgery on 04/04/2018 (order in the computer) she be discharged with 2 weeks of Xarelto. SCDs on the left lower extremity 4. Pain has been well controlled with Dilaudid 2 mg p.o. will have this in the hospital and at discharge, as well as Valium 5. Will follow up with Dr. Therese Ferris follow-up appointments are April 16 at 2:[address] 6. We will complete 24 hr postoperative antibiotics Time Spent With Patient Time with patient: less than 15 minutes
[2018-04-03] MEDS: SODIUM CHLORIDE 0.9% FLUSH 10 ML IV (22:06)
--- NOTE | 2018-04-03 22:40 | PC.NURSE ---
Pt to room 212 from PACU @ 2049 drowsy, but rousable. Denies pain and admits to numbness to RLE. Unable to wiggle toes. Does feel this securities underwriter's touch to right knee. Angel wrap with splint and padding intact without drainage. Ice pack under pt's knee. Equally warm and pink extremities. Pt denies nausea. Given ice chips and sips. Confirmed with Dr. Ferris pt is nonweight bearing. RLE supported on pillow. Calf scd to LLE. Declines to secure valuables. No cell phone with pt observed by this securities underwriter.
--- NOTE | 2018-04-04 00:10 | PC.NURSE ---
Addendum entered by Norma Montoya R.N. 04/04/18 04:18: Assisted to BSC with walker and 2 assist as patient is NWB on right foot; voided 400cc Sensation returned to right foot and is able to wiggle toes; denies any pain or numbness. SCD removed for next hour as per protocol. Original Note: Patient is alert and oriented but very drowsy and sometimes having difficulty coming up with words for what she wants to say; likely due to effects of anesthesia. Breath sounds CTA with RA sat of 96%. HRR. Denies nausea. BT hypoactive and denies flatus. Has not voided since return from surgery at apprx 2100. Is able to assist with repositioning but once turned was not comfortable and asked to be back on back. Right LE in splint. Has no movement/sensation as yet in right foot. Right LE is elevated and has ice pack behind knee for comfort. Wearing SCD on left LE. Bruises noted on left forearm and left LE. Fall risk score is high so bed alarm is activated. Currently denies any pain.
[2018-04-04] MEDS: CEFAZOLIN 2 GM/100 ML FROZ.PIGGY IV ×2 (03:50→10:38)
[2018-04-04] MEDS: SODIUM CHLORIDE 0.9% FLUSH 10 ML IV ×2 (03:50→09:01)
[2018-04-04] MEDS: SODIUM CHLORIDE 0.9% 250 ML 21 ML IV (03:50)
[2018-04-04 04:10] VITALS: BP 114/61; PULSE 61; RESP 16; TEMP 36.6; O2SAT 94
[2018-04-04 06:29] LABS: Hematocrit 38.3 % (36-46); Hemoglobin 13.1 g/dL (12.0-16.0); Mean Corpuscular HGB Conc 34.2 % (30-36); Mean Corpuscular Hemoglobin 30.2 PG (26-34); Mean Corpuscular Volume 88.4 fL (80-100); Platelet Count 253 X10^3/uL (150-400); Red Blood Cell Count 4.33 X10^6/uL (4.0-5.2); Red Cell Distribution Width 12.5 % (11.6-14.8); White Blood Cell Count 9.3 X10^3/uL (4.5-11.0)
[2018-04-04] MEDS: CALCIUM CITRATE 200 MG TABLET PO (09:01)
[2018-04-04] MEDS: CHOLECALCIFEROL (VITAMIN D3) 5,000 UNIT TABLET 5000 UNIT PO (09:01)
[2018-04-04] MEDS: LEVOTHYROXINE 25 MCG TABLET PO (09:01)
[2018-04-04] MEDS: CYANOCOBALAMIN (VITAMIN B-12) 500 MCG TABLET PO (09:01)
[2018-04-04] MEDS: DOCUSATE 100 MG CAPSULE PO (09:01)
[2018-04-04 09:33] VITALS: BP 92/56; PULSE 84; RESP 14; TEMP 37.4; O2SAT 95
--- NOTE | 2018-04-04 10:05 | PT.IIE ---
Current Diagnoses Displaced trimalleolar fracture of right lower leg, initial encounter for closed fracture (04/03/18) Surgery Performed Operation Date: 04/03/18 13:45 Actual Procedures p ORIF Ankle Fracture w/Removal Exfix(Right) - Therese Ferris MD Physical Therapy Inpatient Evaluation/Re-Eval M1 PT/OT-IP Prior Functional Status Start: 04/04/18 12:09 Freq: NEEDED Status: Active Protocol: Document 04/04/18 10:05 AB (Rec: 04/04/18 12:27 AB [id number]) Medical Review Prior Functional Status Medical History Reviewed Yes Communication able to make needs known Mobility and Gait stated that prior to ankle fx, she was independent with all mobilities and ambulation without AD Social History Household Members none Living Arrangements House Number of Floors (Floors) Two Floors Number of Stairs To Enter/Railing? 2 steps to enter without rails : pt will stay on main level of the house Home Environment Standard Height Toilet Home Equipment Manual Wheelchair Bedside Commode Employment Status Retired Additional Social History Comment pt's son stated that the plan is to go back to [facility] for 1 week and he will stay with pt for the next 2 weeks to assist pt. pt has a knee scooter as well but has not tried it pt does not have a shower on main level but plans to just do sponge bathing. M2 PT-IP Current Condition Start: 04/04/18 12:09 Freq: NEEDED Status: Active Protocol: Document 04/04/18 10:05 AB (Rec: 04/04/18 12:27 AB [id number]) Physical Therapy Current Condition Current Condition Evaluation Date 03/23/18 Treatment Diagnosis s/p ORIF ankle with trimalleolar fx; difficulties in walking Onset Date 03/22/18 Precautions Brace R ankle on a soft cast Weight Bearing Status Weight Bearing Status Non-Weight Bearing Allowed Weight Bearing Amount (enter % NWB RLE or #) (%) M3 PT-IP Subjective Start: 04/04/18 12:09 Freq: NEEDED Status: Active Protocol: Document 04/04/18 10:05 AB (Rec: 04/04/18 12:27 AB [id number]) Subjective Physical Therapy Visit Type Type Initial Evaluation Visit Start Time 10:05 Visit Stop Time 10:39 Total Visit Minutes 34 Number of BIOMEDICAL REPAIR TECHNICIAN Visits 0 Physical Therapy Visit Comments Patient Comments pt agreeable to do therapy Therapy Pain Assessment Pain When Pain Assessed At Rest Pain Present Pain Present Pain Reported Location Right Ankle Intensity 2 Scale Used Numeric (1 - 10) Description Aching Pain Management Techniques Timing of Activity with Medications M4 PT-IP Mobility and Gait Start: 04/04/18 12:09 Freq: NEEDED Status: Active Protocol: Document 04/04/18 10:05 AB (Rec: 04/04/18 12:27 AB [id number]) PT-Bed Mobility Assessment Supine to Sit Supine to Sit Standby Assistance PT-Transfer Assessment Sit to and From Stand Sit to and from Stand Moderate Assistance Equipment Transfer Assistive Device Gait Belt Front Wheeled Walker Orthotic/Prosthetic Devices or Brace: Yes Transfers Transfer Destination Chair Transfer Technique Stand Step Pivot Transfer Ability Level of Assist Moderate Assistance 1 Person Assistance Use of Upper Extremities Comments Mobility Comments pt on a soft cast on RLE required cues for sit <>stand to maintain NWB on RLE Gait Assessment Gait Gait Assistance Required: Moderate Assistance 1 Person Assist Comments Gait Comments pt able to hop in place NWB RLE mod A and max cues using FWW PT-Balance Assessment Sitting Balance and Reactions Static Sitting Balance Ability Good Dynamic Sitting Balance Ability Good Standing Balance and Reactions Static Standing Balance Ability Poor Dynamic Standing Balance Ability Poor M5 PT-IP Objective Assessments Start: 04/04/18 12:09 Freq: NEEDED Status: Active Protocol: Document 04/04/18 10:05 AB (Rec: 04/04/18 12:27 AB [id number]) Orientation Orientation/Cognition Level of Alertness Alert Orientation Name Age Day of Week Place Situation Safety Awareness Decreased Safety Awareness Memory Description Short Term Impaired Bead Cutter Impaired Comments pt stated that it is hard for her to remember things Gross Range of Motion Lower Extremity ROM Impairments R ankle not assessed: on soft cast Strength Lower Extremity Strength Assessment Right Impaired Hip 4+/5 Knee 4+/5 Muscle Tone Muscle Tone WNL Yes M6 PT-IP Treatment Start: 04/04/18 12:09 Freq: NEEDED Status: Active Protocol: Document 04/04/18 10:05 AB (Rec: 04/04/18 12:27 AB [id number]) Physical Therapy Treatment Education Education Provided Precautions Weight Bearing Status Safety M7 PT-IP Assessment and Plan Start: 04/04/18 12:09 Freq: NEEDED Status: Active Protocol: Document 04/04/18 10:05 AB (Rec: 04/04/18 12:27 AB [id number]) PT Summary Assessment and Plan Potential Rehabilitation Potential Good Status of Condition at Evaluation Evolving Summary Impairments Pain ROM Strength Balance Sensation Cognition Bed Mobility Transfers Gait Activity Tolerance Assessment Summary pt requiring one person assist with mobility and will require SNF rehab to improve strength and independence. Goals Bed Mobility Goal Independent Transfer Goal Standby Assistance Gait Goal Standby Assistance Gait Distance 40 Days to Meet Goals 3 Frequency of Treatment Frequency Of Treatment Twice a Day Treatment Plan Physical Therapy Treatment Plan Bed Mobility Training Transfer Training Gait Training Therapeutic Exercise Balance Retraining Post Op Education Discharge Planning Hot or Cold Pack Neuromuscular Re-ed Coordination Retraining Manual Therapy Recommendations To Nursing Amount of Assist Needed 1 Person Assist Discharge Recommendations PT Discharge Recommendations SNF Rehab
--- NOTE | 2018-04-04 10:28 | PM.DS.1 ---
History of Present Illness Date Patient Seen: 04/04/18 Time Patient Seen: 10:28 Chief complaint: *OPB [id number] Narrative: Patient sustained a trimalleolar fracture to her right ankle. At initially treated with external fixator by Dr. Ferris and then discharged to [facility]. She returned to hospital yesterday for removal of external fixator and ORIF of trimalleolar fracture by Dr. Ferris. Discharge Providers Primary care physician: Savanah Johnson DO Consults: 04/03/18 21:09 Consult to Discharge Planning Routine Comment: snf (was at a SNF should likely go back postop) Consult to Physical Therapy Evaluate & Treat Comment: NWB RLE Physician Instructions: Evaluate and Treat Consult to Respiratory Therapy Evaluate & Treat Comment: Physician Instructions: Evaluate and treat 04/03/18 21:23 Consult to Plastic Press Operator Routine Comment: Discharge provider: Ravi Espinosa PA-C Summary Discharge Diagnosis: Status post right ankle trimalleolar fracture ORIF by Dr. Ferris. Hospital Course: The patient returned to hospital yesterday to have removal of external fixator and ORIF of right ankle trimalleolar fracture. She has remained stable postoperatively. She returned to [facility] on postop day 1 for further care. Status at Discharge Cognitive/behavioral status at discharge: Alert, oriented no acute distress Overall status at discharge: other (The patient is nonweightbearing to right leg and to have elevation of leg for the next 2 weeks.) Time Spent with Patient Less than 30 minutes Exam Vital Signs (past 8 hours): - 04/04/18 04:10 04/04/18 09:33 Temperature 97.8 F 99.4 F Pulse Rate 61 84 Respiratory Rate 16 14 Blood Pressure 114/61 92/56 L Pulse Oximetry 94 95 Oxygen Delivery Method Room Air Oxygen Flow Rate 0 Narrative Exam Narrative: Alert, oriented no acute distress resting in bed. The right leg. Bulky postoperative dressing and splint intact without drainage. Good blanching of all toes. Objective Labs Result Diagrams: 04/04/18 06:06 Labs: Laboratory Results - last 24 hr 04/04/18 06:06 WBC 9.3 RBC 4.33 Hgb 13.1 Hct 38.3 MCV 88.4 MCH 30.2 MCHC 34.2 RDW 12.5 Plt Count 253 Discharge Plan Discharge Plan Transfer to: [facility] Under care of provider: Facility MD or PCP Transportation: Facility vehicle Discharge comment: Patient is to be nonweightbearing to right lower leg and to have right leg elevated when in bed or sitting over the next 2 weeks. I certify the postop hospital longterm care is medically necessary on a continuing basis for any conditions for which he/ she received care during this hospitalization.: Yes The receiving facility has agreed to accept transfer and provide medical treatment.: Yes Discharge Med Rec/Prescriptions Prescriptions: New hydromorphone 2 mg Tablet 2 mg PO Q3H PRN (Reason: Pain, Severe (7-10)) Qty: 30 RF: 0 diazepam 5 mg Tablet 5 mg PO Q6H PRN (Reason: spasms) Qty: 15 RF: 0 rivaroxaban [Xarelto] 10 mg Tablet 10 mg PO DAILYCC 14 Days Qty: 14 RF: 0 Continue cholecalciferol (vitamin D3) [Vitamin D3] 4,000 UNIT capsule 5,000 unit PO DAILY Qty: 0 RF: 0 coenzyme Q10 [CoQ-10] 100 mg Capsule 300 mg PO DAILY Qty: 0 RF: 0 cyanocobalamin (vitamin B-12) 5,000 MCG tablet,disintegrating 500 mcg PO DAILY Qty: 0 RF: 0 [id number] [krill oil] [id number] mg Capsule 500 mg PO DAILY Qty: 0 RF: 0 [calcium citrate] 1,000 mg PO QDAY Qty: 0 RF: 0 estradiol 0.5 MG tablet 0.5 mg PO Q3D RF: 0 levothyroxine 25 mcg Tablet 25 mcg PO DAILY RF: 0 progesterone micronized [Prometrium] 100 mg Capsule 1 cap PO Q3D RF: 0 docusate sodium 100 mg Capsule 100 mg PO BID Qty: 40 RF: 0 acetaminophen 325 mg Tablet 650 mg PO Q4HR MDD 3000mg PRN (Reason: As Needed For LOPES/Moderate Pain) Qty: 60 RF: 0 Discontinued diazepam 5 mg Tablet 5 mg PO Q6H PRN (Reason: spasms) Qty: 30 RF: 0 enoxaparin [Lovenox] 40 mg/0.4 mL Syringe 40 mg Sub-Q DAILY 12 Days Qty: 12 RF: 0 hydromorphone 2 mg Tablet 2 mg PO Q3H PRN (Reason: Pain, Severe (7-10)) Qty: 60 RF: 0 Discharge Health Status Brief summary of current health status: Patient had right ankle surgery 04/03/2018 for removal of external fixator and ORIF of trimalleolar fracture. She is to be nonweightbearing to her right leg with elevation of leg when sitting or lying down. Multidrug resistant organism: No MDRO Provider Discharge Instructions Diet: Diet as Tolerated Food texture: Regular Activity: Nonweightbearing right lower leg. Wound Care Report to your healthcare provider any signs of infection, such as:: chills, fever, night sweats, increased pain and unusual drainage Special Rehabilitation Services Reason for rehabilitation: Post-operative therapy Rehab type: Physical therapy and Occupational therapy Restrictions to mobility: Nonweightbearing right lower leg. Discharge Data Primary Care Provider: Savanah Johnson Attending Provider: Therese Ferris VTE Deep Vein Thrombosis/Pulmonary Embolism Present on Admission: No
--- NOTE | 2018-04-04 10:35 | P.DS_ITS ---
History of Present Illness Date Patient Seen: 04/04/18 Time Patient Seen: 10:28 Chief complaint: *OPB [id number] Narrative: Patient sustained a trimalleolar fracture to her right ankle. At initially treated with external fixator by Dr. Ferris and then discharged to [facility]. She returned to hospital yesterday for removal of external fixator and ORIF of trimalleolar fracture by Dr. Ferris. Discharge Providers Primary care physician: Savanah Johnson DO Consults: 04/03/18 21:09 Consult to Discharge Planning Routine Comment: snf (was at a SNF should likely go back postop) Consult to Physical Therapy Evaluate & Treat Comment: NWB RLE Physician Instructions: Evaluate and Treat Consult to Respiratory Therapy Evaluate & Treat Comment: Physician Instructions: Evaluate and treat 04/03/18 21:23 Consult to Middle School Football Coach Routine Comment: Discharge provider: Ravi Espinosa PA-C Summary Discharge Diagnosis: Status post right ankle trimalleolar fracture ORIF by Dr. Ferris. Hospital Course: The patient returned to hospital yesterday to have removal of external fixator and ORIF of right ankle trimalleolar fracture. She has remained stable postoperatively. She returned to [facility] on postop day 1 for further care. Status at Discharge Cognitive/behavioral status at discharge: Alert, oriented no acute distress Overall status at discharge: other (The patient is nonweightbearing to right leg and to have elevation of leg for the next 2 weeks.) Time Spent with Patient Less than 30 minutes Exam Vital Signs (past 8 hours): - 04/04/18 04:10 04/04/18 09:33 Temperature 97.8 F 99.4 F Pulse Rate 61 84 Respiratory Rate 16 14 Blood Pressure 114/61 92/56 L Pulse Oximetry 94 95 Oxygen Delivery Method Room Air Oxygen Flow Rate 0 Narrative Exam Narrative: Alert, oriented no acute distress resting in bed. The right leg. Bulky postoperative dressing and splint intact without drainage. Good blanching of all toes. Objective Labs Result Diagrams: 04/04/18 06:06 Labs: Laboratory Results - last 24 hr 04/04/18 06:06 WBC 9.3 RBC 4.33 Hgb 13.1 Hct 38.3 MCV 88.4 MCH 30.2 MCHC 34.2 RDW 12.5 Plt Count 253 Discharge Plan Discharge Plan Transfer to: [facility] Under care of provider: Facility MD or PCP Transportation: Facility vehicle Discharge comment: Patient is to be nonweightbearing to right lower leg and to have right leg elevated when in bed or sitting over the next 2 weeks. I certify the postop hospital chcf care is medically necessary on a continuing basis for any conditions for which he/ she received care during this hospitalization.: Yes The receiving facility has agreed to accept transfer and provide medical treatment.: Yes Discharge Med Rec/Prescriptions Prescriptions: New hydromorphone 2 mg Tablet 2 mg PO Q3H PRN (Reason: Pain, Severe (7-10)) Qty: 30 RF: 0 diazepam 5 mg Tablet 5 mg PO Q6H PRN (Reason: spasms) Qty: 15 RF: 0 rivaroxaban [Xarelto] 10 mg Tablet 10 mg PO DAILYCC 14 Days Qty: 14 RF: 0 Continue cholecalciferol (vitamin D3) [Vitamin D3] 4,000 UNIT capsule 5,000 unit PO DAILY Qty: 0 RF: 0 coenzyme Q10 [CoQ-10] 100 mg Capsule 300 mg PO DAILY Qty: 0 RF: 0 cyanocobalamin (vitamin B-12) 5,000 MCG tablet,disintegrating 500 mcg PO DAILY Qty: 0 RF: 0 [id number]-iap-[id number]-ast [krill oil] 1,[id number] mg Capsule 500 mg PO DAILY Qty: 0 RF: 0 [calcium citrate] 1,000 mg PO QDAY Qty: 0 RF: 0 estradiol 0.5 MG tablet 0.5 mg PO Q3D RF: 0 levothyroxine 25 mcg Tablet 25 mcg PO DAILY RF: 0 progesterone micronized [Prometrium] 100 mg Capsule 1 cap PO Q3D RF: 0 docusate sodium 100 mg Capsule 100 mg PO BID Qty: 40 RF: 0 acetaminophen 325 mg Tablet 650 mg PO Q4HR MDD 3000mg PRN (Reason: As Needed For LOPES/Moderate Pain) Qty: 60 RF: 0 Discontinued diazepam 5 mg Tablet 5 mg PO Q6H PRN (Reason: spasms) Qty: 30 RF: 0 enoxaparin [Lovenox] 40 mg/0.4 mL Syringe 40 mg Sub-Q DAILY 12 Days Qty: 12 RF: 0 hydromorphone 2 mg Tablet 2 mg PO Q3H PRN (Reason: Pain, Severe (7-10)) Qty: 60 RF: 0 Discharge Health Status Brief summary of current health status: Patient had right ankle surgery 2017 for removal of external fixator and ORIF of trimalleolar fracture. She is to be nonweightbearing to her right leg with elevation of leg when sitting or lying down. Multidrug resistant organism: No MDRO Provider Discharge Instructions Diet: Diet as Tolerated Food texture: Regular Activity: Nonweightbearing right lower leg. Wound Care Report to your healthcare provider any signs of infection, such as:: chills, fever, night sweats, increased pain and unusual drainage Special Rehabilitation Services Reason for rehabilitation: Post-operative therapy Rehab type: Physical therapy and Occupational therapy Restrictions to mobility: Nonweightbearing right lower leg. Discharge Data Primary Care Provider: Savanah Johnson Attending Provider: Therese Ferris VTE Deep Vein Thrombosis/Pulmonary Embolism Present on Admission: No
[2018-04-04 10:50] VITALS: O2SAT 97
--- NOTE | 2018-04-04 11:34 | PM.DS.1 ---
History of Present Illness Chief complaint: *OPB [id number] Narrative: Patient sustained a trimalleolar fracture to her right ankle. At initially treated with external fixator by Dr. Ferris and then discharged to [facility]. She returned to hospital yesterday for removal of external fixator and ORIF of trimalleolar fracture by Dr. Ferris. Discharge Providers Primary care physician: Savanah Johnson DO Consults: 04/03/18 21:09 Consult to Discharge Planning Routine Comment: snf (was at a SNF should likely go back postop) Consult to Physical Therapy Evaluate & Treat Comment: NWB RLE Physician Instructions: Evaluate and Treat Consult to Respiratory Therapy Evaluate & Treat Comment: Physician Instructions: Evaluate and treat 04/03/18 21:23 Consult to Support Specialist Routine Comment: Discharge provider: Ravi Espinosa PA-C Exam Vital Signs (past 8 hours): - 04/04/18 04:10 04/04/18 09:33 04/04/18 10:50 Temperature 97.8 F 99.4 F Pulse Rate 61 84 Respiratory Rate 16 14 Blood Pressure 114/61 92/56 L Pulse Oximetry 94 95 97 Oxygen Delivery Method Room Air Oxygen Flow Rate 21 Objective Labs Result Diagrams: 04/04/18 06:06 Labs: Laboratory Results - last 24 hr 04/04/18 06:06 WBC 9.3 RBC 4.33 Hgb 13.1 Hct 38.3 MCV 88.4 MCH 30.2 MCHC 34.2 RDW 12.5 Plt Count 253 Discharge Plan Discharge Plan Patient Disposition: SNF Transfer to: [facility] Under care of provider: Facility MD or PCP Transportation: Facility vehicle Discharge comment: Patient is to be nonweightbearing to right lower leg and to have right leg elevated when in bed or sitting over the next 2 weeks. I certify the postop hospital retirement care is medically necessary on a continuing basis for any conditions for which he/ she received care during this hospitalization.: Yes The receiving facility has agreed to accept transfer and provide medical treatment.: Yes Discharge Med Rec/Prescriptions Prescriptions: New hydromorphone 2 mg Tablet 2 mg PO Q3H PRN (Reason: Pain, Severe (7-10)) Qty: 30 RF: 0 diazepam 5 mg Tablet 5 mg PO Q6H PRN (Reason: spasms) Qty: 15 RF: 0 rivaroxaban [Xarelto] 10 mg Tablet 10 mg PO DAILYCC 14 Days Qty: 14 RF: 0 Continue cholecalciferol (vitamin D3) [Vitamin D3] 4,000 UNIT capsule 5,000 unit PO DAILY Qty: 0 RF: 0 coenzyme Q10 [CoQ-10] 100 mg Capsule 300 mg PO DAILY Qty: 0 RF: 0 cyanocobalamin (vitamin B-12) 5,000 MCG tablet,disintegrating 500 mcg PO DAILY Qty: 0 RF: 0 [id number]-mxg-gdppkyy-ast [krill oil] 1,809-004-09-80 mg Capsule 500 mg PO DAILY Qty: 0 RF: 0 [calcium citrate] 1,000 mg PO QDAY Qty: 0 RF: 0 estradiol 0.5 MG tablet 0.5 mg PO Q3D RF: 0 levothyroxine 25 mcg Tablet 25 mcg PO DAILY RF: 0 progesterone micronized [Prometrium] 100 mg Capsule 1 cap PO Q3D RF: 0 docusate sodium 100 mg Capsule 100 mg PO BID Qty: 40 RF: 0 acetaminophen 325 mg Tablet 650 mg PO Q4HR MDD 3000mg PRN (Reason: As Needed For LOPES/Moderate Pain) Qty: 60 RF: 0 Discontinued diazepam 5 mg Tablet 5 mg PO Q6H PRN (Reason: spasms) Qty: 30 RF: 0 enoxaparin [Lovenox] 40 mg/0.4 mL Syringe 40 mg Sub-Q DAILY 12 Days Qty: 12 RF: 0 hydromorphone 2 mg Tablet 2 mg PO Q3H PRN (Reason: Pain, Severe (7-10)) Qty: 60 RF: 0 Discharge Health Status Brief summary of current health status: Patient had right ankle surgery 04/03/2018 for removal of external fixator and ORIF of trimalleolar fracture. She is to be nonweightbearing to her right leg with elevation of leg when sitting or lying down. Multidrug resistant organism: No MDRO Provider Discharge Instructions Diet: Diet as Tolerated Food texture: Regular Activity: Nonweightbearing right lower leg. Special Rehabilitation Services Reason for rehabilitation: Post-operative therapy Rehab type: Physical therapy and Occupational therapy Restrictions to mobility: Nonweightbearing right lower leg. Discharge Data Primary Care Provider: Savanah Johnson Attending Provider: Therese Ferris VTE Deep Vein Thrombosis/Pulmonary Embolism Present on Admission: No
--- NOTE | 2018-04-04 11:38 | PM.DS.1 ---
History of Present Illness Chief complaint: *OPB [id number] Narrative: Patient sustained a trimalleolar fracture to her right ankle. At initially treated with external fixator by Dr. Ferris and then discharged to [facility]. She returned to hospital yesterday for removal of external fixator and ORIF of trimalleolar fracture by Dr. Ferris. Discharge Providers Primary care physician: Savanah Johnson DO Consults: 04/03/18 21:09 Consult to Discharge Planning Routine Comment: snf (was at a SNF should likely go back postop) Consult to Physical Therapy Evaluate & Treat Comment: NWB RLE Physician Instructions: Evaluate and Treat Consult to Respiratory Therapy Evaluate & Treat Comment: Physician Instructions: Evaluate and treat 04/03/18 21:23 Consult to Branch Sales Manager Routine Comment: Discharge provider: Ravi Espinosa PA-C Exam Vital Signs (past 8 hours): - 04/04/18 04:10 04/04/18 09:33 04/04/18 10:50 Temperature 97.8 F 99.4 F Pulse Rate 61 84 Respiratory Rate 16 14 Blood Pressure 114/61 92/56 L Pulse Oximetry 94 95 97 Oxygen Delivery Method Room Air Oxygen Flow Rate 21 Objective Labs Result Diagrams: 04/04/18 06:06 Labs: Laboratory Results - last 24 hr 04/04/18 06:06 WBC 9.3 RBC 4.33 Hgb 13.1 Hct 38.3 MCV 88.4 MCH 30.2 MCHC 34.2 RDW 12.5 Plt Count 253 Discharge Plan Discharge Plan Patient Disposition: SNF Transfer to: [facility] Under care of provider: Facility MD or PCP Transportation: Facility vehicle Discharge comment: Patient is to be nonweightbearing to right lower leg and to have right leg elevated when in bed or sitting over the next 2 weeks. I certify the postop hospital snf care is medically necessary on a continuing basis for any conditions for which he/ she received care during this hospitalization.: Yes The receiving facility has agreed to accept transfer and provide medical treatment.: Yes Discharge Med Rec/Prescriptions Prescriptions: New hydromorphone 2 mg Tablet 2 mg PO Q3H PRN (Reason: Pain, Severe (7-10)) Qty: 30 RF: 0 diazepam 5 mg Tablet 5 mg PO Q6H PRN (Reason: spasms) Qty: 15 RF: 0 rivaroxaban [Xarelto] 10 mg Tablet 10 mg PO DAILYCC 14 Days Qty: 14 RF: 0 Continue cholecalciferol (vitamin D3) [Vitamin D3] 4,000 UNIT capsule 5,000 unit PO DAILY Qty: 0 RF: 0 coenzyme Q10 [CoQ-10] 100 mg Capsule 300 mg PO DAILY Qty: 0 RF: 0 cyanocobalamin (vitamin B-12) 5,000 MCG tablet,disintegrating 500 mcg PO DAILY Qty: 0 RF: 0 bnbel-in-5-raf-lre-ceibcyo-ast [krill oil] 1,264-930-81-80 mg Capsule 500 mg PO DAILY Qty: 0 RF: 0 [calcium citrate] 1,000 mg PO QDAY Qty: 0 RF: 0 estradiol 0.5 MG tablet 0.5 mg PO Q3D RF: 0 levothyroxine 25 mcg Tablet 25 mcg PO DAILY RF: 0 progesterone micronized [Prometrium] 100 mg Capsule 1 cap PO Q3D RF: 0 docusate sodium 100 mg Capsule 100 mg PO BID Qty: 40 RF: 0 acetaminophen 325 mg Tablet 650 mg PO Q4HR MDD 3000mg PRN (Reason: As Needed For LOPES/Moderate Pain) Qty: 60 RF: 0 Discontinued diazepam 5 mg Tablet 5 mg PO Q6H PRN (Reason: spasms) Qty: 30 RF: 0 enoxaparin [Lovenox] 40 mg/0.4 mL Syringe 40 mg Sub-Q DAILY 12 Days Qty: 12 RF: 0 hydromorphone 2 mg Tablet 2 mg PO Q3H PRN (Reason: Pain, Severe (7-10)) Qty: 60 RF: 0 Discharge Health Status Brief summary of current health status: Patient had right ankle surgery 04/03/2018 for removal of external fixator and ORIF of trimalleolar fracture. She is to be nonweightbearing to her right leg with elevation of leg when sitting or lying down. Multidrug resistant organism: No MDRO Provider Discharge Instructions Diet: Diet as Tolerated Food texture: Regular Activity: Nonweightbearing right lower leg. Special Rehabilitation Services Reason for rehabilitation: Post-operative therapy Rehab type: Physical therapy and Occupational therapy Restrictions to mobility: Nonweightbearing right lower leg. Discharge Data Primary Care Provider: Savanah Johnson Attending Provider: Therese Ferris VTE Deep Vein Thrombosis/Pulmonary Embolism Present on Admission: No
--- NOTE | 2018-04-04 11:41 | P.DS_ITS ---
History of Present Illness Chief complaint: *OPB [id number] Narrative: Patient sustained a trimalleolar fracture to her right ankle. At initially treated with external fixator by Dr. Ferris and then discharged to [facility]. She returned to hospital yesterday for removal of external fixator and ORIF of trimalleolar fracture by Dr. Ferris. Discharge Providers Primary care physician: Savanah Johnson DO Consults: 04/03/18 21:09 Consult to Discharge Planning Routine Comment: snf (was at a SNF should likely go back postop) Consult to Physical Therapy Evaluate & Treat Comment: NWB RLE Physician Instructions: Evaluate and Treat Consult to Respiratory Therapy Evaluate & Treat Comment: Physician Instructions: Evaluate and treat 04/03/18 21:23 Consult to Go Cart Mechanic Routine Comment: Discharge provider: Ravi Espinosa PA-C Exam Vital Signs (past 8 hours): - 04/04/18 04:10 04/04/18 09:33 04/04/18 10:50 Temperature 97.8 F 99.4 F Pulse Rate 61 84 Respiratory Rate 16 14 Blood Pressure 114/61 92/56 L Pulse Oximetry 94 95 97 Oxygen Delivery Method Room Air Oxygen Flow Rate 21 Objective Labs Result Diagrams: 04/04/18 06:06 Labs: Laboratory Results - last 24 hr 04/04/18 06:06 WBC 9.3 RBC 4.33 Hgb 13.1 Hct 38.3 MCV 88.4 MCH 30.2 MCHC 34.2 RDW 12.5 Plt Count 253 Discharge Plan Discharge Plan Patient Disposition: SNF Transfer to: [facility] Under care of provider: Facility MD or PCP Transportation: Facility vehicle Discharge comment: Patient is to be nonweightbearing to right lower leg and to have right leg elevated when in bed or sitting over the next 2 weeks. I certify the postop hospital fci care is medically necessary on a continuing basis for any conditions for which he/ she received care during this hospitalization.: Yes The receiving facility has agreed to accept transfer and provide medical treatment.: Yes Discharge Med Rec/Prescriptions Prescriptions: New hydromorphone 2 mg Tablet 2 mg PO Q3H PRN (Reason: Pain, Severe (7-10)) Qty: 30 RF: 0 diazepam 5 mg Tablet 5 mg PO Q6H PRN (Reason: spasms) Qty: 15 RF: 0 rivaroxaban [Xarelto] 10 mg Tablet 10 mg PO DAILYCC 14 Days Qty: 14 RF: 0 Continue cholecalciferol (vitamin D3) [Vitamin D3] 4,000 UNIT capsule 5,000 unit PO DAILY Qty: 0 RF: 0 coenzyme Q10 [CoQ-10] 100 mg Capsule 300 mg PO DAILY Qty: 0 RF: 0 cyanocobalamin (vitamin B-12) 5,000 MCG tablet,disintegrating 500 mcg PO DAILY Qty: 0 RF: 0 ewqos-gf-5-ydj-yrz-gjlkati-ast [krill oil] 1,486-831-05-80 mg Capsule 500 mg PO DAILY Qty: 0 RF: 0 [calcium citrate] 1,000 mg PO QDAY Qty: 0 RF: 0 estradiol 0.5 MG tablet 0.5 mg PO Q3D RF: 0 levothyroxine 25 mcg Tablet 25 mcg PO DAILY RF: 0 progesterone micronized [Prometrium] 100 mg Capsule 1 cap PO Q3D RF: 0 docusate sodium 100 mg Capsule 100 mg PO BID Qty: 40 RF: 0 acetaminophen 325 mg Tablet 650 mg PO Q4HR MDD 3000mg PRN (Reason: As Needed For LOPES/Moderate Pain) Qty: 60 RF: 0 Discontinued diazepam 5 mg Tablet 5 mg PO Q6H PRN (Reason: spasms) Qty: 30 RF: 0 enoxaparin [Lovenox] 40 mg/0.4 mL Syringe 40 mg Sub-Q DAILY 12 Days Qty: 12 RF: 0 hydromorphone 2 mg Tablet 2 mg PO Q3H PRN (Reason: Pain, Severe (7-10)) Qty: 60 RF: 0 Discharge Health Status Brief summary of current health status: Patient had right ankle surgery 2017 for removal of external fixator and ORIF of trimalleolar fracture. She is to be nonweightbearing to her right leg with elevation of leg when sitting or lying down. Multidrug resistant organism: No MDRO Provider Discharge Instructions Diet: Diet as Tolerated Food texture: Regular Activity: Nonweightbearing right lower leg. Special Rehabilitation Services Reason for rehabilitation: Post-operative therapy Rehab type: Physical therapy and Occupational therapy Restrictions to mobility: Nonweightbearing right lower leg. Discharge Data Primary Care Provider: Savanah Johnson Attending Provider: Therese Ferris VTE Deep Vein Thrombosis/Pulmonary Embolism Present on Admission: No
--- NOTE | 2018-04-04 11:44 | PM.DS.1 ---
History of Present Illness Chief complaint: *OPB [id number] Narrative: Patient sustained a trimalleolar fracture to her right ankle. At initially treated with external fixator by Dr. Ferris and then discharged to [facility]. She returned to hospital yesterday for removal of external fixator and ORIF of trimalleolar fracture by Dr. Ferris. Discharge Providers Primary care physician: Savanah Johnson DO Consults: 04/03/18 21:09 Consult to Discharge Planning Routine Comment: snf (was at a SNF should likely go back postop) Consult to Physical Therapy Evaluate & Treat Comment: NWB RLE Physician Instructions: Evaluate and Treat Consult to Respiratory Therapy Evaluate & Treat Comment: Physician Instructions: Evaluate and treat 04/03/18 21:23 Consult to Wellness Nurse Routine Comment: Discharge provider: Ravi Espinosa PA-C Exam Vital Signs (past 8 hours): - 04/04/18 04:10 04/04/18 09:33 04/04/18 10:50 Temperature 97.8 F 99.4 F Pulse Rate 61 84 Respiratory Rate 16 14 Blood Pressure 114/61 92/56 L Pulse Oximetry 94 95 97 Oxygen Delivery Method Room Air Oxygen Flow Rate 21 Objective Labs Result Diagrams: 04/04/18 06:06 Labs: Laboratory Results - last 24 hr 04/04/18 06:06 WBC 9.3 RBC 4.33 Hgb 13.1 Hct 38.3 MCV 88.4 MCH 30.2 MCHC 34.2 RDW 12.5 Plt Count 253 Discharge Plan Discharge Plan Patient Disposition: SNF Transfer to: [facility] Under care of provider: Facility MD or PCP Transportation: Facility vehicle Discharge comment: Patient is to be nonweightbearing to right lower leg and to have right leg elevated when in bed or sitting over the next 2 weeks. I certify the postop hospital longterm care is medically necessary on a continuing basis for any conditions for which he/ she received care during this hospitalization.: Yes The receiving facility has agreed to accept transfer and provide medical treatment.: Yes Discharge Med Rec/Prescriptions Prescriptions: New hydromorphone 2 mg Tablet 2 mg PO Q3H PRN (Reason: Pain, Severe (7-10)) Qty: 30 RF: 0 diazepam 5 mg Tablet 5 mg PO Q6H PRN (Reason: spasms) Qty: 15 RF: 0 rivaroxaban [Xarelto] 10 mg Tablet 10 mg PO DAILYCC 14 Days Qty: 14 RF: 0 Continue cholecalciferol (vitamin D3) [Vitamin D3] 4,000 UNIT capsule 5,000 unit PO DAILY Qty: 0 RF: 0 coenzyme Q10 [CoQ-10] 100 mg Capsule 300 mg PO DAILY Qty: 0 RF: 0 cyanocobalamin (vitamin B-12) 5,000 MCG tablet,disintegrating 500 mcg PO DAILY Qty: 0 RF: 0 nnmvw-vd-5-hhw-nai-qhtzzze-ast [krill oil] 1,611-096-22-80 mg Capsule 500 mg PO DAILY Qty: 0 RF: 0 [calcium citrate] 1,000 mg PO QDAY Qty: 0 RF: 0 estradiol 0.5 MG tablet 0.5 mg PO Q3D RF: 0 levothyroxine 25 mcg Tablet 25 mcg PO DAILY RF: 0 progesterone micronized [Prometrium] 100 mg Capsule 1 cap PO Q3D RF: 0 docusate sodium 100 mg Capsule 100 mg PO BID Qty: 40 RF: 0 acetaminophen 325 mg Tablet 650 mg PO Q4HR MDD 3000mg PRN (Reason: As Needed For LOPES/Moderate Pain) Qty: 60 RF: 0 Discontinued diazepam 5 mg Tablet 5 mg PO Q6H PRN (Reason: spasms) Qty: 30 RF: 0 enoxaparin [Lovenox] 40 mg/0.4 mL Syringe 40 mg Sub-Q DAILY 12 Days Qty: 12 RF: 0 hydromorphone 2 mg Tablet 2 mg PO Q3H PRN (Reason: Pain, Severe (7-10)) Qty: 60 RF: 0 Discharge Orders: Discharge (Order); Ordered 04/04/18 Ordered By: Ravi Espinosa Discharge Health Status Brief summary of current health status: Patient had right ankle surgery 04/03/2018 for removal of external fixator and ORIF of trimalleolar fracture. She is to be nonweightbearing to her right leg with elevation of leg when sitting or lying down. Multidrug resistant organism: No MDRO Provider Discharge Instructions Diet: Diet as Tolerated Food texture: Regular Activity: Nonweightbearing right lower leg. Special Rehabilitation Services Reason for rehabilitation: Post-operative therapy Rehab type: Physical therapy and Occupational therapy Restrictions to mobility: Nonweightbearing right lower leg. Discharge Data Primary Care Provider: Savanah Johnson Attending Provider: Therese Ferris VTE Deep Vein Thrombosis/Pulmonary Embolism Present on Admission: No
--- NOTE | 2018-04-04 11:49 | CM.DANOTE ---
Patient is a 72 year old female READMIT on 04/03/18 for OPB Surgical procedure. Pt has MCR and for insurance and her PCP is Dr. Savanah Johnson. EMR was reviewed. Per Ortho PA, pt tolerated surgery well and medically stable for d/c back to [facility] today for rehab. Per PT, recommending SNF rehab at d/c. SW met bedside with pt and she confirmed that she was recently discharged to [facility] rehab from [facility] while waiting for her surgical procedure and preference is to return to [facility] rehab now that she has had surgery prior to safe d/c back home safely. SW called [facility] admissions Allyson and updated on d/c today back to [facility] and she confirms they can accept the pt and SW faxed scripts and signed med rec and no PASRR needed since pt is returning to [facility]. OSEI updated RN and pt on likely 1200 time of transport while waiting for final d/c order to be placed in the computer. OSEI updated Allyson that official d/c order not in the computer but Ortho PA aware and will complete d/c order. 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 Plan: Patient to d/c back to [facility] rehab today around 1200 via facility w/c. JAYASHREE Engle Discharge Planning/Care Management CM Discharge Assessment Start: 04/04/18 11:46 Freq: Status: Active Protocol: Document 04/04/18 11:47 BF (Rec: 04/04/18 11:48 BF [id number]) Discharge Planning Assessment Assigned Shoe Associate JAYASHREE History Provided By Patient Friend Medical Record Has Patient been admitted in last 30 Yes days? Is this patient on Medicare? Yes Is the admit diagnosis the same? Yes Prior Living Arrangements House Household Members none Type of transporation used prior to Drives own vehicle admit Independent with ADL's Yes Is patient alert and oriented? Yes Caregiver for Another No Comment I at baseline and no other supportive services at baseline. Patient Discharge Plan Description [facility] Facility Referrals Initiated [facility] Comment admitted from [facility] where she was pre-op waiting for her surg Comment Pt has very supportive 2 neighbor/friends bedside who can assist at d/c Discharge Plan [facility] Facility Transportation Arrangement [facility] to provide transport If patient plan is SNF: Has PASSR been No: no PASRR needed, admitted completed? from [facility] Review Status In Process Next Review Type Discharge Review
--- NOTE | 2018-04-04 12:15 | PC.NURSE ---
Day shift: Pt d/c'd to [facility]. She is happy to go. Scrips and d/c packet in manilla envelope. Pt has all personal belongings. Left unit at approx 1230 via w/ [facility] ECHO VASCULAR TECH. Pt reports no pain. CMS ok. Good cap refill. Pt ate lunch here w/ no nausea reported.
== END 2018-04-04 12:33 ==
LOC: OR 12:02 → AC 12:03
PROVIDERS: Family Provider Family Medicine; PCP Family Medicine; Visit Provider Orthopaedic Surgery Foot and Ankle Surgery
PROC: 0SSF04Z Reposition Right Ankle Joint with Internal Fixation Device, Open Approach (ICD-10-PCS; CPT 27828; principal; 2018-04-03 13:45)
DX: S82.851D Displaced trimalleolar fracture of right lower leg, subsequent encounter for closed fracture with routine healing (principal); S82.871D Displaced pilon fracture of right tibia, subsequent encounter for closed fracture with routine healing; S82.891D Other fracture of right lower leg, subsequent encounter for closed fracture with routine healing
CPT/HCPCS: 27828; 20694; 28899; 27766; 36415; 64450; 73610; 76001; 85027; 94760; 94762; 97161; J0690; J1100; J2250; J2405; J2704; J3010

== ENCOUNTER → 2019-08-06 09:06 | Outpatient (CLI) | payer MEDICARE, OTHER, SELFPAY ==
[2018-04-08 16:05] VITALS: BMI 27.7
--- NOTE | 2019-08-06 | DI.MG.S_ITS ---
BILATERAL DIGITAL SCREENING MAMMOGRAM 3D/2D WITH CAD: 08/06/2019 CLINICAL: Routine screening. Comparison is made to exams dated: 08/04/2017 mammogram, 06/21/2015 mammogram, and 06/13/2014 mammogram - [facility]. There are scattered fibroglandular elements in both breasts. Current study was also evaluated with a Computer Aided Detection (CAD) system. There are benign post operative findings in the left breast. No significant masses, calcifications, or other findings are seen in either breast. There has been no significant interval change. IMPRESSION: There is no mammographic evidence of malignancy. A 1 year screening mammogram is recommended. This exam was interpreted at Station ID: [id number]. NOTE: For mammograms, a report in lay terms will be sent to the patient. Approximately 15% of breast malignancies will not be visualized mammographically. In the management of a palpable breast mass, a negative mammogram must not discourage biopsy of a clinically suspicious lesion. Electronically Signed By: Dash dietz/courtney:08/06/2019 09:59:39 letter sent: Normal Exam ACR BI-RADS Category 2: Benign Finding(s) 3342F
== END ==
PROVIDERS: PCP Family Medicine; Visit Provider Internal Medicine
DX: Z12.31 Encounter for screening mammogram for malignant neoplasm of breast (principal); M85.88 Other specified disorders of bone density and structure, other site; Z78.0 Asymptomatic menopausal state; E07.9 Disorder of thyroid, unspecified
CPT/HCPCS: 77063; 77067; 77080

== ENCOUNTER → 2020-10-05 16:06 | Outpatient (CLI) | payer MEDICARE, SELFPAY ==
[2018-04-08 16:05] VITALS: BMI 27.7
[2020-10-05] MEDS: COVID-19 VACC #1, MRNA(MOD) 100 MCG/0.5 ML VIAL IM (16:16)
== END ==
PROVIDERS: PCP Family Medicine; Visit Provider Internal Medicine
DX: Z23 Encounter for immunization (principal)
CPT/HCPCS: 0011A; 91301

== ENCOUNTER → 2020-11-02 15:57 | Outpatient (CLI) | payer MEDICARE, SELFPAY ==
[2018-04-08 16:05] VITALS: BMI 27.7
[2020-11-02] MEDS: COVID-19 VACC #2, MRNA(MOD) 100 MCG/0.5 ML VIAL IM (16:07)
== END ==
PROVIDERS: PCP Family Medicine; Visit Provider Internal Medicine
DX: Z23 Encounter for immunization (principal)
CPT/HCPCS: 0012A; 91301

== ENCOUNTER → 2021-03-26 09:52 | Outpatient (CLI) | payer MEDICARE, SELFPAY ==
[2018-04-08 16:05] VITALS: BMI 27.7
--- NOTE | 2021-03-26 | DI.MG.S_ITS ---
BILATERAL DIGITAL SCREENING MAMMOGRAM 3D/2D WITH CAD: 03/26/2021 CLINICAL: Routine screening. Comparison is made to exams dated: 08/06/2019 mammogram, 08/04/2017 mammogram, and 06/21/2015 mammogram - [facility]. There are scattered fibroglandular elements in both breasts. Current study was also evaluated with a Computer Aided Detection (CAD) system. There are benign calcifications in both breasts. There also are benign post operative findings in the left breast. There are mole markers on the right breast. There is a mole marker on the left breast. No significant masses, calcifications, or other findings are seen in either breast. There has been no significant interval change. IMPRESSION: BENIGN There is no mammographic evidence of malignancy. A 1 year screening mammogram is recommended. This exam was interpreted at Station ID: [id number]. NOTE: For mammograms, a report in lay terms will be sent to the patient. Approximately 15% of breast malignancies will not be visualized mammographically. In the management of a palpable breast mass, a negative mammogram must not discourage biopsy of a clinically suspicious lesion. Electronically Signed By: Juan Archer acr/penrad:03/26/2021 10:54:48 letter sent: Normal Exam ACR BI-RADS Category 2: Benign Finding(s) 3342F
== END ==
PROVIDERS: PCP Internal Medicine; Referring Provider Internal Medicine; Visit Provider Internal Medicine
DX: Z12.31 Encounter for screening mammogram for malignant neoplasm of breast (principal)
CPT/HCPCS: 77063; 77067

== ENCOUNTER 2021-05-08 10:38 | Emergency (ER) | payer MEDICARE, SELFPAY ==
[2018-04-08 16:05] VITALS: BMI 27.7
[2021-05-08] VITALS (8 sets, daily range): BP systolic 97–148; BP diastolic 62–78; PULSE 60–80; RESP 11–40; TEMP 37.1; O2SAT 93–98
--- NOTE | 2021-05-08 10:58 | DI.RAD.S_ITS ---
PROCEDURE: XR CHEST 1V INDICATIONS: chest pain TECHNIQUE: One view of the chest was acquired. COMPARISON: [facility], , CHEST 2 VIEW, 04/24/2009, 9:46. FINDINGS: Surgical changes and devices: None. Lungs and pleura: Lungs are clear. No pleural effusions or pneumothorax. Mediastinum: Mediastinal contours appear normal. Heart size is normal. Bones and chest wall: Both shoulders have degenerative changes. No suspicious bony lesions. Overlying soft tissues appear unremarkable. IMPRESSION: No acute cardiopulmonary abnormality. Dictated by: Juan Archer M.D. on 05/08/2021 at 11:34 Approved by: Juan Archer M.D. on 05/08/2021 at 11:35
[2021-05-08 11:15] LABS: Add Manual Diff / Slide Review NO; Basophils Absolute Auto 0 /uL (0-100); Basophils Percent Auto 0.8 % (0-2); Eosinophils Absolute Auto 100 /uL (0-450); Eosinophils Percent Auto 1.4 % (2-4); Hematocrit 43.2 % (36-46); Hemoglobin 14.7 g/dL (12.0-16.0); Lymphocytes Absolute Auto 1100 /uL (1100-4500); Mean Corpuscular Hemoglobin 30.7 PG (26-34); Mean Corpuscular Volume 90.3 fL (80-100); Monocytes Absolute Auto 400 /uL (0-900); Monocytes Percent Auto 9.7 % (3-14); Neutrophils Absolute Auto 2700 /uL (1500-7000); Neutrophils Percent Auto 63.1 % (50-75); Platelet Count 189 X10^3/uL (150-400); Red Blood Cell Count 4.78 X10^6/uL (4.0-5.2); Red Cell Distribution Width 13.4 % (11.6-14.8); White Blood Cell Count 4.3 X10^3/uL (4.5-11.0)
[2021-05-08] MEDS: ASPIRIN 81 MG CHEW TAB 324 MG PO (11:16)
[2021-05-08] MEDS: NITROGLYCERIN 0.4 MG SL TAB SL (11:17)
[2021-05-08 11:28] LABS: PTT Partial Thromboplastin Tim 30 SECONDS (26.4-36.2)
[2021-05-08 11:29] LABS: Alanine Aminotransferase 31 IU/L (<35); Albumin 4.4 g/dL (3.5-5.0); Albumin Globulin Ratio 1.5 (1.0-2.8); Alkaline Phosphatase 60 U/L (38-126); Aspartate Aminotransferase 35 IU/L (14-36); BUN Creatinine Ratio 21.9 (6-22); Bilirubin Total 0.4 mg/dL (0.2-1.3); Blood Urea Nitrogen 16 mg/dL (7-17); Calcium 9.2 mg/dL (8.4-10.2); Carbon Dioxide 24 mmol/L (22-32); Chloride 109 mmol/L (98-107); Creatine Kinase 51 U/L (30-135); Estimated Glomerular Filt Rate > 60.0 mL/min (>60); Glucose 107 mg/dL (80-110); HEMOLYSIS < 15 (0-50); Lipase 143 U/L (23-300); Magnesium 1.8 mg/dL (1.6-2.3); Potassium 4.1 mmol/L (3.4-5.1); Sodium 139 mmol/L (137-145); Total Protein 7.4 g/dL (6.3-8.2)
--- NOTE | 2021-05-08 11:30 | ED_ITS ---
HPI - Chest Pain General Chief Complaint: Chest Pain Stated Complaint: Chest pressure, PCP wants covid test Time Seen by Provider: 05/08/21 11:12 Source: patient Mode of arrival: Ambulatory Limitations: no limitations History of Present Illness HPI narrative: Patient is a 76-year-old female with history of hypothyroid presenting with 3 days of chest pressure. He is it is constant in the center of her chest without radiation. She is not sure what she was doing when she 1st noticed it. She says it is worse when she lies down and rests. She is able to pull josiah off a fence without any difficulty. She has a very busy person it does not seem to slow her down. She does feel like there is something in her nuzhat ngs. She has no cough or fever. She does have a small to goal in her throat. She did take 1 dose of Mucinex because she says it feels like chest congestion. She denies any productive cough or shortness of breath with exertion. She also denies any lower extremity edema. She is fully vaccinated for COVID.. No prior history of coronary artery disease. She has a small dose of statin. Related Data Home Medications Medication Instructions Recorded Confirmed cholecalciferol (vitamin D3) 100 5,000 unit PO DAILY #0 05/03/16 01/07/19 mcg (4,000 unit) capsule (Vitamin D3) coenzyme Q10 100 mg capsule 300 mg PO DAILY #0 05/03/16 01/07/19 (CoQ-10) cyanocobalamin (vitamin B-12) 500 mcg PO DAILY #0 03/04/17 01/07/19 5,000 mcg disintegrating tablet krill 1,000 mg-omega-3 170 mg-dha 500 mg PO DAILY #0 03/04/17 01/07/19 50 mg-epa 80 [id number] capsule (krill oil) [calcium citrate] 1,000 mg PO QDAY #0 11/21/17 01/07/19 ashwaganda PO DAILY 01/07/19 01/07/19 chromium picolinate PO DAILY 01/07/19 01/07/19 multivitamin with minerals 1 tab PO DAILY 01/07/19 01/07/19 (Hair,Skin and Nails) thyroid (pork) 30 mg tablet 30 mg PO DAILY 01/07/19 01/07/19 ([place] Thyroid) Previous Rx's Medication Instructions Recorded progesterone micronized 100 mg 100 mg PO Q2D #45 cap 03/17/20 capsule (Prometrium) estradiol 0.5 mg tablet See Rx Instructions .ROUTE 07/24/20 .COMPLEX #30 tab Allergies Allergy/AdvReac Type Severity Reaction Status Date / Time No Known Drug Allergies Allergy Verified 01/07/19 09:00 Review of Systems Review of Systems Narrative: GENERAL: Denies chills, fatigue, malaise, fever, sweats, travel HEENT: Denies sinus pain, ear pain, sore throat, difficulty swallowing, neck pain RESPIRATORY: See HPI CARDIOVASCULAR: See HPI GASTROINTESTINAL: Denies nausea, vomiting, abdominal pain, diarrhea, constipation, melena. : Denies dysuria, frequency, incontinence, hematuria, urinary retention, flank pain. MUSCULOSKELETAL: Denies weakness, joint pain, or bony pain SKIN: No rash, no erythema, no pruritus NEUROLOGIC: Denies weakness, dizziness, headache, numbness, change in speech, confusion PSYCHIATRIC: No concerning psychosocial issues. 12 point review of systems is negative except for those stated above and HPI Patient History Medical History (Updated 05/08/21 @ 12:09 by Lea Luna DO) Chickenpox (1950) Chronic back pain (2015) Hearing loss (~04/2017) Hyperlipemia Hypothyroidism (~2013) Measles (1949) Mumps (1949) Neutropenia (~2001) Osteopenia (~2001) Plantar warts Seasonal affective disorder Urinary incontinence Surgical History (Updated 04/17/18 @ 09:54 by Ashley Medley LPN) History of breast lump/mass excision (1972) Family History (Updated 04/17/18 @ 10:04 by Ashley Medley LPN) Father Diabetes mellitus Heart disease Hypertension Grandmother Throat cancer Mother Cancer Mental health problem Grandfather Diabetes mellitus Heart disease Hypertension Grandmother Cancer Social History household members: none Smoking Status: Never smoker Smoking Status: Never smoker alcohol intake frequency: 0-2 drinks per day Substance Use Type: does not use Exam Initial Vital Signs Initial Vital Signs: Vital Signs Temperature 98.8 F 05/08/21 10:45 Pulse Rate 76 05/08/21 10:45 Respiratory Rate 16 05/08/21 10:45 Blood Pressure 148/74 H 05/08/21 10:45 Pulse Oximetry 98 05/08/21 10:45 GENERAL: Well-appearing 76-year-old female and in no acute distress. HEENT: Head atraumatic,EOMI, pupils reactive, face symmetric, moist mucous membranes CARDIOVASCULAR: Regular rate and rhythm without murmurs, rubs or gallops. RESPIRATORY: Breath sounds equal bilaterally, no wheezes rales or rhonchi. ABDOMEN: Soft, nontender. Normoactive bowel sounds all 4 quadrants. No guar ding or rebound. EXTREMITIES: Normal range of motion, no clubbing or edema. Neurovascularly intact NEUROLOGICAL: Alert and oriented x4.Normal gait and speech. SKIN: Warm, dry, no laceration, no petechiae, no rashes or lesions. Scores HEART Score Heart Score history: Slightly Suspicious Heart Score EKG: Normal Heart Score Age: > or = 65 years old Heart Score risk factors: No known risk factors Heart Score troponin: < or = to normal limit Heart Score Total: 2 Course Orders Ordered: ED Orders 05/08/21 11:10 BNP [NT-proBNP (BNP-Adult 18+)] Stat Complete Blood Count AUTO DIFF Stat Comprehensive Metabolic Panel Stat Lipase Stat Magnesium Stat Partial Thromboplastin Time Stat Prothrombin Time INR Stat Troponin & CK Cardiac Panel Stat 05/08/21 11:11 COVID19 - ADMIT ([employer] swab/PCR) Stat Discontinued Medications Aspirin (Aspirin 81 Mg Chew Tab) 324 mg PO NOW ONE Stop: 05/08/21 10:59 Last Admin: 05/08/21 11:16 Dose: 324 mg Documented by: TRACEY Nitroglycerin (Nitroglycerin 0.4 Mg Sl Tab) 0.4 mg SL [id number] PRN PRN Reason: Chest Pain Last Admin: 05/08/21 11:17 Dose: 0.4 mg Documented by: TRACEY Vital Signs Vital signs: Vital Signs - 8 hr 05/08/21 12:32 Pulse Rate 72 Respiratory Rate 16 Blood Pressure 104/67 Pulse Oximetry 98 MDM - Chest Pain Lab Data Result diagrams: 05/08/21 11:10 05/08/21 11:10 Labs: Lab Results 05/08/21 05/08/21 05/08/21 Range/Units 11:10 11:10 11:10 WBC 4.3 L (4.5-11.0) X10^3/uL RBC 4.78 (4.0-5.2) X10^6/uL Hgb 14.7 (12.0-16.0) g/dL Hct 43.2 (36-46) % MCV 90.3 (80-100) fL MCH 30.7 (26-34) PG MCHC 34.0 (30-36) % RDW 13.4 (11.6-14.8) % Plt Count 189 (150-400) X10^3/uL Neut % (Auto) 63.1 (50-75) % Lymph % (Auto) 25.0 (25-40) % [place] % (Auto) 9.7 (3-14) % Eos % (Auto) 1.4 L (2-4) % Baso % (Auto) 0.8 (0-2) % Neut # (Auto) 2700 (0719-6994) /uL Lymph # (Auto) 1100 (9987-5737) /uL [place] # (Auto) 400 (0-900) /uL Eos # (Auto) 100 (0-450) /uL Baso # (Auto) 0 (0-100) /uL PT 11.0 (10.1-12.7) SECONDS INR 1.0 (0.9-1.3) APTT 30 (26.4-36.2) SECONDS Sodium 139 (137-145) mmol/L Potassium 4.1 (3.4-5.1) mmol/L Chloride 109 H (98-107) mmol/L Carbon Dioxide 24 (22-32) mmol/L BUN 16 (7-17) mg/dL Creatinine 0.73 (0.52-1.04) mg/dL Estimated GFR > 60.0 (>60) mL/min BUN/Creatinine Ratio 21.9 (6-22) Glucose 107 (80-110) mg/dL Calcium 9.2 (8.4-10.2) mg/dL Magnesium 1.8 (1.6-2.3) mg/dL Total Bilirubin 0.4 (0.2-1.3) mg/dL AST 35 (14-36) IU/L ALT 31 (<35) IU/L Alkaline Phosphatase 60 (38-126) U/L Total Creatine Kinase 51 (30-135) U/L CK-MB (CK-2) TNP CK-MB (CK-2) Rel Index TNP Troponin I < 0.012 (0.01-0.034) ng/mL NT-Pro-B Natriuret Pep 177 (<450) pg/mL Total Protein 7.4 (6.3-8.2) g/dL Albumin 4.4 (3.5-5.0) g/dL Globulin 3.0 (1.7-4.1) g/dL Albumin/Globulin Ratio 1.5 (1.0-2.8) Lipase 143 (23-300) U/L SARS-CoV-2 (PCR) (Negative) 05/08/21 Range/Units 11:11 WBC (4.5-11.0) X10^3/uL RBC (4.0-5.2) X10^6/uL Hgb (12.0-16.0) g/dL Hct (36-46) % MCV (80-100) fL MCH (26-34) PG MCHC (30-36) % RDW (11.6-14.8) % Plt Count (150-400) X10^3/uL Neut % (Auto) (50-75) % Lymph % (Auto) (25-40) % [place] % (Auto) (3-14) % Eos % (Auto) (2-4) % Baso % (Auto) (0-2) % Neut # (Auto) (4263-0059) /uL Lymph # (Auto) (7997-4995) /uL [place] # (Auto) (0-900) /uL Eos # (Auto) (0-450) /uL Baso # (Auto) (0-100) /uL PT (10.1-12.7) SECONDS INR (0.9-1.3) APTT (26.4-36.2) SECONDS Sodium (137-145) mmol/L Potassium (3.4-5.1) mmol/L Chloride (98-107) mmol/L Carbon Dioxide (22-32) mmol/L BUN (7-17) mg/dL Creatinine (0.52-1.04) mg/dL Estimated GFR (>60) mL/min BUN/Creatinine Ratio (6-22) Glucose (80-110) mg/dL Calcium (8.4-10.2) mg/dL Magnesium (1.6-2.3) mg/dL Total Bilirubin (0.2-1.3) mg/dL AST (14-36) IU/L ALT (<35) IU/L Alkaline Phosphatase (38-126) U/L Total Creatine Kinase (30-135) U/L CK-MB (CK-2) CK-MB (CK-2) Rel Index Troponin I (0.01-0.034) ng/mL NT-Pro-B Natriuret Pep (<450) pg/mL Total Protein (6.3-8.2) g/dL Albumin (3.5-5.0) g/dL Globulin (1.7-4.1) g/dL Albumin/Globulin Ratio (1.0-2.8) Lipase (23-300) U/L SARS-CoV-2 (PCR) Negative (Negative) Imaging Data Chest x-ray: Radiologist's Impression: PROCEDURE: XR CHEST 1V INDICATIONS: chest pain TECHNIQUE: One view of the chest was acquired. COMPARISON: [facility], CHEST 2 VIEW, 04/24/2009, 9:46. FINDINGS: Surgical changes and devices: None. Lungs and pleura: Lungs are clear. No pleural effusions or pneumothorax. Mediastinum: Mediastinal contours appear normal. Heart size is normal. Bones and chest wall: Both shoulders have degenerative changes. No suspicious bony lesions. Overlying soft tissues appear unremarkable. IMPRESSION: No acute cardiopulmonary abnormality. Dictated by: Juan Archer M.D. on 05/08/2021 at 11:34 ECG Data Interpretation: Normal sinus rhythm rate 75 SC interval 1 QRS [address] changes or T-wave inversions no priors MDM Narrative Medical decision making narrative: Patient has been having ongoing chest discomfort for 3-5 days. It is worse when she is at rest. It does not stop her with any exertion. This would be very atypical for acute coronary syndrome. She has a negative troponin, he EKG shows no concerning signs. She has low heart score. At this time I recommend she follow up her primary care provider for any further cardiac testing and return as needed. Discharge Plan Departure Patient Disposition: Home Clinical Impression: Atypical chest pain Instructions: DI for Atypical Chest Pain Activity Restrictions/Additional Instructions: *You have been diagnosed with atypical chest pain *What to do: At this time blood work was overall reassuring COVID test is negative. The please follow the primary care provider for further cardiac testing *Continue to take medications as directed *Follow up with your primary care provider in 2-3 days *Return to ER if you should have increasing chest pain, chest pressure palpitations cough shortness of breath or fever or any new, worsening or concerning symptoms Prescriptions: No Action cholecalciferol (vitamin D3) [Vitamin D3] 4,000 UNIT capsule 5,000 unit PO DAILY Qty: 0 RF: 0 coenzyme Q10 [CoQ-10] 100 mg Capsule 300 mg PO DAILY Qty: 0 RF: 0 cyanocobalamin (vitamin B-12) 5,000 MCG tablet,disintegrating 500 mcg PO DAILY Qty: 0 RF: 0 [id number] [krill oil] 1,[id number] mg Capsule 500 mg PO DAILY Qty: 0 RF: 0 [calcium citrate] 1,000 mg PO QDAY Qty: 0 RF: 0 progesterone micronized [Prometrium] 100 mg capsule 100 mg PO Q2D Qty: 45 RF: 1 estradiol 0.5 mg tablet See Rx Instructions .ROUTE .COMPLEX Qty: 30 RF: 2 thyroid (pork) [[place] Thyroid] 30 mg tablet 30 mg PO DAILY RF: 0 chromium picolinate PO DAILY RF: 0 ashwaganda PO DAILY RF: 0 multivitamin with minerals [Hair,Skin and Nails] tablet 1 tab PO DAILY RF: 0 Referrals: Huma Vines ARNP [Primary Care Provider] -
[2021-05-08 11:41] LABS: NT-proBNP (BNP-Adult 18+) 177 pg/mL (<450); Troponin I < 0.012 ng/mL (0.01-0.034)
[2021-05-08 12:22] LABS: COVID19 - ADMIT (NP swab/PCR) Negative (Negative)
== END 2021-05-08 12:32 | disposition home or self-care (01) ==
PROVIDERS: Emergency Provider Emergency Medicine; PCP Internal Medicine
DX: R07.89 Other chest pain (principal); Z20.822 Contact with and (suspected) exposure to COVID-19
CPT/HCPCS: 36415; 71045; 80053; 82550; 83690; 83735; 83880; 84484; 85025; 85610; 85730; 87635; 93005; 99284; C9803

== ENCOUNTER → 2022-01-17 16:03 | Outpatient (ROUT) | payer MEDICARE, SELFPAY ==
[2018-04-08 16:05] VITALS: BMI 27.7
[2022-01-17 16:53] LABS: Influenza A - CEPHEID Flu A NEGATIVE (NEGATIVE); Influenza B - CEPHEID Flu B NEGATIVE (NEGATIVE)
== END ==
PROVIDERS: PCP Internal Medicine; Visit Provider Internal Medicine
DX: R50.9 Fever, unspecified (principal)
CPT/HCPCS: 87502

== ENCOUNTER → 2022-05-15 09:58 | Outpatient (CLI) | payer MEDICARE, SELFPAY ==
[2018-04-08 16:05] VITALS: BMI 27.7
--- NOTE | 2022-05-15 | DI.MG.S_ITS ---
BILATERAL DIGITAL SCREENING MAMMOGRAM 3D/2D WITH CAD: 05/15/2022 CLINICAL: Routine screening. Comparison is made to exams dated: 03/26/2021 mammogram, 08/06/2019 mammogram, 08/04/2017 mammogram, and 06/21/2015 mammogram - [facility]. There are scattered areas of fibroglandular density in both breasts (category b / 25%-50% glandular tissue). Current study was also evaluated with a Computer Aided Detection (CAD) system. There are benign calcifications in both breasts. No significant masses, calcifications, or other findings are seen in either breast. There has been no significant interval change. IMPRESSION: BENIGN There is no mammographic evidence of malignancy. A 1 year screening mammogram is recommended. Based on the Tyrer Cuzick model (a risk assessment model) the patient's lifetime risk is 4.9% and her 10 year risk is 0.0%. According to the ACR, ACS, and NCCN guidelines, an annual breast MRI exam along with mammogram is recommended if the patient's lifetime risk is 20% or greater. This exam was interpreted at Station ID: [id number]. NOTE: For mammograms, a report in lay terms will be sent to the patient. Approximately 15% of breast malignancies will not be visualized mammographically. In the management of a palpable breast mass, a negative mammogram must not discourage biopsy of a clinically suspicious lesion. Electronically Signed By: Sanya jiménez/courtney:05/15/2022 11:20:15 letter sent: Normal Exam ACR BI-RADS Category 2: Benign Finding(s) [id number]
== END ==
PROVIDERS: PCP Internal Medicine; Referring Provider Internal Medicine; Visit Provider Internal Medicine
DX: Z12.31 Encounter for screening mammogram for malignant neoplasm of breast (principal)
CPT/HCPCS: 77063; 77067

== ENCOUNTER → 2023-04-09 10:01 | Outpatient (CLI) | payer MEDICARE, SELFPAY ==
[2018-04-08 16:05] VITALS: BMI 27.7
--- NOTE | 2023-04-09 10:33 | DI.DEXA.S_ITS ---
Bone Density Report Name: WINSOME RODRIGUEZ Age: 78 Sex: Female Ethnicity: White Date of : 1945 Indication: osteopenia; Referring Provider: PIEDAD TORRES Study: Bone densitometry was performed. Exam Date: April 09, 2023 Accession number: [id number] Bone Density: Region BMD T-score Z-score Classification AP Spine(L1-L4) 0.892 -1.4 1.2 Osteopenia Femoral Neck (Left) 0.708 -1.3 1.0 Osteopenia Total Hip (Left) 0.835 -0.9 1.1 Normal Femoral Neck (Right) 0.646 -1.8 0.4 Osteopenia Total Hip (Right) 0.821 -1.0 1.0 Normal Total Hip Mean 0.828 -1.0 1.1 Normal World Health Organization criteria for BMD impression classify patients as: Normal (T-score at or above -1.0), Osteopenia (T-score between -1.0 and -2.5), or Osteoporosis (T-score at or below -2.5). 10-year Fracture Risk(1): Major Osteoporotic Fracture 14% Hip Fracture 3.9% Reported Risk Factors: [place] (), Neck BMD=0.646, BMI=24.3 (1) FRAX(R) Version 3.08. Fracture probability calculated for an untreated patient. Fracture probability may be lower if the patient has received treatment. Previous Exams: -- Region Exam Age BMD T-score BMD Change BMD Change Date g/cm2 vs Baseline vs Previous -- AP Spine (L1-L4) 04/09/2023 78 0.892 -1.4 0.025 (2.9%)# 0.025 (2.9%)# 08/06/2019 74 0.866 -1.6 Total Hip(Left) 04/09/2023 78 0.835 -0.9 -0.011 (-1.2%)# -0.011 (-1.2%)# 08/06/2019 74 0.846 -0.8 Total Hip(Right) 04/09/2023 78 0.821 -1.0 -0.012 (-1.5%)# -0.012 (-1.5%)# 08/06/2019 74 0.833 -0.9 -- *Denotes significance at 95% confidence level, LSC for AP Spine = 0.022 g/cm2, LSC for Total Hip = 0.027 g/cm2 # Denotes dissimilar scan types or analysis methods Impression: The patient has low bone mass, based on the Right Femoral Neck T-score. The patient has an estimated ten-year risk of hip fracture of 3.9% and an estimated ten-year risk of major fracture of 14%, based on the WHO FRAX algorithm. No significant bone loss was observed. Discussion: BONE DENSITY IS LOW AT ONE OR MORE SKELETAL SITES. THE PATIENT'S BMD AND CLINICAL RISK FACTORS CONTRIBUTE TO THIS PATIENT'S INCREASED RISK OF FRACTURE. This patient's lowest T-score is low at one or more skeletal sites. It meets the World Health Organization's (WHO) criteria for ?low bone mass? (T-score between -1.0 and -2.5). The patient's 10-year risk of hip fracture as calculated by FRAX exceeds the threshold where pharmacological therapy is recommended by the National Osteoporosis Foundation (NOF). However, all treatment decisions require clinical judgment and consideration of individual patient factors, including patient preferences, comorbidities, previous drug use, risk factors not captured in the FRAX model (e.g., frailty, falls, vitamin D deficiency, increased bone turnover, interval significant decline in bone density) and possible under or overestimation of fracture risk by FRAX. The patient should follow a healthful lifestyle (good nutrition with adequate calcium and vitamin D, and appropriate weight-bearing exercise). Follow-Up: Consider a repeat BMD and Vertebral Fracture Assessment (VFA) exam in 2 years or sooner if medically necessary, to reassess this patient's status. Reported by: MACK BELL M.D. on 04/09/2023 10:45:00 AM.
== END ==
PROVIDERS: PCP Internal Medicine; Referring Provider Internal Medicine; Visit Provider Internal Medicine
DX: Z78.0 Asymptomatic menopausal state (principal); M85.851 Other specified disorders of bone density and structure, right thigh
CPT/HCPCS: 77080

== ENCOUNTER → 2023-06-05 14:00 | Outpatient (CLI) | payer MEDICARE, SELFPAY ==
[2018-04-08 16:05] VITALS: BMI 27.7
--- NOTE | 2023-06-05 | DI.MG.S_ITS ---
BILATERAL DIGITAL SCREENING MAMMOGRAM 3D/2D WITH CAD: 06/05/2023 CLINICAL: Routine screening. Comparison is made to exams dated: 05/15/2022 mammogram, 03/26/2021 mammogram, 08/06/2019 mammogram, and 08/04/2017 mammogram - [facility]. There are scattered areas of fibroglandular density in both breasts (category b / 25%-50% glandular tissue). Current study was also evaluated with a Computer Aided Detection (CAD) system. There are benign calcifications in both breasts. No significant masses, calcifications, or other findings are seen in either breast. There has been no significant interval change. IMPRESSION: BENIGN There is no mammographic evidence of malignancy. A 1 year screening mammogram is recommended. Based on the Tyrer Cuzick model (a risk assessment model) the patient's lifetime risk is 4.4% and her 10 year risk is 0.0%. According to the ACR, ACS, and NCCN guidelines, an annual breast MRI exam along with mammogram is recommended if the patient's lifetime risk is 20% or greater. This exam was interpreted at Station ID: [id number]. NOTE: For mammograms, a report in lay terms will be sent to the patient. Approximately 15% of breast malignancies will not be visualized mammographically. In the management of a palpable breast mass, a negative mammogram must not discourage biopsy of a clinically suspicious lesion. Electronically Signed By: Sanya jiménez/courtney:06/05/2023 15:51:44 letter sent: Normal Exam ACR BI-RADS Category 2: Benign Finding(s) [id number]
== END ==
PROVIDERS: PCP Internal Medicine; Referring Provider Internal Medicine; Visit Provider Internal Medicine
DX: Z12.31 Encounter for screening mammogram for malignant neoplasm of breast (principal)
CPT/HCPCS: 77063; 77067

== ENCOUNTER → 2024-02-12 13:16 | Outpatient (CLI) | payer MEDICARE, SELFPAY ==
[2018-04-08 16:05] VITALS: BMI 27.7
--- NOTE | 2024-02-12 13:18 | DI.US.S_ITS ---
PROCEDURE: US THYROID INDICATIONS: MULTINODULAR THYROID TECHNIQUE: Real-time scanning was performed of the thyroid gland, with image documentation. COMPARISON: [facility], [place], THYROID, 02/27/2017, 11:02. FINDINGS: Thyroid: Right lobe measures 4.0 x 1.1 x 1.2 cm. Left lobe measures 3.3 x 1.5 x 1.2 cm. Isthmus is 1.8 mm thick. Echotexture is heterogeneous. IMPRESSION: Heterogeneous thyroid with no focal area median criteria for additional imaging follow-up. ACR TI-RADS definitions and recommendations: TI-RADS 1 (benign): 0 points. FNA not needed. TI-RADS 2 (not suspicious): 2 points. FNA not needed. TI-RADS 3 (mildly suspicious): 3 points. * FNA if 2.5 cm or larger, follow up if 1.5 cm or larger (at 1, 3, and 5 years). TI-RADS 4 (moderately suspicious): 4-6 points. * FNA if 1.5 cm or larger, follow up if 1 cm or larger (at 1, 2, 3, and 5 years). TI-RADS 5 (highly suspicious): 7 points or more. * FNA if 1 cm or larger, follow up if 0.5 cm or larger (every year for 5 years). Dictated by: Cielo Boyd M.D. on 02/12/2024 at 16:59 Approved by: Cielo Boyd M.D. on 02/12/2024 at 17:00
== END ==
PROVIDERS: PCP Internal Medicine; Referring Provider Internal Medicine; Visit Provider Internal Medicine
DX: E04.2 Nontoxic multinodular goiter (principal)
CPT/HCPCS: 76536

== ENCOUNTER → 2024-06-10 08:02 | Outpatient (CLI) | payer MEDICARE, SELFPAY ==
[2018-04-08 16:05] VITALS: BMI 27.7
--- NOTE | 2024-06-10 08:03 | DI.MG.S_ITS ---
BILATERAL DIGITAL SCREENING MAMMOGRAM 3D/2D WITH CAD: 06/10/2024 CLINICAL: Routine screening. Comparison is made to exams dated: 06/05/2023 mammogram, 05/15/2022 mammogram, and 03/26/2021 mammogram - . There are scattered areas of fibroglandular density (category b / 25%-50% glandular tissue). Current study was also evaluated with a Computer Aided Detection (CAD) system. There are benign calcifications in both breasts. No significant masses, calcifications, or other findings are seen in either breast. There has been no significant interval change. IMPRESSION: BENIGN There is no mammographic evidence of malignancy. A 1 year screening mammogram is recommended. Based on the Tyrer Cuzick model (a risk assessment model) the patient's lifetime risk is 2.0% and her 10 year risk is 0.0%. According to the ACR, ACS, and NCCN guidelines, an annual breast MRI exam along with mammogram is recommended if the patient's lifetime risk is 20% or greater. This exam was interpreted at Station ID: [id number]. NOTE: For mammograms, a report in lay terms will be sent to the patient. Approximately 15% of breast malignancies will not be visualized mammographically. In the management of a palpable breast mass, a negative mammogram must not discourage biopsy of a clinically suspicious lesion. Electronically Signed By: Khadra mcknight/courtney:06/10/2024 12:53:09 letter sent: Normal Exam ACR BI-RADS Category 2: Benign
== END ==
PROVIDERS: PCP Internal Medicine; Referring Provider Internal Medicine; Visit Provider Internal Medicine
DX: Z12.31 Encounter for screening mammogram for malignant neoplasm of breast (principal)
CPT/HCPCS: 77063; 77067

== ENCOUNTER → 2024-07-22 08:17 | Outpatient (CLI) | payer MEDICARE, SELFPAY ==
[2018-04-08 16:05] VITALS: BMI 27.7
--- NOTE | 2024-07-22 | DI.US.S_ITS ---
PROCEDURE: US RENAL COMPLETE INDICATIONS: Urinary tract infection with hematuria TECHNIQUE: Real-time scanning was performed of the kidneys and bladder, with image documentation. COMPARISON: None. FINDINGS: Kidneys: Kidneys are normal in size. Right kidney measures 10.5 cm long; left kidney measures 10.2 cm long. Right renal cortical thickness is 1.1 cm; left renal cortical thickness is 1.1 cm. Renal cortical echotexture is normal. No hydronephrosis or nephrolithiasis. No suspicious solid mass lesions. Bladder: Pre-void bladder volume is 1 fully mL. Post-void residual is 2 mL. Pre-void images demonstrate no intraluminal masses or stones. On pre-void images, bilateral ureteral jets are noted with color Doppler interrogation. (Of note, ureteral jets may not be detectable in up to 25% of cases due to insufficient differences in specific gravity between ureteral and bladder urine). Miscellaneous: No free pelvic fluid. IMPRESSION: Unremarkable sonographic appearance of the kidneys bilaterally and no source for microscopic hematuria identified. Dictated by: Mario Harp [facility] Interpreted: Griffin Sheridan MD on 07/22/2024 at 15:03 Transcribed by: EMILY on 07/22/2024 at 15:04 Approved by: Griffin Sheridan M.D. on 07/28/2024 at 9:57
== END ==
PROVIDERS: PCP Internal Medicine; Referring Provider Internal Medicine; Visit Provider Internal Medicine
DX: N39.0 Urinary tract infection, site not specified (principal); R31.9 Hematuria, unspecified
CPT/HCPCS: 76770

== ENCOUNTER → 2024-09-22 09:43 | Outpatient (CLI) | payer MEDICARE, SELFPAY ==
[2018-04-08 16:05] VITALS: BMI 27.7
--- NOTE | 2024-09-22 09:44 | DI.CT.S_ITS ---
PROCEDURE: CT IVP A/P W/WO INDICATIONS: asymptomatic microscopic hematuria TECHNIQUE: Optional 5 mm thick noncontrast images acquired from the diaphragm to the symphysis pubis. After the administration of intravenous contrast, 5 mm thick images acquired from the diaphragm to the symphysis pubis after a 10-minute delay. 2 mm thick coronal and sagittal reformats were then performed of the kidneys and ureters. For radiation dose reduction, the following was used: automated exposure control, adjustment of mA and/or kV according to patient size. COMPARISON: None. FINDINGS: Image quality: Diagnostic. Kidneys and Ureters: Both kidneys are normal in size, without hydronephrosis or nephrolithiasis. No perinephric fat stranding. There is normal bilateral renal enhancement. Renal calyces appear normal in morphology when filled with contrast. Small left peripelvic cysts. Opacified portions of both ureters demonstrate normal caliber. Bladder: Bladder wall thickness is normal. No calcified bladder stones. OTHER: Lower chest: Unremarkable. Liver: No solid mass. Tiny cyst in the right liver. Gallbladder: No radiopaque gallstones or wall thickening. Biliary ducts: No biliary dilation. Pancreas: No ductal dilation. Spleen: Size is within normal limits. Adrenal Glands: No adrenal nodules. Stomach and Bowel: Normal colonic caliber, without significant wall thickening. Diverticulosis. No diverticulitis. Normal appendix. Peritoneum: No abnormal intraperitoneal fluid. No free air. Ventral Wall: No hernia. Abdominal Nodes: No retroperitoneal or mesenteric adenopathy by size criteria. Vessels: Aorta and inferior vena cava are normal in size. Dense calcified plaque. PELVIS: Pelvic Organs: Anteverted uterus. Pelvic Nodes: No enlarged lymph nodes. Miscellaneous: No inguinal hernias are seen. Bones: No aggressive osseous abnormality. IMPRESSION: 1. No kidney stones. No hydronephrosis. 2. No solid renal mass. 3. No upper urinary tract filling defect. Dictated by: Sanya Rabago M.D. on 09/22/2024 at 16:50 Approved by: Sanya Rabago M.D. on 09/22/2024 at 16:58
== END ==
PROVIDERS: PCP Internal Medicine; Referring Provider Urology; Visit Provider Urology
DX: R31.21 Asymptomatic microscopic hematuria (principal)
CPT/HCPCS: 74178; Q9967

== ENCOUNTER → 2024-11-11 11:07 | Outpatient (CLI) | payer MEDICARE, SELFPAY ==
[2018-04-08 16:05] VITALS: BMI 27.7
--- NOTE | 2024-11-11 11:10 | DI.RAD.S_ITS ---
PROCEDURE: XR ANKLE RT MIN 3V INDICATIONS: ANKLE PAIN TECHNIQUE: 3 views of the ankle were acquired. COMPARISON: [facility], , XR ANKLE RT MIN 3V, 04/03/2018, 15:39. FINDINGS: Bones: Multiple plate and screws transfix an old trimalleolar fracture which is solidly unified in anatomic alignment. Tibiotalar and talocalcaneal joints: Normal in width and alignment without arthritic change. Tiny loose bodies present the lateral ankle mortise Soft tissues: There is mild diffuse soft swelling IMPRESSION: ORIF trimalleolar fracture solid unified anatomic alignment. Tiny loose body lateral ankle mortise Dictated by: Kai Ramírez M.D. on 11/11/2024 at 12:14 Approved by: Kai Ramírez M.D. on 11/11/2024 at 12:16
== END ==
PROVIDERS: PCP Family Medicine; Referring Provider Family Medicine; Visit Provider Family Medicine
DX: M25.571 Pain in right ankle and joints of right foot (principal); G89.29 Other chronic pain; Z87.81 Personal history of (healed) traumatic fracture
CPT/HCPCS: 73610

== ENCOUNTER 2025-07-14 06:40 | Day surgery (SDC) | payer MEDICARE, SELFPAY ==
[2018-04-08 16:05] VITALS: BMI 27.7
--- NOTE | 2025-07-14 | PATH_ITS ---
[facility] Accession Number: [id number] No. of containers..01 Tissue . 01 Material submitted: . body - COLON, POLYP @ 15 . 01 Diagnosis: COLON, POLYP @ 15: Polypoid inflamed granulation tissue, compatible with inflammatory polyp. No neoplasm, granulomas, or infectious organisms identified. [facility] 07/26/2025 1418 Local . 01 Electronically signed: . Griffin Tapia MD, Pathologist NPI- [id number] . 01 Gross description: . Received one formalin-filled container, labeled with the patient's name and polyp at 15. The specimen consists of two fragments of mccarty, soft tissue which range in size from 0.2 x 0.2 x 0.2 cm to 0.4 x 0.4 x 0.2 cm. All fragments are totally submitted in one cassette. ([id number]) /[facility] 07/26/2025 1418 Local . 01 Pathologist provided ICD-10: K51.40, Z12.11 . 01 CPT . 731684 Specimen Comment: A courtesy copy of this report has been sent to [facility] Pathology Performed at: [address] [facility] [id number] MD Griffin Tapia MD Phone: [phone]
--- NOTE | 2025-07-14 06:28 | PM.HP.IH.1 ---
History of Present Illness History of Present Illness Date Patient Seen: 07/14/25 Time Patient Seen: 06:29 [place] [facility] [place]ative: 80yo F presents for colonoscopy today. [facility] Medical History Neutropenia (~2001) Urinary incontinence Hearing loss (~04/2017) Seasonal affective disorder Hyperlipemia Hypothyroidism (~2013) Chronic back pain (2015) Plantar warts Osteopenia (~2001) Mumps (1949) Measles (1949) Chickenpox (1949) Surgical History History of breast lump/mass excision (1972) Family History Father Diabetes mellitus Heart disease Hypertension Grandmother Throat cancer Mother Cancer Mental health problem Grandfather Diabetes mellitus Heart disease Hypertension Grandmother Cancer Social History marital status: household members: none alcohol intake: never caffeine: Yes Type(s) of exercise: walking and yoga Meds Home Medications and Allergies Home Medications ?Medication ?Instructions ?Recorded ?Confirmed ?Type cholecalciferol (vitamin D3) 100 5,000 unit PO DAILY ##0 05/03/16 11/11/24 History mcg (4,000 unit) capsule (Vitamin D3) coenzyme Q10 100 mg capsule 300 mg PO DAILY ##0 05/03/16 11/11/24 History (CoQ-10) cyanocobalamin (vitamin B-12) 500 mcg PO DAILY ##0 03/04/17 11/11/24 History 5,000 mcg disintegrating tablet krill 1,000 mg-omega-3 170 mg-dha 500 mg PO DAILY ##0 03/04/17 11/11/24 History 50 mg-epa 80 od-bfsgml-tmsge capsule (krill oil) [calcium citrate] 1,000 mg PO QDAY ##0 11/21/17 11/11/24 History ashwaganda PO DAILY 01/07/19 11/11/24 History chromium picolinate PO DAILY 01/07/19 11/11/24 History multivitamin with minerals 1 tab PO DAILY 01/07/19 11/11/24 History (Hair,Skin and Nails tablet) thyroid (pork) 30 mg tablet 30 mg PO DAILY 01/07/19 11/11/24 History ([place] Thyroid) progesterone micronized 100 mg 100 mg PO Q2D HRT #45 caps 03/17/20 11/11/24 Rx capsule (Prometrium) estradiol 0.5 mg tablet See Rx Instructions .Route 07/24/20 11/11/24 Rx .COMPLEX #30 tabs levothyroxine 50 mcg capsule 50 mcg PO DAILY 08/26/24 11/11/24 History sodium,potassium,mag sulfates 17.5 See Rx Instructions PO .COMPLEX 06/02/25 Rx gram-3.13 gram-1.6 gram oral soln #354 mL (Suprep Bowel Prep Kit) Allergies Allergy/AdvReac Type Severity Reaction Status Date / Time No Known Drug Allergies Allergy Verified 11/11/24 10:31 Exam Narrative Exam Narrative: Const General: comfortable Orientation: alert and oriented x3 Resp Effort & Inspection: normal respiratory effort and able to speak in complete sentences Cardio Rate: regular rate GI Palpation: soft (NT) Extrem General: no pedal edema and no calf tenderness Assessment & Plan Assessment and plan (1) Encounter for screening colonoscopy: Status: Acute Plan Plan screening colonoscopy, possible biopsy. The risks, benefits and options regarding the procedure were explained to the patient in detail. Risk discussion included but not limited to: bleeding, perforation, missed lesion, unable to reach cecum. The patient was encouraged to ask questions and they were answered to their satisfaction. The patient understands and is agreeable to proceed. Time-Based Coding :: [TOTAL MINUTES] spent with patient and on the chart (including review of chart, obtaining history, exam, reviewing outside data, placing orders, documenting exam and treatment plan, and counseling patient) on [DATE]. [employer] Document charge(s): Yes Charge Codes Inpatient/observation care including admit and discharge same day: [id number]
[2025-07-14 07:09] VITALS: BP 145/81; PULSE 90; RESP 16; TEMP 37.1; O2SAT 97
[2025-07-14] MEDS: LACTATED RINGERS 1,000 ML 84 ML IV ×2 (07:27→08:42)
--- NOTE | 2025-07-14 07:34 | P.OP.COLON_ITS ---
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 Time out was performed. Procedural sedation was administered by anesthesia. Examination began with a thorough inspection of the perianal area. There was no evidence of fissures, fistulae, external hemorrhoids or cutaneous malignancy. The colonoscope was then placed into the rectum and the lumen was insufflated with carbon dioxide. The scope was carefully advanced forward. Ultimately the cecum was intubated and confirmed by identification of the ileocecal valve, the appendiceal orifice and the confluence of the taenia. The scope was then slowly withdrawn examining the colon thoroughly in all directions. In the rectum, retroflexion of the scope was performed for inspection of the distal rectum and anal canal. ?Significant colonoscopy findings: ?1. Quality of the preparation-good, [place] 2-3, improved with irrigation/suction ?2. Very difficult exam due to sigmoid stricture, clinical diverticular stricture, required EGD scope which allowed us to reach ileocecal valve, evidence for obstruction with considerable fecal contents proximal to stricture, extensive diverticulosis in sigmoid 3. Two adenomatous polyps just distal to stricture, one 1cm and one 5mm polyp, removed with hot snare and retrieved for pathology, difficult polypectomy at stricture Scope withdrawal time: 36 minutes Findings: divertiulosis and polyp(s) Specimen(s): other (polyps) Estimated Blood Loss: 5 Complications: none Impression: Clinical diverticular stricture in sigmoid Two sigmoid polyps removed for pathology Post-procedure Recommendations: Colonoscopy in 5 years Plan for aftercare: PACU then home Follow up: as needed Disposition: PACU
--- NOTE | 2025-07-14 07:58 | SUR.OPER ---
SWITCHED TO EGD SCOPE [id number]
[2025-07-14 08:55] VITALS: BP 113/58; PULSE 76; RESP 15; TEMP 36.2; O2SAT 95
[2025-07-14 09:14] VITALS: BP 125/68; PULSE 65; RESP 15; O2SAT 98
== END 2025-07-14 09:35 | disposition home or self-care (01) ==
PROVIDERS: PCP Family Medicine; Referring Provider Surgery; Visit Provider Surgery
PROC: 0DJD8ZZ Inspection of Lower Intestinal Tract, Via Natural or Artificial Opening Endoscopic (ICD-10-PCS; CPT 45378; principal; 2025-07-14 07:45)
DX: Z12.11 Encounter for screening for malignant neoplasm of colon (principal); K57.30 Diverticulosis of large intestine without perforation or abscess without bleeding; K56.699 Other intestinal obstruction unspecified as to partial versus complete obstruction; K63.5 Polyp of colon; E03.9 Hypothyroidism, unspecified
CPT/HCPCS: 45385; J1100; J1885; J2704; J7120